=== PATIENT | female | born 1940 | race Hispanic/Latino ===

== ENCOUNTER 2017-05-23 09:20 | Emergency (ER) | payer OTHER ==
--- OUTSIDE RECORDS SUMMARY | 2017-05-23 09:23 | XMS REPORT ---
:1940 Author Organization [facility] Address [address] [place] [address] [address] [place] [address] Care Team Providers Name Role Phone CHEY CHRISTIANSON TRINA Unavailable Unavailable KIKO DONAHUE Unavailable Unavailable Problems This patient has no known problems. Allergies, Adverse Reactions, Alerts This patient has no known allergies or adverse reactions. Medications This patient has no known medications. Results Test Description Test Time Test Comments Text Results Atomic Results Result Comments POCT-GLUCOSE METER 2017-03-18 11:50:00 Test Item Value Reference Range Comments POC-GLUCOSE METER (BEAKER) (test 209 mg/dL 70-110 TESTED AT [address] mfvj=8429) [place] [id number] POCT-GLUCOSE [id number] 07:46:00 Test Item Value Reference Range Comments POC-GLUCOSE METER (BEAKER) 108 mg/dL 70-110 TESTED AT [address] (test nmzi=0062) [place] [id number] POCT-GLUCOSE [id number] 20:55:00 Test Item Value Reference Range Comments POC-GLUCOSE METER (BEAKER) 265 mg/dL 70-110 TESTED AT [address] (test bynm=3325) [place] [id number] POCT-GLUCOSE [id number] 17:40:00 Test Item Value Reference Range Comments POC-GLUCOSE METER (BEAKER) 166 mg/dL 70-110 TESTED AT [address] (test jzvp=4400) [place] [address] B-TYPE NATRIURETIC FACTOR (BNP)2017-03-17 16:20:00 Test Item Value Reference Range Comments B-TYPE NATRIURETIC PEPTIDE (BEAKER) (test 190 pg/mL 0-100 rwjt=958) POCT-GLUCOSE [id number] 11:54:00 Test Item Value Reference Range Comments POC-GLUCOSE METER (BEAKER) 161 mg/dL 70-110 TESTED AT [address] (test sivi=8176) [facility] [address] POCT-GLUCOSE [id number] 07:56:00 Test Item Value Reference Range Comments POC-GLUCOSE METER (BEAKER) 110 mg/dL 70-[address] [facility] [address] [facility] (test piqo=0385) [facility] [address] [id number] 05:36:00 Test Item Value Reference Range Comments MAGNESIUM (BEAKER) (test zuhx=878) 1.7 mg/dL 1.6-2.6 BASIC METABOLIC [id number] 05:36:00 Test Item Value Reference Range Comments SODIUM (BEAKER) (test 138 meq/L 136-145 neqm=530) POTASSIUM (BEAKER) (test 4.1 meq/L 3.5-5.1 mquj=326) CHLORIDE (BEAKER) (test 101 meq/L 98-107 hbgg=514) CO2 (BEAKER) (test 26 meq/L 22-29 pgdv=963) BLOOD UREA NITROGEN 27 mg/dL 7-21 (BEAKER) (test cqrd=200) CREATININE (BEAKER) (test 1.20 mg/dL 0.57-1.25 xgeu=567) GLUCOSE RANDOM (BEAKER) 123 mg/dL 70-105 (test vyrw=311) CALCIUM (BEAKER) (test 8.6 mg/dL 8.4-10.2 urpe=029) EGFR (BEAKER) (test 43 mL/min/1.73 sq m ESTIMATED GFR IS NOT vbbq=6672) ACCURATE CREATININE CLEARANCE IN PREDICTING GLOMERULAR FILTRATION RATE. ESTIMATED GFR IS NOT APPLICABLE FOR DIALYSIS PATIENTS. CBC W/PLT COUNT & AUTO [id number] 04:29:00 Test Item Value Reference Range Comments WHITE BLOOD CELL COUNT (BEAKER) (test ufnk=064) 6.4 K/ L 3.5-10.5 RED BLOOD CELL COUNT (BEAKER) (test emvn=370) 3.54 M/ L 3.93-5.22 HEMOGLOBIN (BEAKER) (test kebf=051) 10.3 GM/DL 11.2-15.7 HEMATOCRIT (BEAKER) (test itwh=127) 32.9 % 34.1-44.9 MEAN CORPUSCULAR VOLUME (BEAKER) (test mzva=420) 92.9 fL 79.4-94.8 MEAN CORPUSCULAR HEMOGLOBIN (BEAKER) (test 29.1 pg 25.6-32.2 mhxg=153) MEAN CORPUSCULAR HEMOGLOBIN CONC (BEAKER) (test 31.3 GM/DL 32.2-35.5 igiy=741) RED CELL DISTRIBUTION WIDTH (BEAKER) (test 17.2 % 11.7-14.4 cmkc=908) PLATELET COUNT (BEAKER) (test ucaw=667) 131 K/CU MM 150-450 MEAN PLATELET VOLUME (BEAKER) (test rtrj=909) 9.8 fL 9.4-12.3 NUCLEATED RED BLOOD CELLS (BEAKER) (test 0 /100 WBC 0-0 wgpe=518) NEUTROPHILS RELATIVE PERCENT (BEAKER) (test 57 % dhug=929) LYMPHOCYTES RELATIVE PERCENT (BEAKER) (test 28 % ftcy=867) MONOCYTES RELATIVE PERCENT (BEAKER) (test 6 % kdqw=403) EOSINOPHILS RELATIVE PERCENT (BEAKER) (test 8 % zssb=042) BASOPHILS RELATIVE PERCENT (BEAKER) (test 1 % kwxm=100) NEUTROPHILS ABSOLUTE COUNT (BEAKER) (test 3.63 K/ L 1.56-6.13 dlyd=004) LYMPHOCYTES ABSOLUTE COUNT (BEAKER) (test 1.77 K/ L 1.18-3.74 vbxm=106) MONOCYTES ABSOLUTE COUNT (BEAKER) (test 0.41 K/ L 0.24-0.36 qhhk=282) EOSINOPHILS ABSOLUTE COUNT (BEAKER) (test 0.48 K/ L 0.04-0.36 uaxe=363) BASOPHILS ABSOLUTE COUNT (BEAKER) (test 0.05 K/ L 0.01-0.08 zjnh=165) IMMATURE GRANULOCYTES-RELATIVE PERCENT (BEAKER) 1 % 0-1 (test qucm=1096) POCT-GLUCOSE [id number] 21:13:00 Test Item Value Reference Range Comments POC-GLUCOSE METER (BEAKER) 254 mg/dL 70-110 TESTED AT [address] (test dccy=1605) [place] [address] POCT-GLUCOSE [id number] 16:43:00 Test Item Value Reference Range Comments POC-GLUCOSE METER (BEAKER) 169 mg/dL 70-110 TESTED AT [address] (test njja=3380) [place] [address] PET, CARDIAC PERFUSION MULTIPLE STUDIES, REST AND [id number] 16:37: 00Reason for exam:->new CHFFINAL REPORT PROCEDURE: Rest/Stress MYOCARDIAL PERFUSION PET with regadenoson\XA9\ CPT CODE: 63037 INDICATION: Coronary evaluation in a patient with newly diagnosed congestive heart failure HISTORY: Cardiac risk factors: Diabetes, hypertension. Other cardiovascular history: Congestive heart failure. Recent cardiac symptoms: Dyspnea. Current cardiovascular-related medications: Aspirin, carvedilol, furosemide, losartan. PROTOCOL: Limited low-dose CT imaging was performed for attenuation correction. 40.2 mCi of Rb-82 chloride was injected iv at rest, and gated PET (positron emission tomography) images were obtained. Subsequently, 40.1 mCi of Rb-82 chloride was injected iv at expected peak pharmacologic effect, and gated PET images were obtained. PRELIMINARY STRESS TEST DATA FROM NONINVASIVE CARDIOLOGY: Pharmacologic stress was by 10- second iv infusionof 0.4 mg of regadenoson. Radiotracer was injected 30 seconds after start of stress. Heart rate was 86 beats/min at rest and 90 beats/min (63 % of MPHR) at tracer injection. BP was 94/60 mmHg at rest and 92/54 mmHg at tracer injection. Stress was stopped for predetermined endpoint. The patient experienced no symptoms; treatment was not required. Preliminary ECG evaluation revealed sinus rhythm at restand no ischemic changes with stress. (Final ECG interpretation and other stress and monitoring data are reported separately by Cardiology.) IMAGING FINDINGS: Study quality is good. Images obtainedafter rest and stress injections show normal LV activity. LV and RV volumes appear normal. Gated images obtained at rest and with stress show normal LV wall motion and thickening. LVEF at rest is 38%. LVEF at stress is 50%. Chest and upper abdomen CT scan showed a dilated and tortuous descending aortawith marked calcification. IMPRESSION: 1. Abnormal study. 2. Appropriate pharmacologic stress.3. Normal myocardial perfusion. 4. Moderately reduced resting LV function. No deterioration of function is noted with pharmacologic stress. 5. Normal extracardiac tracer distribution. [facility]. [facility]. 7. Descending thoracoabdominal aortic aneurysm noted. NONINVASIVE RISK STRATIFICATION: The above findings are considered intermediate risk: 1. Mild/moderate resting LV dysfunction (EF 35-49%) Signed: Jean Paul Sampsonort Verified Date/Time: 03/16/2017 16:37:45 Reading Location: [place] [id number] Reading Room Electronically signed by: JEAN PAUL SAMPSON M.D.on 09/2017 04:37 PMPOCT-GLUCOSE [id number] 11:42:00 Test Item Value Reference Range Comments POC-GLUCOSE METER (BEAKER) 182 mg/dL 70-110 TESTED AT [address] (test djit=5933) [place] [address] SPUTUM CULTURE + GRAM [id number] 11:31:00 Test Item Value Reference Range Comments CULTURE (BEAKER) (test Oropharyngeal contamination, ofov=7992) specimen rejected. Recollect requested. GRAM STAIN RESULT (BEAKER) 1+ WBCs (test aqgu=4358) GRAM STAIN RESULT (BEAKER) >25 epithelial cells (test bxhj=59699) GRAM STAIN RESULT (BEAKER) 1+ gram negative rods (test uvtz=72694) GRAM STAIN RESULT (BEAKER) 1+ gram positive rods (test mqhg=583276) GRAM STAIN RESULT (BEAKER) 4+ gram positive cocci in chains, (test kjkb=371465) pairs and clusters POCT-GLUCOSE [id number] 06:57:00 Test Item Value Reference Range Comments POC-GLUCOSE METER (BEAKER) 138 mg/dL 70-110 TESTED AT [address] (test udrz=5389) [place] [address] [id number] 05:52:00 Test Item Value Reference Range Comments MAGNESIUM (BEAKER) (test xqky=537) 1.7 mg/dL 1.6-2.6 BASIC METABOLIC [id number] 05:52:00 Test Item Value Reference Range Comments SODIUM (BEAKER) (test 140 meq/L 136-145 fgcu=128) POTASSIUM (BEAKER) (test 3.6 meq/L 3.5-5.1 thrn=172) CHLORIDE (BEAKER) (test 103 meq/L 98-107 zdxr=656) CO2 (BEAKER) (test 28 meq/L 22-29 fyif=222) BLOOD UREA NITROGEN 26 mg/dL 7-21 (BEAKER) (test thvd=328) CREATININE (BEAKER) (test 1.04 mg/dL 0.57-1.25 dgcg=610) GLUCOSE RANDOM (BEAKER) 166 mg/dL 70-105 (test qono=326) CALCIUM (BEAKER) (test 8.6 mg/dL 8.4-10.2 puei=056) EGFR (BEAKER) (test 51 mL/min/1.73 sq m ESTIMATED GFR IS NOT twbe=8246) ACCURATE CREATININE CLEARANCE IN PREDICTING GLOMERULAR FILTRATION RATE. ESTIMATED GFR IS NOT APPLICABLE FOR DIALYSIS PATIENTS. B-TYPE NATRIURETIC FACTOR (BNP)2017-03-16 05:34:00 Test Item Value Reference Range Comments B-TYPE NATRIURETIC PEPTIDE (BEAKER) (test 230 pg/mL 0-100 eqib=550) CBC W/PLT COUNT & AUTO [id number] 05:10:00 Test Item Value Reference Range Comments WHITE BLOOD CELL COUNT (BEAKER) (test vpgr=582) 6.7 K/ L 3.5-10.5 RED BLOOD CELL COUNT (BEAKER) (test kxea=907) 3.36 M/ L 3.93-5.22 HEMOGLOBIN (BEAKER) (test jqdx=591) 9.7 GM/DL 11.2-15.7 HEMATOCRIT (BEAKER) (test guhw=748) 30.9 % 34.1-44.9 MEAN CORPUSCULAR VOLUME (BEAKER) (test czcc=321) 92.0 fL 79.4-94.8 MEAN CORPUSCULAR HEMOGLOBIN (BEAKER) (test 28.9 pg 25.6-32.2 wpzc=666) MEAN CORPUSCULAR HEMOGLOBIN CONC (BEAKER) (test 31.4 GM/DL 32.2-35.5 udtc=435) RED CELL DISTRIBUTION WIDTH (BEAKER) (test 17.1 % 11.7-14.4 fkhl=185) PLATELET COUNT (BEAKER) (test mdgn=892) 126 K/CU MM 150-450 MEAN PLATELET VOLUME (BEAKER) (test evvw=473) 10.1 fL 9.4-12.3 NUCLEATED RED BLOOD CELLS (BEAKER) (test 0 /100 WBC 0-0 ctyd=111) NEUTROPHILS RELATIVE PERCENT (BEAKER) (test 60 % rmmm=339) LYMPHOCYTES RELATIVE PERCENT (BEAKER) (test 24 % hhyc=816) MONOCYTES RELATIVE PERCENT (BEAKER) (test 7 % lvbc=740) EOSINOPHILS RELATIVE PERCENT (BEAKER) (test 7 % jpmk=497) BASOPHILS RELATIVE PERCENT (BEAKER) (test 1 % eovq=687) NEUTROPHILS ABSOLUTE COUNT (BEAKER) (test 4.03 K/ L 1.56-6.13 hflf=612) LYMPHOCYTES ABSOLUTE COUNT (BEAKER) (test 1.63 K/ L 1.18-3.74 djoj=030) MONOCYTES ABSOLUTE COUNT (BEAKER) (test 0.49 K/ L 0.24-0.36 vten=354) EOSINOPHILS ABSOLUTE COUNT (BEAKER) (test 0.47 K/ L 0.04-0.36 xvlb=721) BASOPHILS ABSOLUTE COUNT (BEAKER) (test 0.06 K/ L 0.01-0.08 aual=127) IMMATURE GRANULOCYTES-RELATIVE PERCENT (BEAKER) 0 % 0-1 (test gxth=0841) POCT-GLUCOSE [id number] 22:48:00 Test Item Value Reference Range Comments POC-GLUCOSE METER (BEAKER) 311 mg/dL 70-110 Notified ANGELIKA MONTENEGRO/TESTED AT [facility] (test pauz=0164) [address] [place] [address] POCT-GLUCOSE [id number] 21:25:00 Test Item Value Reference Range Comments POC-GLUCOSE METER (BEAKER) 386 mg/dL 70-110 Notified ANGELIKA MONTENEGRO/TESTED AT [facility] (test djxf=0889) [address] [place] [address] VITAMIN B12 AND [id number] 17:27:00 Test Item Value Reference Range Comments VITAMIN B12 (BEAKER) (test wlwo=616) 722 pg/mL 213-816 FOLATE (BEAKER) (test wieb=278) 33.6 ng/mL >=7.0 POCT-GLUCOSE [id number] 16:43:00 Test Item Value Reference Range Comments POC-GLUCOSE METER (BEAKER) 283 mg/dL 70-110 TESTED AT [address] (test nezs=4627) [facility] [address] TROPONIN [id number] 16:26:00 Test Item Value Reference Range Comments TROPONIN I (BEAKER) (test khxi=366) 0.03 ng/mL 0.00-0.03 Troponin I (TnI) levels must be interpreted in the context of the presenting symptoms and the clinical findings. Elevated TnI levels indicate myocardial damage, but are not specific for ischemic heart disease. Elevated TnI levels are seen in patients with other cardiac conditions (including myocarditis and congestive heart failure), and slight TnI elevations occur in patients with other conditions, including sepsis, renal failure, acidosis, acute neurological disease, and persistent tachyarrhythmia.[id number] 14:58:00 Test Item Value Reference Range Comments FERRITIN (BEAKER) (test knpx=496) 103 ng/mL 5-275 IRON, TIBC, % SAT. (WITHOUT FERRITIN)2017-03-15 14:04:00 Test Item Value Reference Range Comments IRON (BEAKER) (test zmco=585) 40 ug/dL 40-160 TOTAL IRON BINDING CAPACITY (BEAKER) (test 265 ug/dL 250-450 cmdr=799) IRON % SATURATION (2) (BEAKER) (test itud=2883) 15 % 20-55 HEMOGLOBIN AND [id number] 13:23:00 Test Item Value Reference Range Comments HEMOGLOBIN (BEAKER) (test iavn=974) 11.0 GM/DL 11.2-15.7 HEMATOCRIT (BEAKER) (test ljpy=047) 34.8 % 34.1-44.9 RESPIRATORY PANEL [id number] 11:18:00 Test Item Value Reference Range Comments HUMAN METAPNEUMOVIRUS (BEAKER) (test Not detected Not detected, Inconclusive abui=1181) RHINOVIRUS (BEAKER) (test mvho=6954) Not detected Not detected, Inconclusive INFLUENZA A (BEAKER) (test Not detected Not detected, Inconclusive gaot=2939) INFLUENZA A SUBTYPE H1 (BEAKER) Not detected Not detected, Inconclusive (test uohp=5403) INFLUENZA A SUBTYPE H3 (BEAKER) Not detected Not detected, Inconclusive (test mshb=0411) INFLUENZA A SUBTYPE H1-2009 (BEAKER) Not detected Not detected, Inconclusive (test rfim=3239) INFLUENZA B (BEAKER) (test Not detected Not detected, Inconclusive mjvy=4278) RESPIRATORY SYNCYTIAL VIRUS (BEAKER) Not detected Not detected, Inconclusive (test nmac=3850) PARAINFLUENZA VIRUS 1 (BEAKER) (test Not detected Not detected, Inconclusive hbpk=5326) PARAINFLUENZA VIRUS 2 (BEAKER) (test Not detected Not detected, Inconclusive qorl=2253) PARAINFLUENZA VIRUS 3 (BEAKER) (test Not detected Not detected, Inconclusive lgts=5709) PARAINFLUENZA VIRUS 4 (BEAKER) (test Not detected Not detected, Inconclusive cbwp=7290) ADENOVIRUS (BEAKER) (test wnwz=9724) Not detected Not detected, Inconclusive CORONAVIRUS 229E (BEAKER) (test Not detected Not detected, Inconclusive atvj=3715) CORONAVIRUS HKU1 (BEAKER) (test Not detected Not detected, Inconclusive ufhb=4752) CORONAVIRUS NL63 (BEAKER) (test Not detected Not detected, Inconclusive qyzm=4093) CORONAVIRUS OC43 (BEAKER) (test Not detected Not detected, Inconclusive ombl=3037) BORDETELLA PERTUSSIS (BEAKER) (test Not detected Not detected, Inconclusive cvsg=3119) CHLAMYDOPHILA PNEUMONIAE (BEAKER) Not detected Not detected, Inconclusive (test mhvi=1339) MYCOPLASMA PNEUMONIAE (BEAKER) (test Not detected Not detected, Inconclusive noba=0317) POCT-GLUCOSE [id number] 11:10:00 Test Item Value Reference Range Comments POC-GLUCOSE METER (BEAKER) 251 mg/dL 70-110 TESTED AT [address] (test wyew=7587) [place] [address] POCT-GLUCOSE [id number] 07:47:00 Test Item Value Reference Range Comments POC-GLUCOSE METER (BEAKER) 92 mg/dL 70-110 TESTED AT [address] (test slsa=4846) [place] [address] [id number] 05:58:00 Test Item Value Reference Range Comments THYROID STIMULATING HORMONE (BEAKER) (test 1.17 uIU/mL 0.35-4.94 isbe=739) [id number] 05:42:00 Test Item Value Reference Range Comments MAGNESIUM (BEAKER) (test kkbu=025) 1.5 mg/dL 1.6-2.6 BASIC METABOLIC [id number] 05:42:00 Test Item Value Reference Range Comments SODIUM (BEAKER) (test 141 meq/L 136-145 nfdj=252) POTASSIUM (BEAKER) (test 3.6 meq/L 3.5-5.1 igsx=002) CHLORIDE (BEAKER) (test 102 meq/L 98-107 tjci=008) CO2 (BEAKER) (test 28 meq/L 22-29 vvos=389) BLOOD UREA NITROGEN 22 mg/dL 7-21 (BEAKER) (test uciy=337) CREATININE (BEAKER) (test 0.92 mg/dL 0.57-1.25 wxwk=943) GLUCOSE RANDOM (BEAKER) 92 mg/dL 70-105 (test sybp=399) CALCIUM (BEAKER) (test 8.7 mg/dL 8.4-10.2 wjoh=228) EGFR (BEAKER) (test 59 mL/min/1.73 sq m ESTIMATED GFR IS NOT pebd=6771) ACCURATE CREATININE CLEARANCE IN PREDICTING GLOMERULAR FILTRATION RATE. ESTIMATED GFR IS NOT APPLICABLE FOR DIALYSIS PATIENTS. B-TYPE NATRIURETIC FACTOR (BNP)2017-03-15 05:38:00 Test Item Value Reference Range Comments B-TYPE NATRIURETIC PEPTIDE (BEAKER) (test 1095 pg/mL 0-100 wjty=832) LACTIC ACID, VENOUS, WHOLE [id number] 05:36:00 Test Item Value Reference Range Comments LACTATE BLOOD VENOUS (2) (BEAKER) (test 0.7 mmol/L 0.5-2.2 vrub=5869) Effective 06/10/2015: Units/Reference Range ChangeNew: 0.5-2.2 mmol/L Previous: 5 -20 mg/dLCBC W/PLT COUNT & AUTO [id number] 05:24:00 Test Item Value Reference Range Comments WHITE BLOOD CELL COUNT (BEAKER) (test lmwa=706) 8.1 K/ L 3.5-10.5 RED BLOOD CELL COUNT (BEAKER) (test orjv=331) 3.47 M/ L 3.93-5.22 HEMOGLOBIN (BEAKER) (test skld=532) 9.9 GM/DL 11.2-15.7 HEMATOCRIT (BEAKER) (test bpny=597) 31.4 % 34.1-44.9 MEAN CORPUSCULAR VOLUME (BEAKER) (test ekoa=710) 90.5 fL 79.4-94.8 MEAN CORPUSCULAR HEMOGLOBIN (BEAKER) (test 28.5 pg 25.6-32.2 lhis=913) MEAN CORPUSCULAR HEMOGLOBIN CONC (BEAKER) (test 31.5 GM/DL 32.2-35.5 nqyu=941) RED CELL DISTRIBUTION WIDTH (BEAKER) (test 17.1 % 11.7-14.4 tdlc=577) PLATELET COUNT (BEAKER) (test lnjr=463) 136 K/CU MM 150-450 MEAN PLATELET VOLUME (BEAKER) (test jmrc=645) 10.3 fL 9.4-12.3 NUCLEATED RED BLOOD CELLS (BEAKER) (test 0 /100 WBC 0-0 tuqb=175) NEUTROPHILS RELATIVE PERCENT (BEAKER) (test 60 % tabi=270) LYMPHOCYTES RELATIVE PERCENT (BEAKER) (test 24 % weag=559) MONOCYTES RELATIVE PERCENT (BEAKER) (test 8 % egny=200) EOSINOPHILS RELATIVE PERCENT (BEAKER) (test 7 % lhvn=086) BASOPHILS RELATIVE PERCENT (BEAKER) (test 1 % mlqh=586) NEUTROPHILS ABSOLUTE COUNT (BEAKER) (test 4.86 K/ L 1.56-6.13 vypv=293) LYMPHOCYTES ABSOLUTE COUNT (BEAKER) (test 1.92 K/ L 1.18-3.74 wtpf=281) MONOCYTES ABSOLUTE COUNT (BEAKER) (test 0.63 K/ L 0.24-0.36 rezv=006) EOSINOPHILS ABSOLUTE COUNT (BEAKER) (test 0.56 K/ L 0.04-0.36 chze=259) BASOPHILS ABSOLUTE COUNT (BEAKER) (test 0.06 K/ L 0.01-0.08 tmsd=136) IMMATURE GRANULOCYTES-RELATIVE PERCENT (BEAKER) 0 % 0-1 (test eexe=3043) POCT-GLUCOSE [id number] 00:10:00 Test Item Value Reference Range Comments POC-GLUCOSE METER (BEAKER) 252 mg/dL 70-110 TESTED AT [address] (test igsa=3178) [place] [address] POCT-GLUCOSE [id number] 21:11:00 Test Item Value Reference Range Comments POC-GLUCOSE METER (BEAKER) 411 mg/dL 70-110 Will Repeat Test/TESTED AT (test diqf=4935) [place] [address] [id number] 19:22:00 Test Item Value Reference Range Comments PARTIAL THROMBOPLASTIN TIME (BEAKER) (test 29.7 seconds 22.5-36.0 wxji=404) Prior to initiating heparinURINALYSIS W/ [id number] 19:16:00 Test Item Value Reference Range Comments COLOR (BEAKER) (test opiu=281) Light Yellow CLARITY (BEAKER) (test mtto=647) Clear SPECIFIC GRAVITY UA (BEAKER) (test knje=113) 1.009 1.001-1.035 PH UA (BEAKER) (test ymge=553) 5.5 5.0-8.0 PROTEIN UA (BEAKER) (test djfl=995) Negative Negative GLUCOSE UA (BEAKER) (test tqvb=188) 100 mg/dL Negative KETONES UA (BEAKER) (test dbrk=713) Negative Negative BILIRUBIN UA (BEAKER) (test hwug=995) Negative Negative BLOOD UA (BEAKER) (test nvxc=998) Negative Negative NITRITE UA (BEAKER) (test qtbo=765) Negative Negative LEUKOCYTE ESTERASE UA (BEAKER) (test bcvy=322) Negative Negative UROBILINOGEN UA (BEAKER) (test hxlb=627) 0.2 mg/dL 0.2-1.0 RBC UA (BEAKER) (test bahc=403) 1 /HPF WBC UA (BEAKER) (test irux=462) 1 /HPF SQUAMOUS EPITHELIAL (BEAKER) (test qzix=730) 2 /HPF SOURCE(BEAKER) (test emtp=7218) Urine, Voided RAPID STREP A [id number] 19:01:00 Test Item Value Reference Range Comments STREP A ANTIGEN (BEAKER) (test rone=381) Negative Negative CT, CHEST WITH IV CONTRAST- PE TEST [id number] 18:46:00Reason for exam:-& gt;SHORTNESS OF BREATHover the last 4 daysFINAL REPORT PE protocol Chest CT Clinical History: Short of breath Comparison: February 2014 Technique:413 images were submitted for interpretation. Precontrast axial images ofthe chest were obtained at the pulmonary artery level for the purpose of monitoring subsequent optimal contrast enhancement of the pulmonary arteries. Post contrast axial images of the chest were obtained from the thoracic inlet to the upper abdomen at 3 mm intervals. 3-D reconstruction and multiplanar reformation of the pulmonary arteries were performed by the dictating radiologist at the [facility] workstation. This exam was performed according to our departmental dose-optimization program which includes automated exposure control, adjustment of the mA and/or kV according to patient size and/or use ofiterative reconstruction technique. Report:Pulmonary circulation: There is no evidence of a filling defect or cut off sign. The distal vasculature is hard to evaluate inferiorly secondary to tortuosityAorta: Atherosclerotic change with dilatation of the descending thoracic aortaLungs: Fibrotic scarring at both lung apices. Emphysematous changes present with multiple peripheral blebs. Honeycomb lung is visualized inferiorly.Airways: There is no evidence of obstructionPleura: There is no evidence of apneumothorax or a pleural effusionMediastinum: The thyroid is not adequately seen. The visualized esophagus is unremarkable.Heart: ProminentPericardium: NegativeNodes: NegativeBones: Degenerative changeSupport lines and tubes: NegativeUpper abdomen : Unremarkable Impression:Specifically there is no evidence of a pulmonary embolus. Compared to the prior study worsening emphysematous changes are noted particularly in both lung bases.Aortic aneurysmal dilatation of the descending thoracic aorta not significantly changed as compared to the prior study Signed : Juany De La Cruz Verified Date/Time: 03/14/2017 18:46:13 Reading Location : [address] Consult Reading Room -[id number] 17:53:00 Test Item Value Reference Range Comments D-DIMER QUANTITATIVE (BEAKER) (test fyfv=493) 13.42 MG/L FEU <0.50 Intended Use: The D-Dimer Assay can be used to aid in the diagnosis of Deep Vein Thrombosis (DVT) and Pulmonary Embolism Disease (PED).In patients with low pre-test probability, various studies concerning STA Liatest D-dimer test have reported that with a cutoff value of 0.50 MG/L FEU, the Negative Predictive Value (NPV) regarding the exclusion of thrombosis is within 95-100% range.RAPID INFLUENZA A&B [id number] 17:01:00 Test Item Value Reference Range Comments RAPID INFLUENZA A AG (BEAKER) (test Negative Negative, Inconclusive orwf=8589) RAPID INFLUENZA B AG (BEAKER) (test Negative Negative, Inconclusive bjar=9837) RAD, CHEST, 1 VIEW, NON [id number] 15:14:00Reason for exam:->SHORTNESS OF BREATHover the last 4 daysFINAL REPORT Chest one view AP 03/14/2017 3:14 PM CLINICAL INDICATION: SHORTNESS OF BREATH COMPARISON: 2014 IMPRESSION: There are chronic appearing fibrotic changes in both lungs. Superimposed acute infectious/inflammatory process should be excluded clinically. The cardiac silhouette is enlarged, but stable. The central pulmonary vasculature is not engorged. Signed: Hai Garcia Verified Date/Time: 03/14/2017 15:14:37 Reading Location: [address] Consult Reading Room CREATINE KINASE (CK), TOTAL AND [id number] 14:52:00 Test Item Value Reference Range Comments CREATINE KINASE TOTAL (BEAKER) (test bale=973) 32 U/L 29-200 CREATINE KINASE-MB (BEAKER) (test wbhc=539) 1.5 ng/mL 0.0-6.6 CREATINE KINASE-MB INDEX (BEAKER) (test wxfu=575) 4.7 % CK-MB Reference Range:<6.7 Normal6.7-10.0 Borderline>10.0 AbnormalTROPONIN [id number] 14:52:00 Test Item Value Reference Range Comments TROPONIN I (BEAKER) (test skts=809) 0.03 ng/mL 0.00-0.03 Troponin I (TnI) levels must be interpreted in the context of the presenting symptoms and the clinical findings. Elevated TnI levels indicate myocardial damage, but are not specific for ischemic heart disease. Elevated TnI levels are seen in patients with other cardiac conditions (including myocarditis and congestive heart failure), and slight TnI elevations occur in patients with other conditions, including sepsis, renal failure, acidosis, acute neurological disease, and persistent tachyarrhythmia.B-TYPE NATRIURETIC FACTOR (BNP) 14:52:00 Test Item Value Reference Range Comments B-TYPE NATRIURETIC PEPTIDE (BEAKER) (test 1761 pg/mL 0-100 reth=983) [id number] 14:45:00 Test Item Value Reference Range Comments MAGNESIUM (BEAKER) (test 2.0 mg/dL 1.6-2.6 Specimen slightly hemolyzed haah=260) BASIC METABOLIC [id number] 14:45:00 Test Item Value Reference Range Comments SODIUM (BEAKER) (test 136 meq/L 136-145 ndcw=704) POTASSIUM (BEAKER) (test 4.2 meq/L 3.5-5.1 Specimen slightly xqfh=635) hemolyzed CHLORIDE (BEAKER) (test 104 meq/L 98-107 kakc=567) CO2 (BEAKER) (test 26 meq/L 22-29 tcga=184) BLOOD UREA NITROGEN 24 mg/dL 7-21 (BEAKER) (test zitj=218) CREATININE (BEAKER) (test 1.06 mg/dL 0.57-1.25 Specimen slightly ppob=552) hemolyzed GLUCOSE RANDOM (BEAKER) 243 mg/dL 70-105 (test voqu=388) CALCIUM (BEAKER) (test 8.5 mg/dL 8.4-10.2 uwed=960) EGFR (BEAKER) (test 50 mL/min/1.73 sq m ESTIMATED GFR IS NOT wlnn=9400) ACCURATE CREATININE CLEARANCE IN PREDICTING GLOMERULAR FILTRATION RATE. ESTIMATED GFR IS NOT APPLICABLE FOR DIALYSIS PATIENTS. CBC W/PLT COUNT & AUTO [id number] 14:29:00 Test Item Value Reference Range Comments WHITE BLOOD CELL COUNT (BEAKER) (test xeqb=468) 9.8 K/ L 3.5-10.5 RED BLOOD CELL COUNT (BEAKER) (test asot=958) 3.75 M/ L 3.93-5.22 HEMOGLOBIN (BEAKER) (test ygot=364) 10.9 GM/DL 11.2-15.7 HEMATOCRIT (BEAKER) (test iilz=201) 35.3 % 34.1-44.9 MEAN CORPUSCULAR VOLUME (BEAKER) (test ndvf=277) 94.1 fL 79.4-94.8 MEAN CORPUSCULAR HEMOGLOBIN (BEAKER) (test 29.1 pg 25.6-32.2 fmuc=608) MEAN CORPUSCULAR HEMOGLOBIN CONC (BEAKER) (test 30.9 GM/DL 32.2-35.5 bvil=788) RED CELL DISTRIBUTION WIDTH (BEAKER) (test 17.4 % 11.7-14.4 jpri=939) PLATELET COUNT (BEAKER) (test carm=293) 131 K/CU MM 150-450 MEAN PLATELET VOLUME (BEAKER) (test eqwv=825) 10.3 fL 9.4-12.3 NUCLEATED RED BLOOD CELLS (BEAKER) (test 0 /100 WBC 0-0 gwej=808) NEUTROPHILS RELATIVE PERCENT (BEAKER) (test 62 % kavd=161) LYMPHOCYTES RELATIVE PERCENT (BEAKER) (test 23 % vafx=572) MONOCYTES RELATIVE PERCENT (BEAKER) (test 7 % xvxd=781) EOSINOPHILS RELATIVE PERCENT (BEAKER) (test 7 % zyiz=091) BASOPHILS RELATIVE PERCENT (BEAKER) (test 1 % njmz=098) NEUTROPHILS ABSOLUTE COUNT (BEAKER) (test 6.08 K/ L 1.56-6.13 zjcy=261) LYMPHOCYTES ABSOLUTE COUNT (BEAKER) (test 2.29 K/ L 1.18-3.74 fmzo=123) MONOCYTES ABSOLUTE COUNT (BEAKER) (test 0.66 K/ L 0.24-0.36 qbgi=594) EOSINOPHILS ABSOLUTE COUNT (BEAKER) (test 0.68 K/ L 0.04-0.36 kypl=503) BASOPHILS ABSOLUTE COUNT (BEAKER) (test 0.06 K/ L 0.01-0.08 pekh=635) IMMATURE GRANULOCYTES-RELATIVE PERCENT (BEAKER) 0 % 0-1 (test ibam=5894) POCT-GLUCOSE [id number] 11:44:00 Test Item Value Reference Range Comments POC-GLUCOSE METER (BEAKER) 220 mg/dL 70-110 TESTED AT [address] (test uceh=7328) [place] [id number] POCT-GLUCOSE [id number] 07:00:00 Test Item Value Reference Range Comments POC-GLUCOSE METER (BEAKER) 173 mg/dL 70-110 TESTED AT [address] (test uybm=1634) [facility] [address] CBC W/PLT COUNT & AUTO [id number] 04:54:00 Test Item Value Reference Range Comments WHITE BLOOD CELL COUNT (BEAKER) (test ejoo=306) 6.8 K/ L 3.5-10.5 RED BLOOD CELL COUNT (BEAKER) (test oxhj=184) 3.49 M/ L 3.93-5.22 HEMOGLOBIN (BEAKER) (test yzgu=153) 10.1 GM/DL 11.2-15.7 HEMATOCRIT (BEAKER) (test hylx=401) 33.5 % 34.1-44.9 MEAN CORPUSCULAR VOLUME (BEAKER) (test ermo=483) 96.0 fL 79.4-94.8 MEAN CORPUSCULAR HEMOGLOBIN (BEAKER) (test 28.9 pg 25.6-32.2 rzdb=506) MEAN CORPUSCULAR HEMOGLOBIN CONC (BEAKER) (test 30.1 GM/DL 32.2-35.5 jftc=011) RED CELL DISTRIBUTION WIDTH (BEAKER) (test 15.5 % 11.7-14.4 xtsi=590) PLATELET COUNT (BEAKER) (test mglf=783) 144 K/CU MM 150-450 MEAN PLATELET VOLUME (BEAKER) (test ijag=414) 9.4 fL 9.4-12.3 NUCLEATED RED BLOOD CELLS (BEAKER) (test 0 /100 WBC 0-0 kaqs=919) NEUTROPHILS RELATIVE PERCENT (BEAKER) (test 54 % qixm=334) LYMPHOCYTES RELATIVE PERCENT (BEAKER) (test 29 % zkeo=859) MONOCYTES RELATIVE PERCENT (BEAKER) (test 8 % mcty=132) EOSINOPHILS RELATIVE PERCENT (BEAKER) (test 7 % nvwo=102) BASOPHILS RELATIVE PERCENT (BEAKER) (test 1 % lkqf=094) NEUTROPHILS ABSOLUTE COUNT (BEAKER) (test 3.65 K/ L 1.56-6.13 gyga=926) LYMPHOCYTES ABSOLUTE COUNT (BEAKER) (test 1.99 K/ L 1.18-3.74 ctfh=719) MONOCYTES ABSOLUTE COUNT (BEAKER) (test 0.54 K/ L 0.24-0.36 yqel=932) EOSINOPHILS ABSOLUTE COUNT (BEAKER) (test 0.49 K/ L 0.04-0.36 xlzk=442) BASOPHILS ABSOLUTE COUNT (BEAKER) (test 0.06 K/ L 0.01-0.08 njdu=124) IMMATURE GRANULOCYTES-RELATIVE PERCENT (BEAKER) 1 % 0-1 (test gytp=5447) BASIC METABOLIC [id number] 04:33:00 Test Item Value Reference Range Comments SODIUM (BEAKER) (test 128 meq/L 136-145 xljk=858) POTASSIUM (BEAKER) (test 4.7 meq/L 3.5-5.1 wgdi=179) CHLORIDE (BEAKER) (test 99 meq/L 98-107 bbos=325) CO2 (BEAKER) (test 23 meq/L 22-29 uzvo=812) BLOOD UREA NITROGEN 18 mg/dL 7-21 (BEAKER) (test pyyg=110) CREATININE (BEAKER) (test 1.18 mg/dL 0.57-1.25 dxhd=769) GLUCOSE RANDOM (BEAKER) 174 mg/dL 70-105 (test uxug=193) CALCIUM (BEAKER) (test 8.1 mg/dL 8.4-10.2 vrvk=287) EGFR (BEAKER) (test 44 mL/min/1.73 sq m ESTIMATED GFR IS NOT ghpu=7555) ACCURATE CREATININE CLEARANCE IN PREDICTING GLOMERULAR FILTRATION RATE. ESTIMATED GFR IS NOT APPLICABLE FOR DIALYSIS PATIENTS. POCT-GLUCOSE [id number] 20:41:00 Test Item Value Reference Range Comments POC-GLUCOSE METER (BEAKER) 164 mg/dL 70-110 TESTED AT [address] (test ennz=9498) [facility] [address] POCT-GLUCOSE [id number] 16:54:00 Test Item Value Reference Range Comments POC-GLUCOSE METER (BEAKER) 332 mg/dL 70-110 Notified ANGELIKA MONTENEGRO/TESTED AT [facility] (test xijn=4784) [address] [place] [id number] URINALYSIS W/ REFLEX URINE [id number] 15:16:00 Test Item Value Reference Range Comments COLOR (BEAKER) (test jvky=391) Yellow CLARITY (BEAKER) (test idcn=247) Hazy SPECIFIC GRAVITY UA (BEAKER) (test tyas=043) 1.016 1.001-1.035 PH UA (BEAKER) (test igkf=254) 6.5 5.0-8.0 PROTEIN UA (BEAKER) (test dxfc=807) 50 mg/dL Negative GLUCOSE UA (BEAKER) (test lmmh=615) 200 mg/dL Negative KETONES UA (BEAKER) (test dcgh=732) Negative Negative BILIRUBIN UA (BEAKER) (test kwzb=560) Negative Negative BLOOD UA (BEAKER) (test zvcs=860) Negative Negative NITRITE UA (BEAKER) (test psir=000) Negative Negative LEUKOCYTE ESTERASE UA (BEAKER) (test jfad=207) Negative Negative UROBILINOGEN UA (BEAKER) (test fklx=160) 0.2 mg/dL 0.2-1.0 RBC UA (BEAKER) (test zhjc=454) 0 /HPF WBC UA (BEAKER) (test igml=351) < /HPF MUCUS (BEAKER) (test dule=3927) Rare SQUAMOUS EPITHELIAL (BEAKER) (test ijvo=322) 6 /HPF HYALINE CASTS (BEAKER) (test mmjz=222) 2 /LPF CASTS (BEAKER) (test mghd=4794) 2 /LPF SOURCE(BEAKER) (test ddzc=5059) POCT-GLUCOSE [id number] 11:22:00 Test Item Value Reference Range Comments POC-GLUCOSE METER (BEAKER) 251 mg/dL 70-[address] [facility] [address] [place] [address] (test nejl=5261) [facility] [address] POCT-GLUCOSE [id number] 06:48:00 Test Item Value Reference Range Comments POC-GLUCOSE METER (BEAKER) 289 mg/dL 70-110 TESTED AT [address] (test ckfc=8517) [facility] [address] HEPATIC FUNCTION [id number] 06:19:00 Test Item Value Reference Range Comments TOTAL PROTEIN (BEAKER) (test bdls=662) 7.4 gm/dL 6.0-8.3 ALBUMIN (BEAKER) (test exzs=8018) 3.5 g/dL 3.5-5.0 BILIRUBIN TOTAL (BEAKER) (test ltzy=498) 0.4 mg/dL 0.2-1.2 BILIRUBIN DIRECT (BEAKER) (test alva=234) 0.2 mg/dL 0.1-0.5 ALKALINE PHOSPHATASE (BEAKER) (test scgb=977) 63 U/L 40-150 AST (SGOT) (BEAKER) (test dpry=788) 12 U/L 5-34 ALT (SGPT) (BEAKER) (test wgky=907) < U/L 6-55 BASIC METABOLIC [id number] 06:14:00 Test Item Value Reference Range Comments SODIUM (BEAKER) (test 133 meq/L 136-145 ssfr=031) POTASSIUM (BEAKER) (test 4.1 meq/L 3.5-5.1 idke=486) CHLORIDE (BEAKER) (test 99 meq/L 98-107 wudz=529) CO2 (BEAKER) (test 25 meq/L 22-29 lupu=655) BLOOD UREA NITROGEN 14 mg/dL 7-21 (BEAKER) (test lepe=682) CREATININE (BEAKER) (test 1.06 mg/dL 0.57-1.25 lirv=888) GLUCOSE RANDOM (BEAKER) 266 mg/dL 70-105 (test usxe=292) CALCIUM (BEAKER) (test 8.8 mg/dL 8.4-10.2 khva=696) EGFR (BEAKER) (test 50 mL/min/1.73 sq m ESTIMATED GFR IS NOT bxte=7653) ACCURATE CREATININE CLEARANCE IN PREDICTING GLOMERULAR FILTRATION RATE. ESTIMATED GFR IS NOT APPLICABLE FOR DIALYSIS PATIENTS. [id number] 05:47:00 Test Item Value Reference Range Comments PROTIME (BEAKER) (test uglw=112) 16.5 seconds 11.7-14.7 INR (BEAKER) (test rxob=848) 1.3 <=5.9 PARTIAL THROMBOPLASTIN TIME (BEAKER) (test 31.0 seconds 22.5-36.0 derp=368) RECOMMENDED COUMADIN/WARFARIN INR THERAPY RANGESSTANDARD DOSE: 2.0 - 3.0 Includes: PROPHYLAXIS forvenous thrombosis, systemic embolization; TREATMENT for venous thrombosis and/or pulmonary embolus.HIGH RISK: Target INR is 2.5-3.5 for patients with mechanical heart valves.CBC W/PLT COUNT & AUTO [id number] 05:39:00 Test Item Value Reference Range Comments WHITE BLOOD CELL COUNT (BEAKER) (test hpec=229) 6.6 K/ L 3.5-10.5 RED BLOOD CELL COUNT (BEAKER) (test hwpb=398) 3.87 M/ L 3.93-5.22 HEMOGLOBIN (BEAKER) (test ontp=760) 11.3 GM/DL 11.2-15.7 HEMATOCRIT (BEAKER) (test rfux=815) 36.6 % 34.1-44.9 MEAN CORPUSCULAR VOLUME (BEAKER) (test oosq=614) 94.6 fL 79.4-94.8 MEAN CORPUSCULAR HEMOGLOBIN (BEAKER) (test 29.2 pg 25.6-32.2 wueo=823) MEAN CORPUSCULAR HEMOGLOBIN CONC (BEAKER) (test 30.9 GM/DL 32.2-35.5 hwkw=068) RED CELL DISTRIBUTION WIDTH (BEAKER) (test 15.9 % 11.7-14.4 wmcv=801) PLATELET COUNT (BEAKER) (test tjqk=400) 213 K/CU MM 150-450 MEAN PLATELET VOLUME (BEAKER) (test wwvz=688) 9.1 fL 9.4-12.3 NUCLEATED RED BLOOD CELLS (BEAKER) (test 0 /100 WBC 0-0 rzmm=497) NEUTROPHILS RELATIVE PERCENT (BEAKER) (test 58 % fhwp=413) LYMPHOCYTES RELATIVE PERCENT (BEAKER) (test 29 % mnmi=167) MONOCYTES RELATIVE PERCENT (BEAKER) (test 8 % qjps=938) EOSINOPHILS RELATIVE PERCENT (BEAKER) (test 4 % kmvp=655) BASOPHILS RELATIVE PERCENT (BEAKER) (test 1 % yeot=860) NEUTROPHILS ABSOLUTE COUNT (BEAKER) (test 3.77 K/ L 1.56-6.13 ezph=859) LYMPHOCYTES ABSOLUTE COUNT (BEAKER) (test 1.88 K/ L 1.18-3.74 bazb=378) MONOCYTES ABSOLUTE COUNT (BEAKER) (test 0.52 K/ L 0.24-0.36 pnbg=809) EOSINOPHILS ABSOLUTE COUNT (BEAKER) (test 0.28 K/ L 0.04-0.36 kfub=439) BASOPHILS ABSOLUTE COUNT (BEAKER) (test 0.07 K/ L 0.01-0.08 fopf=040) IMMATURE GRANULOCYTES-RELATIVE PERCENT (BEAKER) 1 % 0-1 (test uhwf=0688) POCT-GLUCOSE [id number] 05:09:00 Test Item Value Reference Range Comments POC-GLUCOSE METER (BEAKER) 256 mg/dL 70-110 TESTED AT [address] (test gbxy=5763) [place] [address] POCT-GLUCOSE [id number] 21:00:00 Test Item Value Reference Range Comments POC-GLUCOSE METER (BEAKER) 215 mg/dL 70-110 TESTED AT [address] (test sfpq=0982) [place] [address]
--- OUTSIDE RECORDS SUMMARY | 2017-05-23 09:23 | XMS REPORT | Clinical Summary ---
:1940 Author Organization [facility] Address [address] [place] [address] Phone Care Team Providers Name Role Phone Unavailable Primary Care Provider Unavailable Allergies Active Allergy Reactions Severity Noted Date Comments Morphine Nausea And Vomiting 02/27/2014 Penicillins Rash Low 09/10/2012 Current Medications Prescription Sig. Disp. Refills Start End Date Status Date levothyroxine Take 100 mcg by Active (SYNTHROID, mouth daily. LEVOTHROID) 100 MCG tablet pravastatin Take 40 mg by mouth Active (PRAVACHOL) 40 MG daily. tablet alendronate Take 70 mg by mouth Active (FOSAMAX) 70 MG every 7 days. Take tablet Monday in the morning with a full glass of water, on an empty stomach, and do not take anything else by mouth or lie down for the next 30 min. aspirin 81 MG EC Take 81 mg by mouth Active tablet daily. benzonatate Take 100 mg by Active (TESSALON) 100 MG mouth 3 (three) capsule times daily as needed for Cough. insulin glargine Inject 8 Units Active (LANTUS) 100 subcutaneously unit/mL injection nightly Use as directed . albuterol HFA Inhale 2 puffs by Active (VENTOLIN HFA) 90 mouth via inhaler mcg/actuation every 6 (six) hours inhaler as needed for Wheezing or Shortness of Breath. insulin aspart Inject 2 Units Active (NOVOLOG) 100 subcutaneously 3 unit/mL injection (three) times daily before meals. cycloSPORINE Place 1 drop into Active (RESTASIS) 0.05 % both eyes every 12 ophthalmic (twelve) hours. emulsion folic acid Take 1 mg by mouth Active (FOLVITE) 1 MG daily. tablet codeine-guaifenesi Take 5 mLs by mouth Active n (GUAIFENESIN AC) every night as 10-100 mg/5 mL needed for Cough. liquid latanoprost Place 1 drop into Active (XALATAN) 0.005 % both eyes nightly. ophthalmic solution leflunomide Take 20 mg by mouth Active (ARAVA) 20 MG nightly. tablet levalbuterol Take 1 ampule by Active (XOPENEX) 0.63 nebulization every mg/3 mL nebulizer 6 (six) hours as solution needed for Wheezing or Shortness of Breath. pregabalin Take 100 mg by Active (LYRICA) 100 MG mouth 2 (two) times capsule daily. carvedilol (COREG) Take 1 tablet 60 tablet 0 03/18/19 Active 3.125 MG tablet (3.125 mg total) by 8 19 mouth 2 (two) times daily. furosemide (LASIX) Take 1 tablet (20 20 tablet 0 03/20/19 Active 20 MG tablet mg total) by mouth 8 19 every other day. losartan (COZAAR) Take 1 tablet (25 30 tablet 0 03/19/19 Active 25 MG tablet mg total) by mouth 8 19 daily. magnesium oxide Take 1 tablet (400 30 tablet 0 03/18/19 Active (MAG-OX) 400 mg mg total) by mouth 8 19 tablet daily. senna-docusate Take 1 tablet by 20 tablet 0 03/18/19 Active (SENOKOT S) 8.6-50 mouth 2 (two) times 8 19 mg per tablet daily as needed for Constipation. cholecalciferol, Take 50,000 Units 03/14/19 Discontinued vitamin D3, 50,000 by mouth daily. 18 unit capsule glimepiride Take 2 mg by mouth 03/18/19 Discontinued (AMARYL) 2 MG every morning 18 tablet before breakfast. insulin aspart Inject 03/14/19 Discontinued (NOVOLOG) 100 subcutaneously 2 18 unit/mL injection (two) times daily with breakfast and lunch. lisinopril Take 5 mg by mouth 03/18/19 Discontinued (PRINIVIL,ZESTRIL) daily. 18 5 MG tablet gabapentin Take 300 mg by 10/14/19 Discontinued (NEURONTIN) 300 MG mouth 3 (three) 17 capsule times daily. atenolol Take 25 mg by mouth 03/18/19 Discontinued (TENORMIN) 25 MG daily. 18 tablet baclofen Take 10 mg by mouth 03/18/19 Discontinued (LIORESAL) 10 MG 3 (three) times 18 tablet daily. pregabalin Take 100 mg by 03/14/19 Discontinued (LYRICA) 75 MG mouth 2 (two) times 18 capsule daily . leflunomide Take 10 mg by mouth 03/14/19 Discontinued (ARAVA) 10 MG daily. 18 tablet cilostazol Take 50 mg by mouth 03/18/19 Discontinued (PLETAL) 50 MG 2 (two) times 18 tablet daily. ibuprofen Take 800 mg by 03/18/19 Discontinued (ADVIL,MOTRIN) 800 mouth every 8 18 MG tablet (eight) hours as needed for Pain. amitriptyline Take 10 mg by mouth 03/18/19 Discontinued (ELAVIL) 10 MG nightly. 18 tablet Active Problems Problem Noted Date CKD (chronic kidney disease) stage 3, GFR 30-59 ml/min 03/18/2017 Anemia 03/15/2017 Moderate malnutrition ([facility]) 03/15/2017 Acute combined systolic and diastolic heart failure ([facility]) 03/15/2017 Moderate aortic regurgitation 03/15/2017 Pulmonary fibrosis ([facility]) 03/15/2017 Acute on chronic respiratory failure with hypoxia ([facility]) 03/14/2017 Hypothyroidism 03/14/2017 Rheumatoid arthritis involving multiple sites ([facility]) 03/14/2017 History of Thoracic aortic aneurysm without rupture ([facility]) 03/14/2017 Diabetes mellitus type 2, insulin dependent ([facility]) 09/26/2012 Essential hypertension 09/26/2012 Resolved Problems Problem Noted Date Resolved Date Hypotension 03/15/2017 03/15/2017 Shortness of breath 03/14/2017 03/14/2017 Acute CHF (congestive heart failure) ([facility]) 03/14/2017 03/15/2017 ILD (interstitial lung disease) ([facility]) 03/14/2017 03/15/2017 Intractable back pain 10/11/2016 03/14/2017 Fever postop 09/27/2012 03/14/2017 Hyperkalemia 09/26/2012 03/14/2017 Dyslipidemia 09/26/2012 03/14/2017 OA (osteoarthritis) 09/25/2012 03/14/2017 Encounters Date Type Specialty Care Team Description 03/14/2017 - Hospital Encounter Cardiology Richard Kelly Shortness of breath 03/18/2017 MD Ubaldo (Primary Maris, Fernando M., Dx);Pulmonary MD fibrosis ([facility]) 03/14/2017 Orders Only General Internal Medicine 10/11/2016 - Hospital Encounter Cardiology Elicia, 10/13/2016 MD Tucker Mojicaull, Karla Hensley MD after 05/22/2016 Family History Medical History Relation Name Comments Diabetes Brother Arthritis Daughter Cancer Mother Arthritis Sister Diabetes Sister Heart disease Sister Hypertension Sister Heart disease Son Relation Name Status Comments Brother Daughter Mother Sister Son Social History Tobacco Use Types Packs/Day Years Used Date Former Smoker Quit: 02/06/2010 Smokeless Tobacco: Never Used Alcohol Use Drinks/Week oz/Week Comments No Sex Assigned at Date Recorded Not on file Last Filed Vital Signs Vital Sign Reading Time Taken Blood Pressure 95/58 03/18/2017 12:28 PM [employer] Pulse 85 03/18/2017 12:28 PM [employer] Temperature 35.6 C (96 F) 03/18/2017 12:28 PM [employer] Respiratory Rate 18 03/18/2017 12:28 PM [employer] Oxygen Saturation 97% 03/18/2017 12:28 PM [employer] Inhaled Oxygen Concentration - - Weight 59 kg (130 lb 1.1 oz) 03/18/2017 7:48 AM [employer] Height 167.6 cm (5' 6") 03/14/2017 1:42 PM [employer] Body Mass Index 20.99 03/18/2017 7:48 AM [employer] Plan of Treatment Health Maintenance Due Date Last Done Comments INFLUENZA VACCINE 11/06/2017 Implants Implanted Type Area Acoustic Warfare Analyst Device Expiration Model / Identifier Date Serial / Lot Cement,Bone [place] Hv 40gm - [id number] Cement/Fill Right: 03/08/2014 [id number] / Implanted: Qty: 1 on 09/25/2012 by Esequiel Ruiz MD er/Adhesive Knee / [id number] Cement,[place] G Hv 40/20gm - [id number] Cement/Fill Right: 11/05/2012 [id number] / Implanted: Qty: 1 on 09/25/2012 by Esequiel Ruiz MD er/Adhesive Knee / [id number] Patella,3-Peg Arcom Thin Series A 34x7.8mm - [id number] Joints Right: 08/05 [id number] / Implanted: Qty: 1 on 09/25/2012 by Esequiel Ruiz MD Knee / [id number] Fem Comp,Vanguard Cr Interlok Right 65mm - [id number] Joints Right: 2022 [id number] / Implanted: Qty: 1 on 09/25/2012 by Esequiel Ruiz MD Knee / [id number] Vanguard (Tm) Cr [place]-Lock (Tm) Tibial Bearing 10mm*71mm Joints Right: 02/05/2017 [id number] / Implanted: Qty: 1 on 09/25/2012 by Esequiel Ruiz MD Knee / [id number] Results RHYTHM STRIP - SCAN (03/21/2017 8:00 AM)Only the most recent of3 resultswithin the time period is included.POC-Glucose meter (03/18/2017 11:30 AM)Only the most recent of25 resultswithin the time period is included. Component Value Ref Range POC-Glucose Meter 209 (H)Comment: TESTED AT [address] 70 - 110 mg/[place] [address] Specimen Performing Laboratory Blood [facility] [address] [address] CBC with platelet count + automated diff (03/17/2017 4:00 AM)Only the most recent of6 resultswithin the time period is included. Component Value Ref Range WBC 6.4 3.5 - 10.5 K/L RBC 3.54 (L) 3.93 - 5.22 M/L Hemoglobin 10.3 (L) 11.2 - 15.7 GM/DL Hematocrit 32.9 (L) 34.1 - 44.9 % MCV 92.9 79.4 - 94.8 fL MCH 29.1 25.6 - 32.2 pg MCHC 31.3 (L) 32.2 - 35.5 GM/DL RDW 17.2 (H) 11.7 - 14.4 % Platelets 131 (L) 150 - 450 K/CU MM MPV 9.8 9.4 - 12.3 fL nRBC 0 0 - 0 /100 WBC % Neutros 57 % % Lymphs 28 % % Monos 6 % % Eos 8 % % Baso 1 % # Neutros 3.63 1.56 - 6.13 K/L # Lymphs 1.77 1.18 - 3.74 K/L # Monos 0.41 (H) 0.24 - 0.36 K/L # Eos 0.48 (H) 0.04 - 0.36 K/L # Baso 0.05 0.01 - 0.08 K/L Immature Granulocytes-Relative 1 0 - 1 % Specimen Performing Laboratory Blood [address] [address] CBC with platelet count + automated diff (03/17/2017 4:00 AM)Only the most recent of6 resultswithin the time period is included. Specimen Performing Laboratory Blood Narrative The following orders were created for panel order CBC with platelet count + automated diff. Procedure Abnormality Status --------- ------ CBC with platelet count ...[[id number]]AbnormalFinal result Please view results for these tests on the individual orders. B-type Natriuretic Factor (BNP) (03/17/2017 4:00 AM)Only the most recent of4 resultswithin the time period is included. Component Value Ref Range BNP 190 (H) 0 - 100 pg/mL Specimen Performing Laboratory Blood [address] [address] Magnesium (03/17/2017 4:00 AM)Only the most recent of4 resultswithin the time period is included. Component Value Ref Range Magnesium 1.7 1.6 - 2.6 mg/dL Specimen Performing Laboratory Blood [address] [address] Basic Metabolic Panel (03/17/2017 4:00 AM)Only the most recent of6 resultswithin the time period is included. Component Value Ref Range Sodium 138 136 - 145 meq/L Potassium 4.1 3.5 - 5.1 meq/L Chloride 101 98 - 107 meq/L CO2 26 22 - 29 meq/L BUN 27 (H) 7 - 21 mg/dL Creatinine 1.20 0.57 - 1.25 mg/dL Glucose 123 (H) 70 - 105 mg/dL Calcium 8.6 8.4 - 10.2 mg/dL EGFR 43Comment: ESTIMATED GFR IS NOT ACCURATE mL/min/1.73 sq m CREATININE CLEARANCE IN PREDICTING GLOMERULAR FILTRATION RATE. ESTIMATED GFR IS NOT APPLICABLE FOR DIALYSIS PATIENTS. Specimen Performing Laboratory Blood [facility] [address] [address] NM myocardial perfusion PET (rest and stress) (03/16/2017 3:53 PM) Specimen Performing Laboratory TATI Schilling FINAL REPORT PROCEDURE: Rest/Stress MYOCARDIAL PERFUSION PET with regadenoson\\XA9\\ CPT CODE: 43396 INDICATION: Coronary evaluation in a patient with [...] FROM NONINVASIVE CARDIOLOGY: Pharmacologic stress was by 10-second iv infusion of 0.4 mg of regadenoson. Radiotracer was injected 30 seconds after start of stress. Heart rate was 86 beats/min at rest and 90 beats/min (63% of MPHR) at tracer injection. BP was 94/60 mmHg at rest and 92/54 mmHg at tracer injection. Stress was stopped for predetermined endpoint. The patient experienced no symptoms; treatment was not required. Preliminary ECG evaluation revealed sinus rhythm at rest and no ischemic changes with stress. (Final ECG interpretation and other stress and monitoring data are reported separately by Cardiology.) IMAGING FINDINGS: Study quality is good. Images obtained after rest and stress injections show normal LV activity. LV and RV volumes appear normal. Gated images obtained at rest and with stress show normal LV wall motion and thickening. LVEF at rest is 38%. LVEF at stress is 50%. Chest and upper abdomen CT scan showed a dilated and tortuous descending aorta with marked calcification. IMPRESSION: 1. Abnormal study.2. Appropriate pharmacologic stress.3. Normal myocardial perfusion.4. Moderately reduced resting LV function. No deterioration of function is noted with pharmacologic stress.5. Normal extracardiac tracer distribution. 6. No previous [facility] study for comparison.7. Descending thoracoabdominal aortic aneurysm noted. NONINVASIVE RISK STRATIFICATION: The above findings are considered intermediate risk: 1. Mild/moderate resting LV dysfunction (EF 35-49%) Signed: Jonathan Sampson MD Report Verified Date/Time:03/16/2017 16:37:45 Reading Location: [address] [address] Reading Room Procedure Note Interface, External Ris In - 03/17/2017 2:35 PM [employer] FINAL REPORT PROCEDURE: Rest/Stress MYOCARDIAL PERFUSION PET with regadenoson\\XA9\\ CPT CODE: 34531 INDICATION: Coronary evaluation in a patient with [...] FROM NONINVASIVE CARDIOLOGY: Pharmacologic stress was by 10-second iv infusion of 0.4 mg of regadenoson. Radiotracer was injected 30 seconds after start of stress. Heart rate was 86 beats/min at rest and 90 beats/min (63% of MPHR) at tracer injection. BP was 94/60 mmHg at rest and 92/54 mmHg at tracer injection. Stress was stopped for predetermined endpoint. The patient experienced no symptoms; treatment was not required. Preliminary ECG evaluation revealed sinus rhythm at rest and no ischemic changes with stress. (Final ECG interpretation and other stress and monitoring data are reported separately by Cardiology.) IMAGING FINDINGS: Study quality is good. Images obtained after rest and stress injections show normal LV activity. LV and RV volumes appear normal. Gated images obtained at rest and with stress show normal LV wall motion and thickening. LVEF at rest is 38%. LVEF at stress is 50%. Chest and upper abdomen CT scan showed a dilated and tortuous descending aorta with marked calcification. IMPRESSION: 1. Abnormal study. 2. Appropriate pharmacologic stress. 3. Normal myocardial perfusion. 4. Moderately reduced resting LV function. No deterioration of function is noted with pharmacologic stress. 5. Normal extracardiac tracer distribution. 6. No previous [facility] study for comparison. 7. Descending thoracoabdominal aortic aneurysm noted. NONINVASIVE RISK STRATIFICATION: The above findings are considered intermediate risk: 1. Mild/moderate resting LV dysfunction (EF 35-49%) Signed: Jonathan Sampson MD Report Verified Date/Time: 03/16/2017 16:37:45 Reading Location: [address] Reading Room Treadmill tolerance(Non-Nuclear Treadmill) (03/16/2017 3:49 PM) Specimen Performing Laboratory [employer] Narrative Protocol Name Regadenoson Time In Exercise Phase 00:01:00 Max. Systolic BP 92 mmHg Max Diastolic BP 54 mmHg Max Heart Rate 90 BPM Max Predicted Heart Rate 142 BPM Reason For Termination Predetermined end point Reason for Test Dyspnea Target HR Formula (220 - Age)*100% Arrhythmias ventricular premature beats Resting ECG Normal sinus rhythm ST Changes No Significant Changes Overall Impression Indeterminate due to pharmacological stress Chest Pain none HR Response To Exercise BP Response To Exercise ASA COREG LASIX LOSARTAN levothyroxine K-DUR PREVACHOL Confirmed by fellow Postalian Neil Ortega ([id number]) on 03/16/2017 4:19:12 PM Confirmed by MD MARCELO JORGE [id number]) on 03/22/2017 5:04:19 PM Procedure Note Interface, External Ris In - 03/22/2017 5:04 PM [employer] Protocol Name Regadenoson Time In Exercise Phase 00:01:00 Max. Systolic BP 92 mmHg Max Diastolic BP 54 mmHg Max Heart Rate 90 BPM Max Predicted Heart Rate 142 BPM Reason For Termination Predetermined end point Reason for Test Dyspnea Target HR Formula (220 - Age)*100% Arrhythmias ventricular premature beats Resting ECG Normal sinus rhythm ST Changes No Significant Changes Overall Impression Indeterminate due to pharmacological stress Chest Pain none HR Response To Exercise BP Response To Exercise ASA COREG LASIX LOSARTAN levothyroxine K-DUR PREVACHOL Confirmed by fellow Postalian Neil Ortega ([id number]) on 03/16/2017 4:19:12 PM Confirmed by MD MARCELO JORGE ([id number]) on 03/22/2017 5:04:19 PM Troponin I (03/15/2017 3:48 PM)Only the most recent of2 resultswithin the time period is included. Component Value Ref Range Troponin I 0.03 0.00 - 0.03 ng/mL Specimen Performing Laboratory Blood - Arm, [address] [address] Narrative Troponin I (TnI) levels must be interpreted [...] failure, acidosis, acute neurological disease, and persistent tachyarrhythmia. ECHOCARDIOGRAM REPORT - SCAN (03/15/2017 2:21 PM)Vitamin B12 and Folate (2017 1:03 PM) Component Value Ref Range Vitamin B12 722 213 - 816 pg/mL Folate 33.6 >=7.0 ng/mL Specimen Performing Laboratory [address] [address] Iron, TIBC, % sat. (without ferritin) (03/15/2017 1:03 PM) Component Value Ref Range Iron 40 40 - 160 ug/dL TIBC 265 250 - 450 ug/dL Iron % Saturation 15 (L) 20 - 55 % Specimen Performing Laboratory [address] [address] Hemoglobin and hematocrit (03/15/2017 1:03 PM) Component Value Ref Range Hemoglobin 11.0 (L) 11.2 - 15.7 GM/DL Hematocrit 34.8 34.1 - 44.9 % Specimen Performing Laboratory [address] [address] Ferritin (03/15/2017 1:03 PM) Component Value Ref Range Ferritin 103 5 - 275 ng/mL Specimen Performing Laboratory [address] [address] Transthoracic 2D echo w/ doppler (cw/pw/color) (03/15/2017 7:40 AM) Component Value Ref Range Ejection Fraction Specimen Performing Laboratory [facility]CHO [facility]ART[facility] MKCKESSON CPACS Narrative Transthoracic Echocardiography Report (TTE) Demographics Patient NameGONZALES, ISAK Date of Study03/15/2017 SHAWN Female Visit [id number] Other Room Number 1055 Number Date of 1940Referring Physician Age 76 year(s)SonographerJakob Rodriguez Interpreting [facility] Needs to be Pre PhysicianRead Ab Hall MD Procedure Type of Study TTE procedure:2DECHO W DOPPLER(CW/PW/COLOR) (NOELLE) Indications:Shortness of breath. Clinical History HGB 9.9 HCT 31.4 % CHF DM HTN PULMONARY FIBROSIS THORTACIC AORTIC ANEURYSM THYROID DISEASE Height: 66 inches Weight: 63.96 kg (141 lbs) BSA: 1.72 m^2 BMI: 22.76 kg/m^2 HR: 85 bpm BP: 106/62 mmHg Summary The left ventricle is chamber size (by PSLAX dimension) is normal (female - LVIDd 3.8-5.2cm) . Mild concentric LV hypertrophy. All of the LV segments are uarxgpna-tn-yjabuk hypokinetic . Estimated LVEF by qualitative assessment is moderately reduced (30-34%) . Signature Findings Technical Quality: Technically adequate exam. Left Ventricle The left ventricle is chamber size (by PSLAX dimension) is normal (female - LVIDd 3.8-5.2cm) . Mild concentric LV hypertrophy. Global hypokinesis of Left ventricle. All of the LV segments are lfqrjikq-ve-uirfyb hypokinetic . Estimated LVEF by qualitative assessment is moderately reduced (30-34%) . Left AtriumLA size is moderately enlarged . Right VentricleRV chamber size is moderately enlarged . Global RV systolic function is depressed . Right Atrium RA size is dilated. Aortic Valve Mild AoV cusp thickening. Mild AoV cusp calcification. Llcx-bj-hsvnhczl aortic regurgitation. Mitral Valve Mild MV leaflet thickening. Tricuspid ValveA trace of tricuspid regurgitation. Estimated peak systolic PA pressure is 25-30 mmHg . Pulmonic Valve Normal PV structure and function by limited views and Doppler. AortaAortic root size (SInus of Valsalva diameter) is normal. Dilated abdominal aorta. PericardiumNo evidence of pericardial effusion. IVC/SVC/PA/PV/PleuralThe estimated RA pressure by IVC dynamics 0-5mmHg . Chambers/Structures Left Atrium LA Dimension: 3.59 cmLA Area: 21.58 cm^2 LA Volume: 70.01 ml LA Vol. Index: 41 ml/m^2 Left Ventricle LVIDd: 4.96 cm LV Septum Diastolic: 1.15 cm LV PW Diastolic: 1.01 cm Aorta Ao Root S of Meseret.: 3.15 cm Doppler/Quantitative Measurements LVOT Peak Velocity: 0.81 m/s Peak Gradient: 2.61 mmHg Mean Velocity: 0.48 m/s Mean Gradient: 1.14 mmHg LVOT VTI: 12.28 cm Procedure Note Interface, External Ris In - 03/15/2017 1:40 PM [employer] Transthoracic Echocardiography Report (TTE) Demographics Patient Name ISAK MAR Date of Study 03/15/2017 SHAWN Gender Female Visit Number [id number] Race Other Room Number 1055 Number Date of 1940 Referring Physician Age 76 year(s) Bank Officer Jakob Rodriguez Interpreting [facility] Needs to be Pre Physician Read Ab Hall MD Procedure Type of Study TTE procedure:2DECHO W DOPPLER(CW/PW/COLOR) (NOELLE) Indications:Shortness of breath. Clinical History HGB 9.9 HCT 31.4 % CHF DM HTN PULMONARY FIBROSIS THORTACIC AORTIC ANEURYSM THYROID DISEASE Height: 66 inches Weight: 63.96 kg (141 lbs) BSA: 1.72 m^2 BMI: 22.76 kg/m^2 HR: 85 bpm BP: 106/62 mmHg Summary The left ventricle is chamber size (by PSLAX dimension) is normal (female - LVIDd 3.8-5.2cm) . Mild concentric LV hypertrophy. All of the LV segments are ghpwrifv-ty-ebadah hypokinetic . Estimated LVEF by qualitative assessment is moderately reduced (30-34%) . Signature Findings Technical Quality: Technically adequate exam. Left Ventricle The left ventricle is chamber size (by PSLAX dimension) is normal (female - LVIDd 3.8-5.2cm) . Mild concentric LV hypertrophy. Global hypokinesis of Left ventricle. All of the LV segments are xxrnxamc-bv-ikzvgp hypokinetic . Estimated LVEF by qualitative assessment is moderately reduced (30-34%) . Left Atrium LA size is moderately enlarged . Right Ventricle RV chamber size is moderately enlarged . Global RV systolic function is depressed . Right Atrium RA size is dilated. Aortic Valve Mild AoV cusp thickening. Mild AoV cusp calcification. Fsmm-dr-rkzyutmt aortic regurgitation. Mitral Valve Mild MV leaflet thickening. Tricuspid Valve A trace of tricuspid regurgitation. Estimated peak systolic PA pressure is 25-30 mmHg . Pulmonic Valve Normal PV structure and function by limited views and Doppler. Aorta Aortic root size (SInus of Valsalva diameter) is normal. Dilated abdominal aorta. Pericardium No evidence of pericardial effusion. IVC/SVC/PA/PV/Pleural The estimated RA pressure by IVC dynamics 0-5mmHg . Chambers/Structures Left Atrium LA Dimension: 3.59 cm LA Area: 21.58 cm^2 LA Volume: 70.01 ml LA Vol. Index: 41 ml/m^2 Left Ventricle LVIDd: 4.96 cm LV Septum Diastolic: 1.15 cm LV PW Diastolic: 1.01 cm Aorta Ao Root S of Meseret.: 3.15 cm Doppler/Quantitative Measurements LVOT Peak Velocity: 0.81 m/s Peak Gradient: 2.61 mmHg Mean Velocity: 0.48 m/s Mean Gradient: 1.14 mmHg LVOT VTI: 12.28 cm PERIPHERAL VASCULAR REPORT - SCAN (03/15/2017 7:20 AM)Lactic acid, venous, whole blood (03/15/2017 4:59 AM) Component Value Ref Range Lactate, Venous 0.7 0.5 - 2.2 mmol/L Specimen Performing Laboratory Blood [address] [address] Narrative Effective 06/10/2015: Units/Reference Range Change New: 0.5-2.2 mmol/LPrevious: 5-20 mg/dL TSH (03/15/2017 4:59 AM) Component Value Ref Range TSH 1.17 0.35 - 4.94 uIU/mL Specimen Performing Laboratory Blood [address] [address] Sputum Culture + Gram Stain (03/14/2017 10:13 PM) Component Value Ref Range Result Oropharyngeal contamination, specimen rejected. Recollect requested. Gram Stain Result 1+ WBCs Gram Stain Result >25 epithelial cells Gram Stain Result 1+ gram negative rods Gram Stain Result 1+ gram positive rods Gram Stain Result 4+ gram positive cocci in chains, pairs and clusters Specimen Performing Laboratory Sputum - Expectorated [address] [address] Venous doppler legs bilateral (03/14/2017 9:46 PM) Component Value Ref Range Ejection Fraction Specimen Performing Laboratory [facility]ART[facility] MKCKESSON [facility] Impressions Right Impression 1. There is no deep venous obstruction in the common femoral, profunda femoral, femoral, popliteal, posterior tibial or peroneal veins. 2. There is no superficial venous obstruction in the great saphenous vein. Left Impression 1. There is no deep venous obstruction in the common femoral, profunda femoral, femoral, popliteal, posterior tibial or peroneal veins. 2. There is no superficial venous obstruction in the great saphenous vein. Conclusions Summary Venous duplex imaging and compression of the bilateral lower extremities were performed. The veins were adequately visualized. The bilateral venous systems were patent and compressible with no evidence of thrombus. Signature Velocities are measured in cm/s ; Diameters are measured in cm Narrative [facility] - Lower Extremities DVT Study Demographics Patient NameGONZALES, BEATRIZDate of Study 03/14/2017 SHAWN Age 76 Visit [id number] Gender Female Date of 11/14 Number Referring Maris Phillips Room Number [id number] Physician Bank Officer Ru Holm InterpretingConnie Bañuelos Physician , CLAIRE Procedure Type of Study: Veins: Lower Extremities DVT Study, VENOUS DOPPLER LEG, BILATERAL. Indications for Study:Leg swelling. Patient Status:STAT. Study Location:Portable. Technical Quality:Adequate visualization. Risk Factors History of Disease + +----+ + !Diagnosis !Date!Comments ! + +----+ + !History/Risk!!DM, HTN, CHF, H/o Thoracic Aortic Aneurysm, ! !Factors:!!Pulmonary Fibrosis! + +----+ + Procedure Note Interface, External Ris In - 03/15/2017 4:45 AM [employer]CR[employer]E [employer] OPERATOR [facility] - Lower Extremities DVT Study Demographics Patient Name ISAK MAR Date of Study 03/14/2017 SHAWN Age 76 Visit Number [id number] Gender Female Date of 1940 Number Referring Maris Phillips Room Number [id number] Physician Bank Officer Ru Holm Interpreting Connie Bañuelos, Physician , [facility] Procedure Type of Study: Veins: Lower Extremities DVT Study, VENOUS DOPPLER LEG, BILATERAL. Indications for Study:Leg swelling. Patient Status:STAT. Study Location:Portable. Technical Quality:Adequate visualization. Risk Factors History of Disease + +----+ + !Diagnosis !Date!Comments ! + +----+ + !History/Risk ! !DM, HTN, CHF, H/o Thoracic Aortic Aneurysm, ! !Factors: ! !Pulmonary Fibrosis ! + +----+ + Impressions Right Impression 1. There is no deep venous obstruction in the common femoral, profunda femoral, femoral, popliteal, posterior tibial or peroneal veins. 2. There is no superficial venous obstruction in the great saphenous vein. Left Impression 1. There is no deep venous obstruction in the common femoral, profunda femoral, femoral, popliteal, posterior tibial or peroneal veins. 2. There is no superficial venous obstruction in the great saphenous vein. Conclusions Summary Venous duplex imaging and compression of the bilateral lower extremities were performed. The veins were adequately visualized. The bilateral venous systems were patent and compressible with no evidence of thrombus. Signature Velocities are measured in cm/s ; Diameters are measured in cm aPTT (03/14/2017 6:40 PM) Component Value Ref Range PTT 29.7 22.5 - 36.0 seconds Specimen Performing Laboratory Blood - Arm, [place] [address] Narrative Prior to initiating heparin CT chest for pulmonary embolus (03/14/2017 6:35 PM) Specimen Performing Laboratory [employer] Narrative FINAL REPORT PE protocol Chest CT Clinical History: Short of breath Comparison: February 2014 Technique: 413 images were submitted for interpretation.Precontrastaxial images of the chest were obtained at the pulmonary artery level for the purpose of monitoring subsequent optimal contrast enhancement of the pulmonary arteries. Post contrast axial images of the chest were obtained from the thoracic inlet to the upper abdomen at 3 mm intervals. 3-D reconstruction and multiplanar reformation of the pulmonary arteries were performed by the dictating radiologist at the [facility] workstation. This exam was performed according to our departmental dose-optimization program which includes automated exposure control, adjustment of the mA and/or kV according to patient size and/or use of iterative reconstruction technique. Report: Pulmonary circulation: There is no evidence of a filling defect or cut off sign. The distal vasculature is hard to evaluate inferiorly secondary to tortuosity Aorta: Atherosclerotic change with dilatation of the descending thoracic aorta Lungs: Fibrotic scarring at both lung apices. Emphysematous changes present with multiple peripheral blebs. Honeycomb lung is visualized inferiorly. Airways: There is no evidence of obstruction Pleura: There is no evidence of a pneumothorax or a pleural effusion Mediastinum: The thyroid is not adequately seen. The visualized esophagus is unremarkable. Heart: Prominent Pericardium: Negative Nodes: Negative Bones: Degenerative change Support lines and tubes: Negative Upper abdomen: Unremarkable Impression: Specifically there is no evidence of a pulmonary embolus. Compared to the prior study worsening emphysematous changes are noted particularly in both lung bases. Aortic aneurysmal dilatation of the descending thoracic aorta not significantly changed as compared to the prior study Signed: Julia De La Cruz MD Report Verified Date/Time:03/14/2017 18:46:13 Reading Location: [address] Consult Reading Room Procedure Note Interface, External Ris In - 03/14/2017 6:48 PM [employer]CR[employer] OPERATOR FINAL REPORT PE protocol Chest CT Clinical History: Short of breath Comparison: February 2014 Technique: 413 images were submitted for interpretation. Precontrast axial images of the chest were obtained at the pulmonary artery [...] kV according to patient size and/or use of iterative reconstruction technique. Report: Pulmonary circulation: There is no evidence of a filling defect or cut off sign. The distal vasculature is hard to evaluate inferiorly secondary to tortuosity Aorta: Atherosclerotic change with dilatation of the descending thoracic aorta Lungs: Fibrotic scarring at both lung apices. Emphysematous changes present with multiple peripheral blebs. Honeycomb lung is visualized inferiorly. Airways: There is no evidence of obstruction Pleura: There is no evidence of a pneumothorax or a pleural effusion Mediastinum: The thyroid is not adequately seen. The visualized esophagus is unremarkable. Heart: Prominent Pericardium: Negative Nodes: Negative Bones: Degenerative change Support lines and tubes: Negative Upper abdomen: Unremarkable Impression: Specifically there is no evidence of a pulmonary embolus. Compared to the prior study worsening emphysematous changes are noted particularly in both lung bases. Aortic aneurysmal dilatation of the descending thoracic aorta not significantly changed as compared to the prior study Signed: Julia De La Cruz MD Report Verified Date/Time: 03/14/2017 18:46:13 Reading Location: [facility] C013W Consult Reading Room Rapid Strep A screen (03/14/2017 5:10 PM) Component Value Ref Range Strep A Ag Negative Negative Specimen Performing Laboratory Throat [address] [address] D-dimer (03/14/2017 5:10 PM) Component Value Ref Range D-Dimer, Quant 13.42 (H) <0.50 MG/L FEU Specimen Performing Laboratory Blood - Arm, Left [address] [address] Narrative Intended Use: The D-Dimer Assay can be used to aid in the diagnosis of Deep Vein Thrombosis (DVT) and Pulmonary Embolism Disease (PED). In patients with low pre-test probability, various studies concerning STA Liatest D-dimer test have reported that with a cutoff value of 0.50 MG/L FEU, the Negative Predictive Value (NPV) regarding the exclusion of thrombosis is within 95-100% range. Urinalysis w/ Microscopic (03/14/2017 5:08 PM) Component Value Ref Range Color, UA Light Yellow Clarity, UA Clear Specific [place], UA 1.009 1.001 - 1.035 pH, UA 5.5 5.0 - 8.0 Protein, UA Negative Negative Glucose, UA 100 mg/dL (A) Negative Ketones, UA Negative Negative Bilirubin, UA Negative Negative Blood, UA Negative Negative Nitrite, UA Negative Negative Leukocytes, UA Negative Negative Urobilinogen, UA 0.2 0.2 - 1.0 mg/dL RBC, UA 1 /HPF WBC, UA 1 /HPF Squam Epithel, UA 2 /HPF Specimen Source Urine, Voided Specimen Performing Laboratory Urine - Urine, Voided [address] [address] Respiratory Panel [facility] (03/14/2017 4:12 PM) Component Value Ref Range Human Metapneumovirus Not detected Not detected, Inconclusive Rhinovirus Not detected Not detected, Inconclusive Influenza A Not detected Not detected, Inconclusive Influenza A subtype H1 Not detected Not detected, Inconclusive Influenza A Subtype H3 Not detected Not detected, Inconclusive Influenza A Subtype H1-2009 Not detected Not detected, Inconclusive Influenza B Not detected Not detected, Inconclusive Respiratory Syncytial Virus Not detected Not detected, Inconclusive Parainfluenza Virus 1 Not detected Not detected, Inconclusive Parainfluenza Virus 2 Not detected Not detected, Inconclusive Parainfluenza virus 3 Not detected Not detected, Inconclusive Parainfluenza Virus 4 Not detected Not detected, Inconclusive Adenovirus Not detected Not detected, Inconclusive Coronavirus 229E Not detected Not detected, Inconclusive Coronavirus HKU1 Not detected Not detected, Inconclusive Coronavirus NL63 Not detected Not detected, Inconclusive Coronavirus OC43 Not detected Not detected, Inconclusive Bordetella Pertussis Not detected Not detected, Inconclusive Chlamydophila Pneumoniae Not detected Not detected, Inconclusive Mycoplasma Pneumoniae Not detected Not detected, Inconclusive Specimen Performing Laboratory Nasopharyngeal - Nasal Mucosa [address] [address] Influenza antigen A & B (Rapid) (03/14/2017 4:12 PM) Component Value Ref Range Rapid Influenza A Antigen Negative Negative, Inconclusive Rapid influenza B Antigen Negative Negative, Inconclusive Specimen Performing Laboratory Nasopharyngeal - Nasal Mucosa [address] [address] XR chest 1 view portable / bedside (03/14/2017 3:10 PM) Specimen Performing Laboratory GE RIS Narrative FINAL REPORT Chest one view AP 03/14/2017 3:14 PM CLINICAL INDICATION: SHORTNESS OF BREATH COMPARISON: 02/28/2014 IMPRESSION: There are chronic appearing fibrotic changes in both lungs. Superimposed acute infectious/inflammatory process should be excluded clinically. The cardiac silhouette is enlarged, but stable. The central pulmonary vasculature is not engorged. Signed: Hai Perdomo MD Report Verified Date/Time:03/14/2017 15:14:37 Reading Location: [facility] C013W Consult Reading Room Procedure Note Interface, External Ris In - 03/14/2017 3:16 PM [employer]CR[employer] OPERATOR FINAL REPORT Chest one view AP 03/14/2017 3:14 PM CLINICAL INDICATION: SHORTNESS OF BREATH COMPARISON: 02/28/2014 IMPRESSION: There are chronic appearing fibrotic changes in both lungs. Superimposed acute infectious/inflammatory process should be excluded clinically. The cardiac silhouette is enlarged, but stable. The central pulmonary vasculature is not engorged. Signed: Hai Perdomo MD Report Verified Date/Time: 03/14/2017 15:14:37 Reading Location: [facility] B1 C013W Consult Reading Room Creatine Kinase (CK), Total and MB (03/14/2017 2:17 PM) Component Value Ref Range Total CK 32 29 - 200 U/L CK-MB 1.5 0.0 - 6.6 ng/mL MB Relative Index 4.7 % Specimen Performing Laboratory Blood - Arm, [place] [address] Narrative CK-MB Reference Range: <6.7Normal 6.7-10.0Borderline >10.0 Abnormal ECG 12 lead (03/14/2017 2:15 PM) Specimen Performing Laboratory [employer] Narrative Ventricular Rate 83 BPM Atrial Rate 83 BPM P-R Interval 174 ms QRS Duration 92 ms Q-T Interval 374 ms QTC Calculation(Bazett) 439 ms P [place] 32 degrees R [place] -36 degrees T [place] -2 degrees Normal sinus rhythm Left axis deviation Nonspecific T wave abnormality Abnormal ECG When compared with ECG of 28-FEB-2014 01:06, QRS axis has shifted leftward Nonspecific ST abnormality no longer seen Confirmed by MD HARIKA, EDITH ([id number]) on 03/15/2017 6:34:45 AM Procedure Note Interface, External Ris In - 03/15/2017 6:34 AM CONCRETE [employer] OPERATOR Ventricular Rate 83 BPM Atrial Rate 83 BPM P-R Interval 174 ms QRS Duration 92 ms Q-T Interval 374 ms QTC Calculation(Bazett) 439 ms P [place] 32 degrees R [place] -36 degrees T [place] -2 degrees Normal sinus rhythm Left axis deviation Nonspecific T wave abnormality Abnormal ECG When compared with ECG of 28-FEB-2014 01:06, QRS axis has shifted leftward Nonspecific ST abnormality no longer seen Confirmed by MD HARIKA, [email or web address] ([id number]) on 03/15/2017 6:34:45 AM Urinalysis w/Microscopic + Reflex to Culture (10/12/2016 1:58 PM) Component Value Ref Range Color, UA Yellow Clarity, UA Hazy Specific [place], UA 1.016 1.001 - 1.035 pH, UA 6.5 5.0 - 8.0 Protein, UA 50 mg/dL (A) Negative Glucose, UA 200 mg/dL (A) Negative Ketones, UA Negative Negative Bilirubin, UA Negative Negative Blood, UA Negative Negative Nitrite, UA Negative Negative Leukocytes, UA Negative Negative Urobilinogen, UA 0.2 0.2 - 1.0 mg/dL RBC, UA 0 /HPF WBC, UA <1 /HPF Mucus Rare Squam Epithel, UA 6 /HPF Hyaline Casts, UA 2 /LPF Casts 2 /LPF Specimen Source Specimen Performing Laboratory Urine - Urine, Sterile Collection [address] [address] PT/aPTT (10/12/2016 4:49 AM) Component Value Ref Range Protime 16.5 (H) 11.7 - 14.7 seconds INR 1.3 <=5.9 PTT 31.0 22.5 - 36.0 seconds Specimen Performing Laboratory Blood - Arm, Right [address] [address] Narrative RECOMMENDED COUMADIN/WARFARIN INR THERAPY RANGES STANDARD DOSE: 2.0 - 3.0 Includes: PROPHYLAXIS for venous thrombosis, systemic embolization; TREATMENT for venous thrombosis and/or pulmonary embolus. HIGH RISK: Target INR is 2.5-3.5 for patients with mechanical heart valves. Hepatic function panel (10/12/2016 4:49 AM) Component Value Ref Range Protein, Total 7.4 6.0 - 8.3 gm/dL Albumin 3.5 3.5 - 5.0 g/dL Total Bilirubin 0.4 0.2 - 1.2 mg/dL Bilirubin, Direct 0.2 0.1 - 0.5 mg/dL Alkaline Phosphatase 63 40 - 150 U/L AST 12 5 - 34 U/L ALT <6 (L) 6 - 55 U/L Specimen Performing Laboratory Blood - Arm, Right [facility] [address] [address] after 05/22/2016
--- NOTE | 2017-05-23 10:36 | RAD REPORT ---
EXAM DESCRIPTION: RAD - Chest Single View - 05/23/2017 10:24 am CLINICAL HISTORY: Cough, shortness of breath. COMPARISON: 02/13/2017, 10/11/2016 FINDINGS: Portable technique limits examination quality. Extensive pulmonary fibrosis is identified with reduced lung volumes and fibrotic interstitial patter n. Given this baseline underlying disease, excluding a subtle infiltrate in the lung bases is difficu lt, particularly the right lower lobe which is somewhat hazy. The heart is moderately enlarged with a tortuous thoracic aorta.
[2017-05-23 10:39] LABS: Absolute Lymphocytes (CBC) 0.9 K/uL (0.7-4.9); Absolute Monocytes 0.6 K/uL (0.1-1.3); Absolute Neutrophil 6.9 K/uL (1.8-8.0); Basophils % 0.8 % (0-1.3); Eosinophils % 1.8 % (0-4.4); Hematocrit 37.8 % (36.0-45.0); MCH 28.1 pg (27.0-35.0); MCV 88.1 fL (80-100); MPV 8.7 fL (7.6-11.3); Monocytes % 6.5 % (3.3-12.3); RBC Red Blood Cell Count 4.29 M/uL (3.86-4.86)
[2017-05-23 10:46] LABS: Albumin 3.2 g/dL (3.2-5.5); Bilirubin Direct 0.5 mg/dL (0-0.2); Bilirubin Total 1.4 mg/dL (0.3-1.2); CKMB Creatine Kinase MB 3.6 ng/ml (0.3-4.0); Magnesium 1.7 mg/dL (1.8-2.5); Potassium 4.4 mEq/L (3.6-5.0); Protein, Total 7.8 g/dL (6.0-8.3)
[2017-05-23 10:48] LABS: Urine Blood TRACE (NEG); Urine Glucose NEGATIVE (NEG); Urine Protein 1+ (NEG); Urine pH 5.5 (5.0-7.0)
[2017-05-23 10:53] LABS: Protime INR 1.85
[2017-05-23] MEDS ORDERED: LORazepam 2 MG/ML VIAL ONE (10:53)
[2017-05-23] MEDS ORDERED: NA CHLORIDE 0.9% 1,000 ML ONE (11:01)
[2017-05-23] MEDS ORDERED: CLINDAMYCIN 600MG/D5W 600 MG/50 ML BAG IV ONE (11:01)
[2017-05-23 11:04] LABS: Urine Bacteria <20 /HPF (<20); Urine RBC <5 /HPF (NONE SEEN)
[2017-05-23 11:05] LABS: Urine Amorphous Sediment 1+ /HPF (NONE SEEN); Urine Culture Reflex Order NOT NEEDED
--- NOTE | 2017-05-23 12:50 | EDPHYS ---
Physician Documentation [facility] Name: Olga Turner Age: 76 yrs Sex: Female : 1940 Arrival Date: 05/23/2017 Time: 09:21 Bed 8 Private MD: ED Physician Marc Mace HPI: 05/23 10:28 This 76 yrs old Female presents to ER via Wheelchair with complaints of snw Abdominal Pain, Weakness, Fever. 10:28 The patient presents with abdominal pain in the left upper quadrant, abdominal snw distention. Onset: The symptoms/episode began/occurred suddenly, 4 day(s) ago, and became worse last night, and became persistent. The symptoms do not radiate. Associated signs and symptoms: Pertinent positives: nausea, vomiting, abdominal pain. The symptoms are described as constant. Severity of pain: At its worst the pain was moderate severe. The patient has experienced similar episodes in the past, chronically. pt withdrew hospice today for admission to hospital for probable pneumonia. hx of pulmonary fibrosis. Historical: - Allergies: 09:56 PENICILLINS; iw - Home Meds: 10:01 levofloxacin 500 mg Oral tab 1 tab once daily [Active]; levothyroxine oral 20 mcg once iw daily [Active]; benzonatate 200 mg oral cap [Active]; folic acid 1 mg Oral tab 1 tab once daily [Active]; leflunomide 20 mg oral tab 1 tab once daily [Active]; Lyrica 100 mg Oral 2 times per day [Active]; hydromorphone 2 mg Oral tab 1 tab every 4-6 hours [Active]; aspirin 81 mg Oral TbEC 1 tab once daily [Active]; potassium chloride 20 mEq Oral TbER 1 tab once daily [Active]; alprazolam 0.25 mg Oral tab every 6 hours [Active]; - PMHx: 09:56 AAA; Arthritis; CHF; Diabetes - NIDDM; Hypertension; Hypothyroidism; pulmonary fibrosis;iw - Immunization history:: Adult Immunizations up to date. - Social history:: Smoking status: Patient/guardian denies using tobacco. ROS: 10:25 Eyes: Negative for injury, pain, redness, and discharge, ENT: Negative for injury, snw pain, and discharge, Neck: Negative for injury, pain, and swelling, Cardiovascular: Negative for chest pain, palpitations, and edema. 10:25 Back: Negative for injury and pain, : Negative for injury, bleeding, discharge, and swelling, MS/Extremity: Negative for injury and deformity, Skin: Negative for injury, rash, and discoloration, Neuro: Negative for headache, weakness, numbness, tingling, and seizure. 10:25 Constitutional: Positive for fatigue, malaise, poor PO intake. 10:25 Respiratory: Positive for cough, orthopnea, wheezing. 10:25 Abdomen/GI: Positive for abdominal pain, vomiting. Exam: 10:20 Head/Face: Normocephalic, atraumatic. Eyes: Pupils equal round and reactive to light, snw extra-ocular motions intact. Lids and lashes normal. Conjunctiva and sclera are non-icteric and not injected. Cornea within normal limits. Periorbital areas with no swelling, redness, or edema. 10:20 ENT: Nares patent. No nasal discharge, no septal abnormalities noted. Tympanic membranes are normal and external auditory canals are clear. Oropharynx with no redness, swelling, or masses, exudates, or evidence of obstruction, uvula midline. Mucous membranes moist. Neck: Trachea midline, no thyromegaly or masses palpated, and no cervical lymphadenopathy. Supple, full range of motion without nuchal rigidity, or vertebral point tenderness. No Meningismus. Chest/axilla: Normal chest wall appearance and motion. Nontender with no deformity. No lesions are appreciated. Cardiovascular: Regular rate and rhythm with a normal S1 and S2. No gallops, murmurs, or rubs. Normal PMI, no JVD. No pulse deficits. 10:20 Back: No spinal tenderness. No costovertebral tenderness. Full range of motion. 10:20 Neuro: Awake and alert, GCS 15, oriented to person, place, time, and situation. Cranial nerves II-XII grossly intact. Motor strength 5/5 in all extremities. Sensory grossly intact. Cerebellar exam normal. Normal gait. 10:20 Cardiovascular: Regular rate and rhythm with a normal S1 and S2. No gallops, murmurs, or rubs. Normal PMI, no JVD. No pulse deficits. anasarca 10:20 Constitutional: The patient appears awake, frail. 10:20 Respiratory: mild respiratory distress is noted, Respirations: shallow respirations, Breath sounds: decreased breath sounds, are located in both bases. 10:20 Abdomen/GI: Inspection: distension, that is mild, Bowel sounds: hyperactive, in all quadrants, Palpation: moderate abdominal tenderness, severe abdominal tenderness, in the left upper quadrant. 10:20 Skin: Appearance: Color: jaundiced, pale. Vital Signs: 09:57 BP 121 / 82; Pulse 89; Resp 20 S; Temp 97.2(TE); Pulse Ox 98% on 3 lpm NC; Weight 64.86 iw kg; Height 5 ft. 6 in. (167.64 cm); Pain 8/10; 11:00 BP 111 / 085; Pulse 86; Resp 19; Pulse Ox 99% on 2 lpm NC; sv 11:45 BP 95 / 65; Pulse 80; Resp 13; Pulse Ox 98% on 2 lpm NC; sv 13:17 BP 106 / 79; Pulse 85; Resp 18; Pulse Ox 99% ; sv 09:57 Body Mass Index 23.08 (64.86 kg, 167.64 cm) iw MDM: 09:58 Patient medically screened. snw 11:20 Data reviewed: vital signs, nurses notes. Data interpreted: Pulse oximetry: on room air snw is 98 %. Interpretation: normal. Counseling: I had a detailed discussion with the patient and/or guardian regarding: the historical points, exam findings, and any diagnostic results supporting the discharge/admit diagnosis, lab results, radiology results, the need for outpatient follow up. Physician consultation: Kimmy Barton MD. 05/23 09:50 Order name: Basic Metabolic Panel; Complete Time: 10:50 snw 05/23 09:50 Order name: BNP snw 05/23 09:50 Order name: CBC with Diff; Complete Time: 10:50 snw 05/23 09:50 Order name: Ckmb; Complete Time: 10:50 snw 05/23 09:50 Order name: CPK; Complete Time: 10:50 snw 05/23 09:50 Order name: LFT's; Complete Time: 10:50 snw 05/23 09:50 Order name: Magnesium; Complete Time: 10:50 snw 05/23 09:50 Order name: PT-INR; Complete Time: 11:00 snw 05/23 09:50 Order name: Ptt, Activated; Complete Time: 11:00 snw 05/23 09:50 Order name: Troponin (emerg Dept Use Only); Complete Time: 10:45 w 05/23 09:50 Order name: Blood Culture Adult (2) 05/23 09:50 Order name: Urine Culture w 05/23 09:50 Order name: Urine Microscopic Only; Complete Time: 11:05 w 05/23 10:38 Order name: Urine Dipstick--Ancillary (enter results); Complete Time: 10:50 5 05/23 09:50 Order name: XRAY Chest (1 view); Complete Time: 10:37 w 05/23 09:50 Order name: EKG; Complete Time: 09:51 snw 05/23 09:50 Order name: Cardiac monitoring; Complete Time: 10:47 05/23 09:50 Order name: EKG - Nurse/Tech; Complete Time: 10:14 05/23 09:50 Order name: IV Saline Lock; Complete Time: 10:14 w 05/23 09:50 Order name: Labs collected and sent; Complete Time: 10:14 05/23 09:50 Order name: O2 Per Protocol; Complete Time: 10:14 05/23 09:50 Order name: O2 Sat Monitoring; Complete Time: 10:14 w 05/23 09:50 Order name: Cath; Complete Time: 10:46 snw Administered Medications: 10:56 Drug: Ativan 1 mg Route: IVP; Site: right antecubital; ph 11:12 Follow up: Response: No adverse reaction; Marked relief of symptoms sv 11:06 CANCELLED (other intervention used): Clindamycin 600 mg IVPB once over 30 mins; (mix in snw 50 mL) 11:06 CANCELLED (other intervention used): LevaQUIN 500 mg PO once snw 11:08 CANCELLED (Duplicate Order): LevaQUIN 500 mg 100 ml IVPB once over 60 mins snw 11:12 Drug: NS 0.9% 1000 ml Route: IV; Rate: 75 ml/hr; Site: right antecubital; sv 13:19 Follow up: Response: No adverse reaction; IV Status: Order to discontinue infusion sv 11:12 Drug: Clindamycin 600 mg Route: IVPB; Infused Over: 30 mins; Site: right antecubital; sv 11:45 Follow up: Response: No adverse reaction; IV Status: Completed infusion; IV Intake: sv 100ml 11:12 CANCELLED (Duplicate Order): Clindamycin 600 mg IVPB once over 30 mins; (mix in 50 mL) sv Disposition: 18:08 Co-signature as Attending Physician, Marc Mace MD Available for consultation at ps1 all times. . Disposition: 05/23/17 12:49 Discharged to Home. Impression: Pulmonary fibrosis, unspecified, Unspecified combined systolic (congestive) and diastolic (congestive) heart failure. - Condition is Stable. - Discharge Instructions: Heart Failure, Hospice. - Medication Reconciliation Form, Thank You Letter, Antibiotic Education, Prescription Opioid Use form. - Follow up: Private Physician; When: Today; Reason: Recheck today's complaints, Continuance of care. Signatures: Dispatcher [employer] Brooklynn William RN RN Kelly William, REFUSE DRIVER-C REFUSE DRIVER-Csnw Mona Beavers RN RN Dorinda Tyler RN RN Marc Mace MD MD ps1 Corrections: (The following items were deleted from the chart) 11:06 10:39 Clindamycin 600 mg IVPB once over 30 mins; (mix in 50 mL) ordered. snw snw 11:06 11:06 LevaQUIN 500 mg PO once ordered. snw snw 11:08 11:07 LevaQUIN 500 mg 100 ml IVPB once over 60 mins ordered. snw snw 11:12 11:11 Clindamycin 600 mg IVPB once over 30 mins; (mix in 50 mL) ordered. sv sv
--- NOTE | 2017-05-23 12:50 | ER ---
Nurse's Notes [facility] Name: Olga Turner Age: 76 yrs Sex: Female : 1940 Arrival Date: 05/23/2017 Time: 09:21 Bed 8 Private MD: Diagnosis: Pulmonary fibrosis, unspecified;Unspecified combined systolic (congestive) and diastolic (congestive) heart failure Presentation: 05/23 09:54 Presenting complaint: Child states: pt has had bad cough since Monday, has been SOB, iw weak, fever yesterday, left sided abd pain, pt was on hospice for pulmonary fibrosis but was taken off so she could bring her to ER. Pt was put on Levofloxacin yesterday for URI. Transition of care: patient was not received from another setting of care. Onset of symptoms was May 20, 2017. Care prior to arrival: None. 09:54 Method Of Arrival: Wheelchair iw 09:54 Acuity: EMEKA 3 iw Historical: - Allergies: 09:56 PENICILLINS; iw - Home Meds: 10:01 levofloxacin 500 mg Oral tab 1 tab once daily [Active]; levothyroxine oral 20 mcg once iw daily [Active]; benzonatate 200 mg oral cap [Active]; folic acid 1 mg Oral tab 1 tab once daily [Active]; leflunomide 20 mg oral tab 1 tab once daily [Active]; Lyrica 100 mg Oral 2 times per day [Active]; hydromorphone 2 mg Oral tab 1 tab every 4-6 hours [Active]; aspirin 81 mg Oral TbEC 1 tab once daily [Active]; potassium chloride 20 mEq Oral TbER 1 tab once daily [Active]; alprazolam 0.25 mg Oral tab every 6 hours [Active]; - PMHx: 09:56 AAA; Arthritis; CHF; Diabetes - NIDDM; Hypertension; Hypothyroidism; pulmonary fibrosis;iw - Immunization history:: Adult Immunizations up to date. - Social history:: Smoking status: Patient/guardian denies using tobacco. Screenin:11 Abuse screen: Denies threats or abuse. Denies injuries from another. Nutritional sv screening: No deficits noted. Tuberculosis screening: No symptoms or risk factors identified. Fall Risk None identified. Assessment: 09:50 General: Appears in no apparent distress. uncomfortable, slender, Behavior is calm, sv cooperative, appropriate for age. General: Reports fever, fatigue. Pain: Complains of pain in left upper quadrant Pain currently is 3 out of 10 on a pain scale. Neuro: Level of Consciousness is awake, alert, obeys commands, Oriented to person, place, time, situation, Moves all extremities. Reports weakness. Cardiovascular: Patient's skin is warm and dry. Pulses are 2+ in right radial artery and left radial artery. Respiratory: Respiratory effort is even, unlabored, Respiratory pattern is regular, symmetrical. GI: Abdomen is flat, Abd is soft X 4 quads Abdomen is tender to palpation in left upper quadrant. Derm: Skin is pale. 10:50 Reassessment: Patient appears in no apparent distress at this time. No changes from previously documented assessment. Patient and/or family updated on plan of care and expected duration. Pain level reassessed. Patient is alert, oriented x 3, equal unlabored respirations, skin warm/dry/pink. 11:12 Reassessment: Patient appears in no apparent distress at this time. Patient and/or sv family updated on plan of care and expected duration. Pain level reassessed. Patient is alert, oriented x 3, equal unlabored respirations, skin warm/dry/pink. Patient states symptoms have improved. 13:00 Reassessment: Daughter not at the bedside to be able to discharge pt. sv 13:17 Reassessment: Patient appears in no apparent distress at this time. Patient and/or sv family updated on plan of care and expected duration. Pain level reassessed. Patient is alert, oriented x 3, equal unlabored respirations, skin warm/dry/pink. Vital Signs: 09:57 BP 121 / 82; Pulse 89; Resp 20 S; Temp 97.2(TE); Pulse Ox 98% on 3 lpm NC; Weight 64.86 iw kg; Height 5 ft. 6 in. (167.64 cm); Pain 8/10; 11:00 BP 111 / 085; Pulse 86; Resp 19; Pulse Ox 99% on 2 lpm NC; sv 11:45 BP 95 / 65; Pulse 80; Resp 13; Pulse Ox 98% on 2 lpm NC; sv 13:17 BP 106 / 79; Pulse 85; Resp 18; Pulse Ox 99% ; sv 09:57 Body Mass Index 23.08 (64.86 kg, 167.64 cm) ED Course: 09:21 Patient arrived in ED. as 09:45 Kelly William FNP-C is [facility]. snw 09:45 Marc Mace MD is Attending Physician. snw 09:50 Brooklynn Wilkinson, RN is Primary Nurse. sv 09:50 Patient has correct armband on for positive identification. Placed in gown. Bed in low sv position. Call light in reach. Side rails up X2. Adult w/ patient. Pulse ox on. NIBP on. Door closed. Head of bed elevated. 09:50 Initial lab(s) drawn, by me, sent to lab. First set of blood cultures drawn by me. sv Inserted saline lock: 20 gauge in right antecubital area, using aseptic technique. Blood collected. Flushed right antecubital with 5 ml normal saline. 09:55 Triage completed. iw 09:57 Arm band placed on. iw 10:05 Second set of blood cultures drawn by me. sv 10:14 X-ray(s) taken. sv 10:16 X-ray completed. Portable x-ray completed in exam room. jr1 10:18 XRAY Chest (1 view) In Process Unspecified. EDMS 10:18 EKG done, by rad tech. reviewed by Kelly RUSSELL. at1 10:46 Urine Microscopic Only Sent. ag 10:46 Urine Culture Sent. ag 10:46 Straight cath inserted, using sterile technique, 16 Fr. Specimen obtained. ag 13:17 No provider procedures requiring assistance completed. IV discontinued, intact, sv bleeding controlled, No redness/swelling at site. Pressure dressing applied. Administered Medications: 10:56 Drug: Ativan 1 mg Route: IVP; Site: right antecubital; ph 11:12 Follow up: Response: No adverse reaction; Marked relief of symptoms sv 11:06 CANCELLED (other intervention used): Clindamycin 600 mg IVPB once over 30 mins; (mix in snw 50 mL) 11:06 CANCELLED (other intervention used): LevaQUIN 500 mg PO once snw 11:08 CANCELLED (Duplicate Order): LevaQUIN 500 mg 100 ml IVPB once over 60 mins snw 11:12 Drug: NS 0.9% 1000 ml Route: IV; Rate: 75 ml/hr; Site: right antecubital; sv 13:19 Follow up: Response: No adverse reaction; IV Status: Order to discontinue infusion sv 11:12 Drug: Clindamycin 600 mg Route: IVPB; Infused Over: 30 mins; Site: right antecubital; sv 11:45 Follow up: Response: No adverse reaction; IV Status: Completed infusion; IV Intake: sv 100ml 11:12 CANCELLED (Duplicate Order): Clindamycin 600 mg IVPB once over 30 mins; (mix in 50 mL) sv Intake: 11:45 IV: 100ml; Total: 100ml. sv Outcome: 12:49 Discharge ordered by . snw 13:18 Discharged to home via wheelchair, with family. sv 13:18 Condition: stable 13:18 Discharge instructions given to family, Instructed on discharge instructions, follow up and referral plans. Demonstrated understanding of instructions, follow-up care. 13:20 Patient left the ED. sv Signatures: Dispatcher [employer] Brooklynn William RN RN sv Kelly William, PERSONAL LINES SALES EXECUTIVE-C PERSONAL LINES SALES EXECUTIVE-Csnw Nellie Lazo jr1 Charlotte Quiroga Irene, RN RN iw Mickie nova, blending line attendant EKG Tat1 Nicole Collins Patricia, RN RN ph Corrections: (The following items were deleted from the chart) 09:57 09:54 Presenting complaint: Child states: pt has had bad cough since Monday, has been iw SOB, weak, fever yesterday, left sided abd pain, pt was on hospice for pulmonary fibrosis but was taken off so she could bring her to ER iw 09:58 09:57 BP 121 / 82; Pulse 89bpm; Resp 20bpm; Spontaneous; Pulse Ox 97% RA; Temp 97.2F iw Temporal; 64.86 kg; Height 5 ft. 6 in.; BMI: 23.0; Pain 8/10; iw
[2017-05-23 13:25] VITALS: TEMP 97.2
[2017-05-23 13:29] VITALS: BP 106/79; O2SAT 99
--- NOTE | 2017-05-23 16:30 | EKG ---
Test Date: 2017-05-23 Test Time: 10:07:52 Speech Language Pathologist: BUDDY MEASUREMENT RESULTS: Intervals: Rate: 88 LA: 156 QRSD: 96 QT: 394 QTc: 476 [place]: P: 52 LA: 156 QRS: -26 T: 30 INTERPRETIVE STATEMENTS: Sinus rhythm with premature supraventricular complexes Otherwise normal ECG Compared to ECG 02/12/2017 14:52:41 Atrial premature complex(es) now present Ventricular premature complex(es) no longer present T-wave abnormality no longer present Prolonged QT interval no longer present Electronically Signed On 05-23-17 16:29:35 CDT by Diaz Hernandez
== END 2017-05-23 13:20 | disposition home or self-care (01) ==
LOC: ER 09:20
DX: J84.10 Pulmonary fibrosis, unspecified (principal); I50.40 Unspecified combined systolic (congestive) and diastolic (congestive) heart failure; I10 Essential (primary) hypertension; E03.9 Hypothyroidism, unspecified; E11.9 Type 2 diabetes mellitus without complications; Z79.82 Long term (current) use of aspirin; Z88.0 Allergy status to penicillin
CPT/HCPCS: 36415; 51702; 71045; 80048; 80076; 82550; 82553; 83735; 83880; 84484; 85025; 85610; 85730; 87040 ×2; 87086; 87088; 93005; 96361; 96365; 96375; 99284; J7030; 81003; 81015

== ENCOUNTER 2017-07-04 13:37 | Inpatient (IN) | payer OTHER ==
--- OUTSIDE RECORDS SUMMARY | 2017-07-04 13:39 | XMS REPORT | Clinical Summary ---
:1940 Author Organization [facility] Address [address] [place] [address] Phone Care Team Providers Name Role Phone [...] 30-59 ml/min 03/18/2017 Anemia 03/15/2017 Moderate malnutrition ([facility]) 03/15/2017 Acute combined systolic and diastolic heart failure ([facility]) 03/15/2017 Moderate aortic regurgitation 03/15/2017 Pulmonary fibrosis ([facility]) 03/15/2017 Acute on chronic respiratory failure with hypoxia ([facility]) 03/14/2017 Hypothyroidism 03/14/2017 Rheumatoid arthritis involving multiple sites ([facility]) 03/14/2017 History of Thoracic aortic aneurysm without rupture ([facility]) 03/14/2017 Diabetes mellitus type 2, insulin dependent ([facility]) 09/26/2012 Essential hypertension 09/26/2012 Resolved Problems Problem Noted Date Resolved Date Hypotension 03/15/2017 03/15/2017 Shortness of breath 03/14/2017 03/14/2017 Acute CHF (congestive heart failure) ([facility]) 03/14/2017 03/15/2017 ILD (interstitial lung disease) ([facility]) 03/14/2017 03/15/2017 Intractable back pain 10/11/2016 03/14/2017 Fever postop 09/27/2012 03/14/2017 Hyperkalemia 09/26/2012 03/14/2017 Dyslipidemia 09/26/2012 03/14/2017 OA (osteoarthritis) 09/25/2012 03/14/2017 Encounters Date Type Specialty Care Team Description 03/14/2017 - Hospital Encounter Cardiology Richard Kelly Shortness of breath 03/18/2017 MD Ubaldo (Primary Maris, Fernando M., Dx);Pulmonary MD fibrosis ([facility]) 03/14/2017 Orders Only General Internal Medicine 10/11/2016 - Hospital Encounter Cardiology Elicia, 10/13/2016 Iman Laboy MD [facility], Karla Hensley MD after 07/03/2016 Family History Medical History Relation Name Comments [...] Taken Blood Pressure 95/58 03/18/2017 12:28 PM VARITYPE OPERATOR Pulse 85 03/18/2017 12:28 PM VARITYPE OPERATOR Temperature 35.6 C (96 F) 03/18/2017 12:28 PM VARITYPE OPERATOR Respiratory Rate 18 03/18/2017 12:28 PM VARITYPE OPERATOR Oxygen Saturation 97% 03/18/2017 12:28 PM VARITYPE OPERATOR Inhaled Oxygen Concentration - - Weight 59 kg (130 lb 1.1 oz) 03/18/2017 7:48 AM VARITYPE OPERATOR Height 167.6 cm (5' 6") 03/14/2017 1:42 PM VARITYPE OPERATOR Body Mass Index 20.99 03/18/2017 7:48 AM VARITYPE OPERATOR Plan of Treatment Health Maintenance Due Date Last Done Comments INFLUENZA VACCINE 11/06/2017 Implants Implanted Type Area Model And Mold Maker Device Expiration Model / Identifier Date Serial / Lot Cement,Bone [place] Hv 40gm - [id number] Cement/Fill Right: 03/08/2014 [id number] / Implanted: Qty: 1 on 09/25/2012 by Esequiel Ruiz MD er/Adhesive Knee / [id number] Cement,[place] G Hv 40/20gm - [id number] Cement/Fill Right: 11/05/2012 [id number] / Implanted: Qty: 1 on 09/25/2012 by Esequiel Ruiz MD er/Adhesive Knee / [id number] Patella,3-Peg Arcom Thin Series A 34x7.8mm - [id number] Joints Right: 08/05 [id number] / Implanted: Qty: 1 on 09/25/2012 by Esequiel Ruiz MD Knee / [id number] Fem Comp,Vanguard Cr Interlok Right 65mm - [id number] Joints Right: 2022 [id number] / Implanted: Qty: 1 on 09/25/2012 by Esequiel Ruiz MD Knee / [id number] Vanguard (Tm) Cr Traverse-Lock (Tm) Tibial Bearing 10mm*71mm Joints Right: 02/05/2017 [id number] / Implanted: Qty: 1 on 09/25/2012 by Esequiel Ruiz MD Knee / [id number] Results RHYTHM STRIP - SCAN (03/21/2017 8:00 AM)Only the most recent of3 resultswithin the time period is included.POC-Glucose meter (03/18/2017 11:30 AM)Only the most recent of25 resultswithin the time period is included. Component Value Ref Range POC-Glucose Meter 209 (H)Comment: TESTED AT [address] 70 - 110 mg/[place] [address] Specimen Performing Laboratory Blood [facility] [address] [address] CBC with platelet count + automated diff [...] - 1 % Specimen Performing Laboratory Blood [address] [address] CBC with platelet count + automated diff (03/17/2017 4:00 AM)Only the most recent of6 resultswithin the time period is included. Specimen Performing Laboratory Blood Narrative The following orders were created for panel order CBC with platelet count + automated diff. Procedure Abnormality Status --------- ------ CBC with platelet count ...[[id number]]AbnormalFinal result Please view results for these tests on the individual orders. B-type Natriuretic Factor (BNP) (03/17/2017 4:00 AM)Only the most recent of4 resultswithin the time period is included. Component Value Ref Range BNP 190 (H) 0 - 100 pg/mL Specimen Performing Laboratory Blood [address] [address] Magnesium (03/17/2017 4:00 AM)Only the most recent of4 resultswithin the time period is included. Component Value Ref Range Magnesium 1.7 1.6 - 2.6 mg/dL Specimen Performing Laboratory Blood [address] [address] Basic Metabolic Panel (03/17/2017 4:00 AM)Only the [...] DIALYSIS PATIENTS. Specimen Performing Laboratory Blood [facility] [address] [address] NM myocardial perfusion PET (rest and stress) (03/16/2017 3:53 PM) Specimen Performing Laboratory TATI Schilling FINAL REPORT PROCEDURE: Rest/Stress MYOCARDIAL PERFUSION PET with regadenoson\\XA9\\ CPT CODE: 63216 INDICATION: Coronary evaluation in a patient with [...] Normal extracardiac tracer distribution. 6. No previous [facility] study for comparison.7. Descending thoracoabdominal aortic aneurysm noted. NONINVASIVE RISK STRATIFICATION: The above findings are considered intermediate risk: 1. Mild/moderate resting LV dysfunction (EF 35-49%) Signed: Jonathan Sampson MD Report Verified Date/Time:03/16/2017 16:37:45 Reading Location: [address] Reading Room Procedure Note Interface, External Ris In - 03/17/2017 2:35 PM VARITYPE OPERATOR FINAL REPORT PROCEDURE: Rest/Stress MYOCARDIAL PERFUSION PET with regadenoson\\XA9\\ CPT CODE: [id number] INDICATION: Coronary evaluation in a patient with [...] Normal extracardiac tracer distribution. 6. No previous [facility] study for comparison. 7. Descending thoracoabdominal aortic aneurysm noted. NONINVASIVE RISK STRATIFICATION: The above findings are considered intermediate risk: 1. Mild/moderate resting LV dysfunction (EF 35-49%) Signed: Jonathan Sampson MD Report Verified Date/Time: 03/16/2017 16:37:45 Reading Location: [address] Reading Room Treadmill tolerance(Non-Nuclear Treadmill) (03/16/2017 3:49 PM) Specimen Performing Laboratory [employer] Narrative Protocol Name Regadenoson Time In Exercise [...] PREVACHOL Confirmed by fellow Postalian Neil Ortega ([id number]) on 03/16/2017 4:19:12 PM Confirmed by MD MARCELO JORGE ([id number]) on 03/22/2017 5:04:19 PM Procedure Note Interface, External Ris In - 03/22/2017 5:04 PM VARITYPE OPERATOR Protocol Name Regadenoson Time In Exercise [...] PREVACHOL Confirmed by fellow Postalian Neil Ortega ([id number]) on 03/16/2017 4:19:12 PM Confirmed by MD MARCELO JORGE ([id number]) on 03/22/2017 5:04:19 PM Troponin I (03/15/2017 3:48 PM)Only the most recent of2 resultswithin the time period is included. Component Value Ref Range Troponin I 0.03 0.00 - 0.03 ng/mL Specimen Performing Laboratory Blood - Arm, [address] [address] Narrative Troponin I (TnI) levels must be [...] Folate 33.6 >=7.0 ng/mL Specimen Performing Laboratory [address] [address] Iron, TIBC, % sat. (without ferritin) (03/15/2017 1:03 PM) Component Value Ref Range Iron 40 40 - 160 ug/dL TIBC 265 250 - 450 ug/dL Iron % Saturation 15 (L) 20 - 55 % Specimen Performing Laboratory [address] [address] Hemoglobin and hematocrit (03/15/2017 1:03 PM) Component Value Ref Range Hemoglobin 11.0 (L) 11.2 - 15.7 GM/DL Hematocrit 34.8 34.1 - 44.9 % Specimen Performing Laboratory [address] [address] Ferritin (03/15/2017 1:03 PM) Component Value Ref Range Ferritin 103 5 - 275 ng/mL Specimen Performing Laboratory [address] [address] Transthoracic 2D echo w/ doppler (cw/pw/color) (03/15/2017 7:40 AM) Component Value Ref Range Ejection Fraction Specimen Performing Laboratory [facility] MKCKESSON CPACS Narrative Transthoracic Echocardiography Report (TTE) Demographics Patient NameGONISAK REYNOLDS Date of Study03/15/2017 SHAWN Female Visit [id number] Other Room Number 1055 Number Date of 1940Referring Physician Age 76 year(s)SonographerJakob Rodriguez Interpreting [facility] Needs to be Pre PhysicianRead [...] hypertrophy. All of the LV segments are avatbpkr-ai-fvawve hypokinetic . Estimated LVEF by qualitative assessment is moderately reduced (30-34%) . Signature Findings Technical Quality: Technically adequate exam. Left Ventricle The left ventricle is chamber size (by PSLAX dimension) is normal (female - LVIDd 3.8-5.2cm) . Mild concentric LV hypertrophy. Global hypokinesis of Left ventricle. All of the LV segments are qwvflkpn-li-beodie hypokinetic . Estimated LVEF by qualitative assessment is moderately reduced (30-34%) . Left AtriumLA size is moderately enlarged . Right VentricleRV chamber size is moderately enlarged . Global RV systolic function is depressed . Right Atrium RA size is dilated. Aortic Valve Mild AoV cusp thickening. Mild AoV cusp calcification. Odpn-xv-kdaxzzmz aortic regurgitation. Mitral Valve Mild MV leaflet [...] External Ris In - 03/15/2017 1:40 PM VARITYPE OPERATOR Transthoracic Echocardiography Report (TTE) Demographics Patient Name ISAK MAR Date of Study 03/15/2017 SHAWN Gender Female Visit Number [id number] Race Other Room Number 1055 Number Date of 1940 Referring Physician Age 76 year(s) Fire Management Technician Jakob Rodriguez Interpreting [facility] Needs to be Pre Physician [...] hypertrophy. All of the LV segments are odtcdxlp-gq-hnriso hypokinetic . Estimated LVEF by qualitative assessment is moderately reduced (30-34%) . Signature Findings Technical Quality: Technically adequate exam. Left Ventricle The left ventricle is chamber size (by PSLAX dimension) is normal (female - LVIDd 3.8-5.2cm) . Mild concentric LV hypertrophy. Global hypokinesis of Left ventricle. All of the LV segments are hhybukhg-wf-vwhxvd hypokinetic . Estimated LVEF by qualitative assessment is moderately reduced (30-34%) . Left Atrium LA size is moderately enlarged . Right Ventricle RV chamber size is moderately enlarged . Global RV systolic function is depressed . Right Atrium RA size is dilated. Aortic Valve Mild AoV cusp thickening. Mild AoV cusp calcification. Dolk-vk-ojvoiltt aortic regurgitation. Mitral Valve Mild MV leaflet [...] - 2.2 mmol/L Specimen Performing Laboratory Blood [address] [address] Narrative Effective 06/10/2015: Units/Reference Range Change New: 0.5-2.2 mmol/LPrevious: 5-20 mg/dL TSH (03/15/2017 4:59 AM) Component Value Ref Range TSH 1.17 0.35 - 4.94 uIU/mL Specimen Performing Laboratory Blood [address] [address] Sputum Culture + Gram Stain (03/14/2017 10:13 PM) Component Value Ref Range Result Oropharyngeal contamination, specimen rejected. Recollect requested. Gram Stain Result 1+ WBCs Gram Stain Result >25 epithelial cells Gram Stain Result 1+ gram negative rods Gram Stain Result 1+ gram positive rods Gram Stain Result 4+ gram positive cocci in chains, pairs and clusters Specimen Performing Laboratory Sputum - Expectorated [address] [address] Venous doppler legs bilateral (03/14/2017 9:46 PM) Component Value Ref Range Ejection Fraction Specimen Performing Laboratory [facility] MKCKESSON CPACS Impressions Right Impression 1. There is no [...] - Lower Extremities DVT Study Demographics Patient NameGONISAK REYNOLDSDate of Study 03/14/2017 SHAWN Age 76 Visit [id number] Gender Female Date of 11/14 Number Referring Maris Phillips Room Number 1055 Physician Fire Management Technician Ru Holm InterpretingConnie Bañuelos, Physician , CLAIRE Procedure Type of Study: [...] External Ris In - 03/15/2017 4:45 AM VARITYPE OPERATOR PV LAB - Lower Extremities DVT Study Demographics Patient Name ISAK MAR Date of Study 03/14/2017 SHAWN Age 76 Visit Number [id number] Gender Female Date of 1940 Number Referring Maris Phillips Room Number 1055 Physician Fire Management Technician Ru Holm Interpreting Connie Bañuelos, Physician , RPVI Procedure Type of Study: Veins: Lower Extremities [...] seconds Specimen Performing Laboratory Blood - Arm, [place] [address] Narrative Prior to initiating heparin CT chest for pulmonary embolus (03/14/2017 6:35 PM) Specimen Performing Laboratory [employer] Narrative FINAL REPORT PE protocol Chest CT [...] MD Report Verified Date/Time:03/14/2017 18:46:13 Reading Location: [address] Consult Reading Room Procedure Note Interface, External Ris In - 03/14/2017 6:48 PM VARITYPE OPERATOR FINAL REPORT PE protocol Chest CT [...] Report Verified Date/Time: 03/14/2017 18:46:13 Reading Location: [facility] B1 C013W Consult Reading Room Rapid Strep A screen (03/14/2017 5:10 PM) Component Value Ref Range Strep A Ag Negative Negative Specimen Performing Laboratory Throat [address] [address] D-dimer (03/14/2017 5:10 PM) Component Value Ref Range D-Dimer, Quant 13.42 (H) <0.50 MG/L FEU Specimen Performing Laboratory Blood - Arm, Left [address] [address] Narrative Intended Use: The D-Dimer Assay can [...] UA Light Yellow Clarity, UA Clear Specific [place], UA 1.009 1.001 - 1.035 pH, UA [...] Specimen Performing Laboratory Urine - Urine, Voided [address] [address] Respiratory Panel [facility] (03/14/2017 4:12 PM) Component Value [...] Specimen Performing Laboratory Nasopharyngeal - Nasal Mucosa [address] [address] Influenza antigen A & B (Rapid) (03/14/2017 4:12 PM) Component Value Ref Range Rapid Influenza A Antigen Negative Negative, Inconclusive Rapid influenza B Antigen Negative Negative, Inconclusive Specimen Performing Laboratory Nasopharyngeal - Nasal Mucosa [address] [address] XR chest 1 view portable / bedside [...] MD Report Verified Date/Time:03/14/2017 15:14:37 Reading Location: [facility] B1 C013W Consult Reading Room Procedure Note Interface, External Ris In - 03/14/2017 3:16 PM VARITYPE OPERATOR FINAL REPORT Chest one view AP 03/14/2017 3:14 PM CLINICAL INDICATION: SHORTNESS OF BREATH COMPARISON: 02/28/2014 IMPRESSION: There are chronic appearing fibrotic changes in both lungs. Superimposed acute infectious/inflammatory process should be excluded clinically. The cardiac silhouette is enlarged, but stable. The central pulmonary vasculature is not engorged. Signed: Hai Perdomo MD Report Verified Date/Time: 03/14/2017 15:14:37 Reading Location: [facility] B1 C013W Consult Reading Room Creatine Kinase (CK), Total and MB (03/14/2017 2:17 PM) Component Value Ref Range Total CK 32 29 - 200 U/L CK-MB 1.5 0.0 - 6.6 ng/mL MB Relative Index 4.7 % Specimen Performing Laboratory Blood - Arm, [place] [address] Narrative CK-MB Reference Range: <6.7Normal 6.7-10.0Borderline >10.0 Abnormal ECG 12 lead (03/14/2017 2:15 PM) Specimen Performing Laboratory [facility] Narrative Ventricular Rate 83 BPM Atrial Rate 83 BPM P-R Interval 174 ms QRS Duration 92 ms Q-T Interval 374 ms QTC Calculation(Bazett) 439 ms P [place] 32 degrees R [place] -36 degrees T [place] -2 degrees Normal sinus rhythm Left axis deviation Nonspecific T wave abnormality Abnormal ECG When compared with ECG of 28-FEB-2014 01:06, QRS axis has shifted leftward Nonspecific ST abnormality no longer seen Confirmed by MD HARIKA, EDITH ([id number]) on 03/15/2017 6:34:45 AM Procedure Note Interface, External Ris In - 03/15/2017 6:34 AM VARITYPE OPERATOR Ventricular Rate 83 BPM Atrial Rate 83 BPM P-R Interval 174 ms QRS Duration 92 ms Q-T Interval 374 ms QTC Calculation(Bazett) 439 ms P [place] 32 degrees R [place] -36 degrees T [place] -2 degrees Normal sinus rhythm Left axis deviation Nonspecific T wave abnormality Abnormal ECG When compared with ECG of 28-FEB-2014 01:06, QRS axis has shifted leftward Nonspecific ST abnormality no longer seen Confirmed by MD HARIKA, EDITH ([id number]) on 03/15/2017 6:34:45 AM Urinalysis w/Microscopic + Reflex to Culture (10/12/2016 1:58 PM) Component Value Ref Range Color, UA Yellow Clarity, UA Hazy Specific [place], UA 1.016 1.001 - 1.035 pH, UA [...] Performing Laboratory Urine - Urine, Sterile Collection [address] [address] PT/aPTT (10/12/2016 4:49 AM) Component Value Ref Range Protime 16.5 (H) 11.7 - 14.7 seconds INR 1.3 <=5.9 PTT 31.0 22.5 - 36.0 seconds Specimen Performing Laboratory Blood - Arm, Right [address] [address] Narrative RECOMMENDED COUMADIN/WARFARIN INR THERAPY RANGES STANDARD [...] Specimen Performing Laboratory Blood - Arm, Right [address] [address] after 07/03/2016
--- OUTSIDE RECORDS SUMMARY | 2017-07-04 13:40 | XMS REPORT ---
:1940 Author Organization [facility] Address [address] [place] [address] [address] [place] [address] Care Team Providers Name Role Phone TRINA CHRISTIANSON Unavailable Unavailable MARY DONAHUE Unavailable Unavailable Problems This patient has no known problems. Allergies, Adverse Reactions, Alerts This patient has no known allergies or adverse reactions. Medications This patient has no known medications. Results Test Description Test Time Test Comments Text Results Atomic Results Result Comments POCT-GLUCOSE METER 2017-03-18 11:50:00 Test Item Value Reference Range Comments POC-GLUCOSE METER (BEAKER) (test 209 mg/dL 70-110 TESTED AT [address] rjsa=1115) [place] [id number] POCT-GLUCOSE [id number] 07:46:00 Test Item Value Reference Range Comments POC-GLUCOSE METER (BEAKER) 108 mg/dL 70-110 TESTED AT [address] (test fkxf=4559) [place] [id number] POCT-GLUCOSE [id number] 20:55:00 Test Item Value Reference Range Comments POC-GLUCOSE METER (BEAKER) 265 mg/dL 70-110 TESTED AT [address] (test odov=9459) [place] [address] POCT-GLUCOSE [id number] 17:40:00 Test Item Value Reference Range Comments POC-GLUCOSE METER (BEAKER) 166 mg/dL 70-110 TESTED AT [address] (test wstp=5460) [place] [address] B-TYPE NATRIURETIC FACTOR (BNP)2017-03-17 16:20:00 Test Item Value Reference Range Comments B-TYPE NATRIURETIC PEPTIDE (BEAKER) (test 190 pg/mL 0-100 wcdm=376) POCT-GLUCOSE [id number] 11:54:00 Test Item Value Reference Range Comments POC-GLUCOSE METER (BEAKER) 161 mg/dL 70-110 TESTED AT [address] (test xpzs=4011) [facility] [address] POCT-GLUCOSE [id number] 07:56:00 Test Item Value Reference Range Comments POC-GLUCOSE METER (BEAKER) 110 mg/dL 70-110 TESTED AT [facility] [address] (test fqrl=1661) [facility] [address] [id number] 05:36:00 Test Item Value Reference Range Comments MAGNESIUM (BEAKER) (test hnpb=718) 1.7 mg/dL 1.6-2.6 BASIC METABOLIC [id number] 05:36:00 Test Item Value Reference Range Comments SODIUM (BEAKER) (test 138 meq/L 136-145 xohs=333) POTASSIUM (BEAKER) (test 4.1 meq/L 3.5-5.1 rexp=788) CHLORIDE (BEAKER) (test 101 meq/L 98-107 aslw=726) CO2 (BEAKER) (test 26 meq/L 22-29 anmp=528) BLOOD UREA NITROGEN 27 mg/dL 7-21 (BEAKER) (test rjmk=242) CREATININE (BEAKER) (test 1.20 mg/dL 0.57-1.25 omcd=815) GLUCOSE RANDOM (BEAKER) 123 mg/dL 70-105 (test bbxl=036) CALCIUM (BEAKER) (test 8.6 mg/dL 8.4-10.2 wavl=176) EGFR (BEAKER) (test 43 mL/min/1.73 sq m ESTIMATED GFR IS NOT uuxm=7275) ACCURATE CREATININE CLEARANCE IN PREDICTING GLOMERULAR FILTRATION RATE. ESTIMATED GFR IS NOT APPLICABLE FOR DIALYSIS PATIENTS. CBC W/PLT COUNT & AUTO [id number] 04:29:00 Test Item Value Reference Range Comments WHITE BLOOD CELL COUNT (BEAKER) (test nmbk=806) 6.4 K/ L 3.5-10.5 RED BLOOD CELL COUNT (BEAKER) (test axed=608) 3.54 M/ L 3.93-5.22 HEMOGLOBIN (BEAKER) (test knxw=931) 10.3 GM/DL 11.2-15.7 HEMATOCRIT (BEAKER) (test niyc=914) 32.9 % 34.1-44.9 MEAN CORPUSCULAR VOLUME (BEAKER) (test xcju=671) 92.9 fL 79.4-94.8 MEAN CORPUSCULAR HEMOGLOBIN (BEAKER) (test 29.1 pg 25.6-32.2 vvxr=354) MEAN CORPUSCULAR HEMOGLOBIN CONC (BEAKER) (test 31.3 GM/DL 32.2-35.5 yuue=488) RED CELL DISTRIBUTION WIDTH (BEAKER) (test 17.2 % 11.7-14.4 sggn=619) PLATELET COUNT (BEAKER) (test dgwx=338) 131 K/CU MM 150-450 MEAN PLATELET VOLUME (BEAKER) (test wkni=124) 9.8 fL 9.4-12.3 NUCLEATED RED BLOOD CELLS (BEAKER) (test 0 /100 WBC 0-0 shdb=823) NEUTROPHILS RELATIVE PERCENT (BEAKER) (test 57 % itok=726) LYMPHOCYTES RELATIVE PERCENT (BEAKER) (test 28 % slmp=502) MONOCYTES RELATIVE PERCENT (BEAKER) (test 6 % kfbd=968) EOSINOPHILS RELATIVE PERCENT (BEAKER) (test 8 % pfuz=984) BASOPHILS RELATIVE PERCENT (BEAKER) (test 1 % gpzt=830) NEUTROPHILS ABSOLUTE COUNT (BEAKER) (test 3.63 K/ L 1.56-6.13 kzyr=834) LYMPHOCYTES ABSOLUTE COUNT (BEAKER) (test 1.77 K/ L 1.18-3.74 vnho=678) MONOCYTES ABSOLUTE COUNT (BEAKER) (test 0.41 K/ L 0.24-0.36 rdun=698) EOSINOPHILS ABSOLUTE COUNT (BEAKER) (test 0.48 K/ L 0.04-0.36 qsrs=922) BASOPHILS ABSOLUTE COUNT (BEAKER) (test 0.05 K/ L 0.01-0.08 ldcz=982) IMMATURE GRANULOCYTES-RELATIVE PERCENT (BEAKER) 1 % 0-1 (test rlan=6328) POCT-GLUCOSE [id number] 21:13:00 Test Item Value Reference Range Comments POC-GLUCOSE METER (BEAKER) 254 mg/dL 70-110 TESTED AT [address] (test rdpo=1728) [place] [address] POCT-GLUCOSE [id number] 16:43:00 Test Item Value Reference Range Comments POC-GLUCOSE METER (BEAKER) 169 mg/dL 70-110 TESTED AT [address] (test tgku=5936) [place] [address] PET, CARDIAC PERFUSION MULTIPLE STUDIES, REST AND [id number] 16:37: 00Reason for exam:->new CHFFINAL REPORT PROCEDURE: Rest/Stress MYOCARDIAL PERFUSION PET with regadenoson\XA9\ CPT CODE: 25123 INDICATION: Coronary evaluation in a patient with [...] 5. Normal extracardiac tracer distribution. [facility]. [facility]. 7. Descending thoracoabdominal aortic aneurysm noted. NONINVASIVE RISK STRATIFICATION: The above findings are considered intermediate risk: 1. Mild/moderate resting LV dysfunction (EF 35-49%) Signed: Jean Paul Sampsonort Verified Date/Time: 03/16/2017 16:37:45 Reading Location: [place] [id number] Reading Room Electronically signed by: JEAN PAUL SAMPSON M.D.on 09/2017 04:37 PMPOCT-GLUCOSE [id number] 11:42:00 Test Item Value Reference Range Comments POC-GLUCOSE METER (BEAKER) 182 mg/dL 70-110 TESTED AT [address] (test mggv=0566) [place] [address] SPUTUM CULTURE + GRAM [id number] 11:31:00 Test Item Value Reference Range Comments CULTURE (BEAKER) (test Oropharyngeal contamination, qaqa=9509) specimen rejected. Recollect requested. GRAM STAIN RESULT (BEAKER) 1+ WBCs (test zlqs=7234) GRAM STAIN RESULT (BEAKER) >25 epithelial cells (test vclj=63222) GRAM STAIN RESULT (BEAKER) 1+ gram negative rods (test yuva=95520) GRAM STAIN RESULT (BEAKER) 1+ gram positive rods (test flot=242981) GRAM STAIN RESULT (BEAKER) 4+ gram positive cocci in chains, (test fxsh=623233) pairs and clusters POCT-GLUCOSE [id number] 06:57:00 Test Item Value Reference Range Comments POC-GLUCOSE METER (BEAKER) 138 mg/dL 70-110 TESTED AT [address] (test dwxv=9085) [place] [address] [id number] 05:52:00 Test Item Value Reference Range Comments MAGNESIUM (BEAKER) (test zqxp=627) 1.7 mg/dL 1.6-2.6 BASIC METABOLIC [id number] 05:52:00 Test Item Value Reference Range Comments SODIUM (BEAKER) (test 140 meq/L 136-145 bgws=237) POTASSIUM (BEAKER) (test 3.6 meq/L 3.5-5.1 yebn=413) CHLORIDE (BEAKER) (test 103 meq/L 98-107 nlaq=206) CO2 (BEAKER) (test 28 meq/L 22-29 khzi=069) BLOOD UREA NITROGEN 26 mg/dL 7-21 (BEAKER) (test enrp=406) CREATININE (BEAKER) (test 1.04 mg/dL 0.57-1.25 pqbs=981) GLUCOSE RANDOM (BEAKER) 166 mg/dL 70-105 (test rjaa=620) CALCIUM (BEAKER) (test 8.6 mg/dL 8.4-10.2 hwog=554) EGFR (BEAKER) (test 51 mL/min/1.73 sq m ESTIMATED GFR IS NOT kypt=1674) ACCURATE CREATININE CLEARANCE IN PREDICTING GLOMERULAR FILTRATION RATE. ESTIMATED GFR IS NOT APPLICABLE FOR DIALYSIS PATIENTS. B-TYPE NATRIURETIC FACTOR (BNP)2017-03-16 05:34:00 Test Item Value Reference Range Comments B-TYPE NATRIURETIC PEPTIDE (BEAKER) (test 230 pg/mL 0-100 walk=854) CBC W/PLT COUNT & AUTO [id number] 05:10:00 Test Item Value Reference Range Comments WHITE BLOOD CELL COUNT (BEAKER) (test lvuz=846) 6.7 K/ L 3.5-10.5 RED BLOOD CELL COUNT (BEAKER) (test ommi=772) 3.36 M/ L 3.93-5.22 HEMOGLOBIN (BEAKER) (test mnwp=161) 9.7 GM/DL 11.2-15.7 HEMATOCRIT (BEAKER) (test hqnf=101) 30.9 % 34.1-44.9 MEAN CORPUSCULAR VOLUME (BEAKER) (test qrnn=466) 92.0 fL 79.4-94.8 MEAN CORPUSCULAR HEMOGLOBIN (BEAKER) (test 28.9 pg 25.6-32.2 mpzc=999) MEAN CORPUSCULAR HEMOGLOBIN CONC (BEAKER) (test 31.4 GM/DL 32.2-35.5 jzne=441) RED CELL DISTRIBUTION WIDTH (BEAKER) (test 17.1 % 11.7-14.4 ftzu=354) PLATELET COUNT (BEAKER) (test uzey=452) 126 K/CU MM 150-450 MEAN PLATELET VOLUME (BEAKER) (test ppxd=331) 10.1 fL 9.4-12.3 NUCLEATED RED BLOOD CELLS (BEAKER) (test 0 /100 WBC 0-0 gnmn=701) NEUTROPHILS RELATIVE PERCENT (BEAKER) (test 60 % tial=948) LYMPHOCYTES RELATIVE PERCENT (BEAKER) (test 24 % pfdf=708) MONOCYTES RELATIVE PERCENT (BEAKER) (test 7 % mede=976) EOSINOPHILS RELATIVE PERCENT (BEAKER) (test 7 % enej=458) BASOPHILS RELATIVE PERCENT (BEAKER) (test 1 % cczm=279) NEUTROPHILS ABSOLUTE COUNT (BEAKER) (test 4.03 K/ L 1.56-6.13 zivx=572) LYMPHOCYTES ABSOLUTE COUNT (BEAKER) (test 1.63 K/ L 1.18-3.74 xhjy=678) MONOCYTES ABSOLUTE COUNT (BEAKER) (test 0.49 K/ L 0.24-0.36 wduq=156) EOSINOPHILS ABSOLUTE COUNT (BEAKER) (test 0.47 K/ L 0.04-0.36 xabo=056) BASOPHILS ABSOLUTE COUNT (BEAKER) (test 0.06 K/ L 0.01-0.08 ppka=094) IMMATURE GRANULOCYTES-RELATIVE PERCENT (BEAKER) 0 % 0-1 (test xvfv=2462) POCT-GLUCOSE [id number] 22:48:00 Test Item Value Reference Range Comments POC-GLUCOSE METER (BEAKER) 311 mg/dL 70-110 Notified ANGELIKA MONTENEGRO/TESTED AT [facility] (test gsor=2151) [address] [place] [address] POCT-GLUCOSE [id number] 21:25:00 Test Item Value Reference Range Comments POC-GLUCOSE METER (BEAKER) 386 mg/dL 70-110 Notified ANGELIKA MONTENEGRO/TESTED AT [facility] (test fncb=6243) [address] [place] [address] VITAMIN B12 AND [id number] 17:27:00 Test Item Value Reference Range Comments VITAMIN B12 (BEAKER) (test nquq=993) 722 pg/mL 213-816 FOLATE (BEAKER) (test dsjy=049) 33.6 ng/mL >=7.0 POCT-GLUCOSE [id number] 16:43:00 Test Item Value Reference Range Comments POC-GLUCOSE METER (BEAKER) 283 mg/dL 70-110 TESTED AT [address] (test nrux=5439) [facility] [address] TROPONIN [id number] 16:26:00 Test Item Value Reference Range Comments TROPONIN I (BEAKER) (test mcrs=997) 0.03 ng/mL 0.00-0.03 Troponin I (TnI) levels [...] failure, acidosis, acute neurological disease, and persistent tachyarrhythmia.[id number] 14:58:00 Test Item Value Reference Range Comments FERRITIN (BEAKER) (test slxy=208) 103 ng/mL 5-275 IRON, TIBC, % SAT. (WITHOUT FERRITIN)2017-03-15 14:04:00 Test Item Value Reference Range Comments IRON (BEAKER) (test agvv=471) 40 ug/dL 40-160 TOTAL IRON BINDING CAPACITY (BEAKER) (test 265 ug/dL 250-450 dyqt=339) IRON % SATURATION (2) (BEAKER) (test tvzk=0035) 15 % 20-55 HEMOGLOBIN AND [id number] 13:23:00 Test Item Value Reference Range Comments HEMOGLOBIN (BEAKER) (test comg=154) 11.0 GM/DL 11.2-15.7 HEMATOCRIT (BEAKER) (test gsii=976) 34.8 % 34.1-44.9 RESPIRATORY PANEL [id number] 11:18:00 Test Item Value Reference Range Comments HUMAN METAPNEUMOVIRUS (BEAKER) (test Not detected Not detected, Inconclusive soxc=5775) RHINOVIRUS (BEAKER) (test fdql=0251) Not detected Not detected, Inconclusive INFLUENZA A (BEAKER) (test Not detected Not detected, Inconclusive ncqz=2737) INFLUENZA A SUBTYPE H1 (BEAKER) Not detected Not detected, Inconclusive (test eioi=4874) INFLUENZA A SUBTYPE H3 (BEAKER) Not detected Not detected, Inconclusive (test gucc=9621) INFLUENZA A SUBTYPE H1-2009 (BEAKER) Not detected Not detected, Inconclusive (test ohsy=8473) INFLUENZA B (BEAKER) (test Not detected Not detected, Inconclusive mlcp=5692) RESPIRATORY SYNCYTIAL VIRUS (BEAKER) Not detected Not detected, Inconclusive (test yeoc=2243) PARAINFLUENZA VIRUS 1 (BEAKER) (test Not detected Not detected, Inconclusive cktj=2833) PARAINFLUENZA VIRUS 2 (BEAKER) (test Not detected Not detected, Inconclusive pzsw=5923) PARAINFLUENZA VIRUS 3 (BEAKER) (test Not detected Not detected, Inconclusive kfsn=7905) PARAINFLUENZA VIRUS 4 (BEAKER) (test Not detected Not detected, Inconclusive gktl=6304) ADENOVIRUS (BEAKER) (test cjfm=4789) Not detected Not detected, Inconclusive CORONAVIRUS 229E (BEAKER) (test Not detected Not detected, Inconclusive ibzp=5619) CORONAVIRUS HKU1 (BEAKER) (test Not detected Not detected, Inconclusive lhrq=1672) CORONAVIRUS NL63 (BEAKER) (test Not detected Not detected, Inconclusive clit=0440) CORONAVIRUS OC43 (BEAKER) (test Not detected Not detected, Inconclusive plel=3230) BORDETELLA PERTUSSIS (BEAKER) (test Not detected Not detected, Inconclusive qydu=6675) CHLAMYDOPHILA PNEUMONIAE (BEAKER) Not detected Not detected, Inconclusive (test haxh=9651) MYCOPLASMA PNEUMONIAE (BEAKER) (test Not detected Not detected, Inconclusive gzyu=5345) POCT-GLUCOSE [id number] 11:10:00 Test Item Value Reference Range Comments POC-GLUCOSE METER (BEAKER) 251 mg/dL 70-110 TESTED AT [address] (test icvo=7050) [place] [address] POCT-GLUCOSE [id number] 07:47:00 Test Item Value Reference Range Comments POC-GLUCOSE METER (BEAKER) 92 mg/dL 70-110 TESTED AT [address] (test myoq=0378) [place] [address] [id number] 05:58:00 Test Item Value Reference Range Comments THYROID STIMULATING HORMONE (BEAKER) (test 1.17 uIU/mL 0.35-4.94 rfhe=396) [id number] 05:42:00 Test Item Value Reference Range Comments MAGNESIUM (BEAKER) (test cbaw=307) 1.5 mg/dL 1.6-2.6 BASIC METABOLIC [id number] 05:42:00 Test Item Value Reference Range Comments SODIUM (BEAKER) (test 141 meq/L 136-145 kxmh=526) POTASSIUM (BEAKER) (test 3.6 meq/L 3.5-5.1 lary=144) CHLORIDE (BEAKER) (test 102 meq/L 98-107 ebpq=460) CO2 (BEAKER) (test 28 meq/L 22-29 dutb=304) BLOOD UREA NITROGEN 22 mg/dL 7-21 (BEAKER) (test pnvu=789) CREATININE (BEAKER) (test 0.92 mg/dL 0.57-1.25 qxia=683) GLUCOSE RANDOM (BEAKER) 92 mg/dL 70-105 (test gdrm=479) CALCIUM (BEAKER) (test 8.7 mg/dL 8.4-10.2 zads=217) EGFR (BEAKER) (test 59 mL/min/1.73 sq m ESTIMATED GFR IS NOT rviq=1657) ACCURATE CREATININE CLEARANCE IN PREDICTING GLOMERULAR FILTRATION RATE. ESTIMATED GFR IS NOT APPLICABLE FOR DIALYSIS PATIENTS. B-TYPE NATRIURETIC FACTOR (BNP)2017-03-15 05:38:00 Test Item Value Reference Range Comments B-TYPE NATRIURETIC PEPTIDE (BEAKER) (test 1095 pg/mL 0-100 sxlb=899) LACTIC ACID, VENOUS, WHOLE [id number] 05:36:00 Test Item Value Reference Range Comments LACTATE BLOOD VENOUS (2) (BEAKER) (test 0.7 mmol/L 0.5-2.2 zadn=5065) Effective 06/10/2015: Units/Reference Range ChangeNew: 0.5-2.2 mmol/L Previous: 5 -20 mg/dLCBC W/PLT COUNT & AUTO [id number] 05:24:00 Test Item Value Reference Range Comments WHITE BLOOD CELL COUNT (BEAKER) (test vyex=626) 8.1 K/ L 3.5-10.5 RED BLOOD CELL COUNT (BEAKER) (test qolj=809) 3.47 M/ L 3.93-5.22 HEMOGLOBIN (BEAKER) (test kdph=533) 9.9 GM/DL 11.2-15.7 HEMATOCRIT (BEAKER) (test zbod=710) 31.4 % 34.1-44.9 MEAN CORPUSCULAR VOLUME (BEAKER) (test vmdx=579) 90.5 fL 79.4-94.8 MEAN CORPUSCULAR HEMOGLOBIN (BEAKER) (test 28.5 pg 25.6-32.2 msoe=564) MEAN CORPUSCULAR HEMOGLOBIN CONC (BEAKER) (test 31.5 GM/DL 32.2-35.5 vgzo=951) RED CELL DISTRIBUTION WIDTH (BEAKER) (test 17.1 % 11.7-14.4 uizf=713) PLATELET COUNT (BEAKER) (test wicf=978) 136 K/CU MM 150-450 MEAN PLATELET VOLUME (BEAKER) (test exvl=396) 10.3 fL 9.4-12.3 NUCLEATED RED BLOOD CELLS (BEAKER) (test 0 /100 WBC 0-0 fexw=001) NEUTROPHILS RELATIVE PERCENT (BEAKER) (test 60 % evwg=023) LYMPHOCYTES RELATIVE PERCENT (BEAKER) (test 24 % fedp=715) MONOCYTES RELATIVE PERCENT (BEAKER) (test 8 % johd=599) EOSINOPHILS RELATIVE PERCENT (BEAKER) (test 7 % ozdy=423) BASOPHILS RELATIVE PERCENT (BEAKER) (test 1 % cugb=346) NEUTROPHILS ABSOLUTE COUNT (BEAKER) (test 4.86 K/ L 1.56-6.13 fwqs=677) LYMPHOCYTES ABSOLUTE COUNT (BEAKER) (test 1.92 K/ L 1.18-3.74 xidd=475) MONOCYTES ABSOLUTE COUNT (BEAKER) (test 0.63 K/ L 0.24-0.36 zeye=423) EOSINOPHILS ABSOLUTE COUNT (BEAKER) (test 0.56 K/ L 0.04-0.36 yfhi=952) BASOPHILS ABSOLUTE COUNT (BEAKER) (test 0.06 K/ L 0.01-0.08 xseo=905) IMMATURE GRANULOCYTES-RELATIVE PERCENT (BEAKER) 0 % 0-1 (test eopr=4495) POCT-GLUCOSE [id number] 00:10:00 Test Item Value Reference Range Comments POC-GLUCOSE METER (BEAKER) 252 mg/dL 70-110 TESTED AT [address] (test lbvx=8578) [facility] [address] POCT-GLUCOSE [id number] 21:11:00 Test Item Value Reference Range Comments POC-GLUCOSE METER (BEAKER) 411 mg/dL 70-110 Will Repeat Test/TESTED AT (test rcvj=8687) [address] [address] [id number] 19:22:00 Test Item Value Reference Range Comments PARTIAL THROMBOPLASTIN TIME (BEAKER) (test 29.7 seconds 22.5-36.0 xmrq=704) Prior to initiating heparinURINALYSIS W/ [id number] 19:16:00 Test Item Value Reference Range Comments COLOR (BEAKER) (test mceb=621) Light Yellow CLARITY (BEAKER) (test uvah=802) Clear SPECIFIC GRAVITY UA (BEAKER) (test qbot=513) 1.009 1.001-1.035 PH UA (BEAKER) (test fcin=192) 5.5 5.0-8.0 PROTEIN UA (BEAKER) (test zsdp=356) Negative Negative GLUCOSE UA (BEAKER) (test fgoh=529) 100 mg/dL Negative KETONES UA (BEAKER) (test koys=586) Negative Negative BILIRUBIN UA (BEAKER) (test japn=272) Negative Negative BLOOD UA (BEAKER) (test tivq=665) Negative Negative NITRITE UA (BEAKER) (test ecrm=077) Negative Negative LEUKOCYTE ESTERASE UA (BEAKER) (test upvg=735) Negative Negative UROBILINOGEN UA (BEAKER) (test vbbr=929) 0.2 mg/dL 0.2-1.0 RBC UA (BEAKER) (test bazm=916) 1 /HPF WBC UA (BEAKER) (test ljvc=115) 1 /HPF SQUAMOUS EPITHELIAL (BEAKER) (test sfuv=683) 2 /HPF SOURCE(BEAKER) (test cvzh=0495) Urine, Voided RAPID STREP A [id number] 19:01:00 Test Item Value Reference Range Comments STREP A ANTIGEN (BEAKER) (test frru=741) Negative Negative CT, CHEST WITH IV CONTRAST- PE TEST [id number] 18:46:00Reason for exam:-& gt;SHORTNESS OF BREATHover the [...] prior study Signed : Juany De La Cruzeport Verified Date/Time: 03/14/2017 18:46:13 Reading Location : [address] Consult Reading Room -[id number] 17:53:00 Test Item Value Reference Range Comments D-DIMER QUANTITATIVE (BEAKER) (test jwxd=080) 13.42 MG/L FEU <0.50 Intended Use: The [...] thrombosis is within 95-100% range.RAPID INFLUENZA A&B [id number] 17:01:00 Test Item Value Reference Range Comments RAPID INFLUENZA A AG (BEAKER) (test Negative Negative, Inconclusive kqsw=3823) RAPID INFLUENZA B AG (BEAKER) (test Negative Negative, Inconclusive dhst=4745) RAD, CHEST, 1 VIEW, NON [id number] 15:14:00Reason for exam:->SHORTNESS OF BREATHover the last [...] Garcia Verified Date/Time: 03/14/2017 15:14:37 Reading Location: [address] Consult Reading Room CREATINE KINASE (CK), TOTAL AND [id number] 14:52:00 Test Item Value Reference Range Comments CREATINE KINASE TOTAL (BEAKER) (test yxnl=964) 32 U/L 29-200 CREATINE KINASE-MB (BEAKER) (test kdsx=424) 1.5 ng/mL 0.0-6.6 CREATINE KINASE-MB INDEX (BEAKER) (test jmib=032) 4.7 % CK-MB Reference Range:<6.7 Normal6.7-10.0 Borderline>10.0 AbnormalTROPONIN [id number] 14:52:00 Test Item Value Reference Range Comments TROPONIN I (BEAKER) (test ttvq=666) 0.03 ng/mL 0.00-0.03 Troponin I (TnI) levels [...] NATRIURETIC PEPTIDE (BEAKER) (test 1761 pg/mL 0-100 zmrv=657) [id number] 14:45:00 Test Item Value Reference Range Comments MAGNESIUM (BEAKER) (test 2.0 mg/dL 1.6-2.6 Specimen slightly hemolyzed ihtd=803) BASIC METABOLIC [id number] 14:45:00 Test Item Value Reference Range Comments SODIUM (BEAKER) (test 136 meq/L 136-145 ogtz=620) POTASSIUM (BEAKER) (test 4.2 meq/L 3.5-5.1 Specimen slightly tuub=581) hemolyzed CHLORIDE (BEAKER) (test 104 meq/L 98-107 pgcm=521) CO2 (BEAKER) (test 26 meq/L 22-29 xwow=919) BLOOD UREA NITROGEN 24 mg/dL 7-21 (BEAKER) (test rkdi=157) CREATININE (BEAKER) (test 1.06 mg/dL 0.57-1.25 Specimen slightly alkq=403) hemolyzed GLUCOSE RANDOM (BEAKER) 243 mg/dL 70-105 (test nokt=245) CALCIUM (BEAKER) (test 8.5 mg/dL 8.4-10.2 zpka=734) EGFR (BEAKER) (test 50 mL/min/1.73 sq m ESTIMATED GFR IS NOT sscm=5188) ACCURATE CREATININE CLEARANCE IN PREDICTING GLOMERULAR FILTRATION RATE. ESTIMATED GFR IS NOT APPLICABLE FOR DIALYSIS PATIENTS. CBC W/PLT COUNT & AUTO [id number] 14:29:00 Test Item Value Reference Range Comments WHITE BLOOD CELL COUNT (BEAKER) (test mbyn=150) 9.8 K/ L 3.5-10.5 RED BLOOD CELL COUNT (BEAKER) (test eorl=980) 3.75 M/ L 3.93-5.22 HEMOGLOBIN (BEAKER) (test reap=754) 10.9 GM/DL 11.2-15.7 HEMATOCRIT (BEAKER) (test gtco=394) 35.3 % 34.1-44.9 MEAN CORPUSCULAR VOLUME (BEAKER) (test uncx=298) 94.1 fL 79.4-94.8 MEAN CORPUSCULAR HEMOGLOBIN (BEAKER) (test 29.1 pg 25.6-32.2 khrk=066) MEAN CORPUSCULAR HEMOGLOBIN CONC (BEAKER) (test 30.9 GM/DL 32.2-35.5 kzfk=151) RED CELL DISTRIBUTION WIDTH (BEAKER) (test 17.4 % 11.7-14.4 lfzm=710) PLATELET COUNT (BEAKER) (test ymgy=505) 131 K/CU MM 150-450 MEAN PLATELET VOLUME (BEAKER) (test euhc=410) 10.3 fL 9.4-12.3 NUCLEATED RED BLOOD CELLS (BEAKER) (test 0 /100 WBC 0-0 uzdr=729) NEUTROPHILS RELATIVE PERCENT (BEAKER) (test 62 % twbg=678) LYMPHOCYTES RELATIVE PERCENT (BEAKER) (test 23 % doex=961) MONOCYTES RELATIVE PERCENT (BEAKER) (test 7 % wxzr=417) EOSINOPHILS RELATIVE PERCENT (BEAKER) (test 7 % myxh=172) BASOPHILS RELATIVE PERCENT (BEAKER) (test 1 % dthw=119) NEUTROPHILS ABSOLUTE COUNT (BEAKER) (test 6.08 K/ L 1.56-6.13 wcps=319) LYMPHOCYTES ABSOLUTE COUNT (BEAKER) (test 2.29 K/ L 1.18-3.74 yvij=749) MONOCYTES ABSOLUTE COUNT (BEAKER) (test 0.66 K/ L 0.24-0.36 futu=819) EOSINOPHILS ABSOLUTE COUNT (BEAKER) (test 0.68 K/ L 0.04-0.36 bvyl=121) BASOPHILS ABSOLUTE COUNT (BEAKER) (test 0.06 K/ L 0.01-0.08 cidy=131) IMMATURE GRANULOCYTES-RELATIVE PERCENT (BEAKER) 0 % 0-1 (test wkjq=5213) POCT-GLUCOSE [id number] 11:44:00 Test Item Value Reference Range Comments POC-GLUCOSE METER (BEAKER) 220 mg/dL 70-110 TESTED AT [address] (test dioq=5959) [place] [id number] POCT-GLUCOSE [id number] 07:00:00 Test Item Value Reference Range Comments POC-GLUCOSE METER (BEAKER) 173 mg/dL 70-110 TESTED AT [address] (test cfxa=3088) [facility] [id number] CBC W/PLT COUNT & AUTO [id number] 04:54:00 Test Item Value Reference Range Comments WHITE BLOOD CELL COUNT (BEAKER) (test nqzv=387) 6.8 K/ L 3.5-10.5 RED BLOOD CELL COUNT (BEAKER) (test ydbi=082) 3.49 M/ L 3.93-5.22 HEMOGLOBIN (BEAKER) (test uldk=181) 10.1 GM/DL 11.2-15.7 HEMATOCRIT (BEAKER) (test nukz=525) 33.5 % 34.1-44.9 MEAN CORPUSCULAR VOLUME (BEAKER) (test eris=265) 96.0 fL 79.4-94.8 MEAN CORPUSCULAR HEMOGLOBIN (BEAKER) (test 28.9 pg 25.6-32.2 dtgz=148) MEAN CORPUSCULAR HEMOGLOBIN CONC (BEAKER) (test 30.1 GM/DL 32.2-35.5 mzkx=608) RED CELL DISTRIBUTION WIDTH (BEAKER) (test 15.5 % 11.7-14.4 udgg=054) PLATELET COUNT (BEAKER) (test xlnv=173) 144 K/CU MM 150-450 MEAN PLATELET VOLUME (BEAKER) (test tadx=434) 9.4 fL 9.4-12.3 NUCLEATED RED BLOOD CELLS (BEAKER) (test 0 /100 WBC 0-0 zazf=262) NEUTROPHILS RELATIVE PERCENT (BEAKER) (test 54 % qlok=192) LYMPHOCYTES RELATIVE PERCENT (BEAKER) (test 29 % okvg=127) MONOCYTES RELATIVE PERCENT (BEAKER) (test 8 % ttde=755) EOSINOPHILS RELATIVE PERCENT (BEAKER) (test 7 % oflv=966) BASOPHILS RELATIVE PERCENT (BEAKER) (test 1 % yppu=345) NEUTROPHILS ABSOLUTE COUNT (BEAKER) (test 3.65 K/ L 1.56-6.13 vjrp=815) LYMPHOCYTES ABSOLUTE COUNT (BEAKER) (test 1.99 K/ L 1.18-3.74 ycym=670) MONOCYTES ABSOLUTE COUNT (BEAKER) (test 0.54 K/ L 0.24-0.36 zorv=401) EOSINOPHILS ABSOLUTE COUNT (BEAKER) (test 0.49 K/ L 0.04-0.36 cqxi=358) BASOPHILS ABSOLUTE COUNT (BEAKER) (test 0.06 K/ L 0.01-0.08 fwxz=269) IMMATURE GRANULOCYTES-RELATIVE PERCENT (BEAKER) 1 % 0-1 (test rjrc=1229) BASIC METABOLIC [id number] 04:33:00 Test Item Value Reference Range Comments SODIUM (BEAKER) (test 128 meq/L 136-145 emuw=713) POTASSIUM (BEAKER) (test 4.7 meq/L 3.5-5.1 govr=811) CHLORIDE (BEAKER) (test 99 meq/L 98-107 ofwn=735) CO2 (BEAKER) (test 23 meq/L 22-29 hqgd=488) BLOOD UREA NITROGEN 18 mg/dL 7-21 (BEAKER) (test qyyl=183) CREATININE (BEAKER) (test 1.18 mg/dL 0.57-1.25 unqs=489) GLUCOSE RANDOM (BEAKER) 174 mg/dL 70-105 (test unsf=389) CALCIUM (BEAKER) (test 8.1 mg/dL 8.4-10.2 rwfl=451) EGFR (BEAKER) (test 44 mL/min/1.73 sq m ESTIMATED GFR IS NOT huct=5283) ACCURATE CREATININE CLEARANCE IN PREDICTING GLOMERULAR FILTRATION RATE. ESTIMATED GFR IS NOT APPLICABLE FOR DIALYSIS PATIENTS. POCT-GLUCOSE [id number] 20:41:00 Test Item Value Reference Range Comments POC-GLUCOSE METER (BEAKER) 164 mg/dL 70-110 TESTED AT [place] [address] [facility] (test uiju=0504) [place] [facility] [id number] POCT-GLUCOSE [id number] 16:54:00 Test Item Value Reference Range Comments POC-GLUCOSE METER (BEAKER) 332 mg/dL 70-110 Notified ANGELIKA MONTENEGRO/TESTED AT [facility] (test oshe=6572) [facility] [address] URINALYSIS W/ REFLEX URINE [id number] 15:16:00 Test Item Value Reference Range Comments COLOR (BEAKER) (test eurh=699) Yellow CLARITY (BEAKER) (test todb=728) Hazy SPECIFIC GRAVITY UA (BEAKER) (test cekp=594) 1.016 1.001-1.035 PH UA (BEAKER) (test otqz=407) 6.5 5.0-8.0 PROTEIN UA (BEAKER) (test chqf=188) 50 mg/dL Negative GLUCOSE UA (BEAKER) (test kvmh=326) 200 mg/dL Negative KETONES UA (BEAKER) (test takv=066) Negative Negative BILIRUBIN UA (BEAKER) (test lise=872) Negative Negative BLOOD UA (BEAKER) (test ofvp=817) Negative Negative NITRITE UA (BEAKER) (test gmlx=478) Negative Negative LEUKOCYTE ESTERASE UA (BEAKER) (test zimg=174) Negative Negative UROBILINOGEN UA (BEAKER) (test yqab=522) 0.2 mg/dL 0.2-1.0 RBC UA (BEAKER) (test eqnw=767) 0 /HPF WBC UA (BEAKER) (test nvwf=732) < /HPF MUCUS (BEAKER) (test pljd=4379) Rare SQUAMOUS EPITHELIAL (BEAKER) (test oopx=068) 6 /HPF HYALINE CASTS (BEAKER) (test sfnt=075) 2 /LPF CASTS (BEAKER) (test zwxx=9989) 2 /LPF SOURCE(BEAKER) (test telo=5376) POCT-GLUCOSE [id number] 11:22:00 Test Item Value Reference Range Comments POC-GLUCOSE METER (BEAKER) 251 mg/dL 70-110 TESTED AT [facility] [address] [place] [address] (test rixj=3361) [facility] [address] POCT-GLUCOSE [id number] 06:48:00 Test Item Value Reference Range Comments POC-GLUCOSE METER (BEAKER) 289 mg/dL 70-110 TESTED AT [address] (test yofh=1821) [facility] [address] HEPATIC FUNCTION [id number] 06:19:00 Test Item Value Reference Range Comments TOTAL PROTEIN (BEAKER) (test ojvr=816) 7.4 gm/dL 6.0-8.3 ALBUMIN (BEAKER) (test fijr=0862) 3.5 g/dL 3.5-5.0 BILIRUBIN TOTAL (BEAKER) (test laxp=982) 0.4 mg/dL 0.2-1.2 BILIRUBIN DIRECT (BEAKER) (test vums=234) 0.2 mg/dL 0.1-0.5 ALKALINE PHOSPHATASE (BEAKER) (test tnnn=685) 63 U/L 40-150 AST (SGOT) (BEAKER) (test qntw=196) 12 U/L 5-34 ALT (SGPT) (BEAKER) (test xrhf=222) < U/L 6-55 BASIC METABOLIC [id number] 06:14:00 Test Item Value Reference Range Comments SODIUM (BEAKER) (test 133 meq/L 136-145 wczu=178) POTASSIUM (BEAKER) (test 4.1 meq/L 3.5-5.1 rlnz=287) CHLORIDE (BEAKER) (test 99 meq/L 98-107 bosv=875) CO2 (BEAKER) (test 25 meq/L 22-29 ypaf=490) BLOOD UREA NITROGEN 14 mg/dL 7-21 (BEAKER) (test onip=532) CREATININE (BEAKER) (test 1.06 mg/dL 0.57-1.25 itjy=048) GLUCOSE RANDOM (BEAKER) 266 mg/dL 70-105 (test gtwe=739) CALCIUM (BEAKER) (test 8.8 mg/dL 8.4-10.2 cjtg=138) EGFR (BEAKER) (test 50 mL/min/1.73 sq m ESTIMATED GFR IS NOT vnqa=9377) ACCURATE CREATININE CLEARANCE IN PREDICTING GLOMERULAR FILTRATION RATE. ESTIMATED GFR IS NOT APPLICABLE FOR DIALYSIS PATIENTS. [id number] 05:47:00 Test Item Value Reference Range Comments PROTIME (BEAKER) (test qdhz=353) 16.5 seconds 11.7-14.7 INR (BEAKER) (test cdie=512) 1.3 <=5.9 PARTIAL THROMBOPLASTIN TIME (BEAKER) (test 31.0 seconds 22.5-36.0 osfk=288) RECOMMENDED COUMADIN/WARFARIN INR THERAPY RANGESSTANDARD DOSE: 2.0 - 3.0 Includes: PROPHYLAXIS forvenous thrombosis, systemic embolization; TREATMENT for venous thrombosis and/or pulmonary embolus.HIGH RISK: Target INR is 2.5-3.5 for patients with mechanical heart valves.CBC W/PLT COUNT & AUTO [id number] 05:39:00 Test Item Value Reference Range Comments WHITE BLOOD CELL COUNT (BEAKER) (test onfn=932) 6.6 K/ L 3.5-10.5 RED BLOOD CELL COUNT (BEAKER) (test bpyp=628) 3.87 M/ L 3.93-5.22 HEMOGLOBIN (BEAKER) (test mrki=028) 11.3 GM/DL 11.2-15.7 HEMATOCRIT (BEAKER) (test gyhu=464) 36.6 % 34.1-44.9 MEAN CORPUSCULAR VOLUME (BEAKER) (test qnwr=389) 94.6 fL 79.4-94.8 MEAN CORPUSCULAR HEMOGLOBIN (BEAKER) (test 29.2 pg 25.6-32.2 xqze=377) MEAN CORPUSCULAR HEMOGLOBIN CONC (BEAKER) (test 30.9 GM/DL 32.2-35.5 dwol=652) RED CELL DISTRIBUTION WIDTH (BEAKER) (test 15.9 % 11.7-14.4 wgyu=874) PLATELET COUNT (BEAKER) (test veeg=414) 213 K/CU MM 150-450 MEAN PLATELET VOLUME (BEAKER) (test etii=025) 9.1 fL 9.4-12.3 NUCLEATED RED BLOOD CELLS (BEAKER) (test 0 /100 WBC 0-0 kasl=124) NEUTROPHILS RELATIVE PERCENT (BEAKER) (test 58 % tzvt=808) LYMPHOCYTES RELATIVE PERCENT (BEAKER) (test 29 % auto=524) MONOCYTES RELATIVE PERCENT (BEAKER) (test 8 % pdng=386) EOSINOPHILS RELATIVE PERCENT (BEAKER) (test 4 % dutv=504) BASOPHILS RELATIVE PERCENT (BEAKER) (test 1 % dxlg=871) NEUTROPHILS ABSOLUTE COUNT (BEAKER) (test 3.77 K/ L 1.56-6.13 sxes=857) LYMPHOCYTES ABSOLUTE COUNT (BEAKER) (test 1.88 K/ L 1.18-3.74 tpga=667) MONOCYTES ABSOLUTE COUNT (BEAKER) (test 0.52 K/ L 0.24-0.36 cymo=042) EOSINOPHILS ABSOLUTE COUNT (BEAKER) (test 0.28 K/ L 0.04-0.36 rdah=300) BASOPHILS ABSOLUTE COUNT (BEAKER) (test 0.07 K/ L 0.01-0.08 yyxr=904) IMMATURE GRANULOCYTES-RELATIVE PERCENT (BEAKER) 1 % 0-1 (test hdkk=8124) POCT-GLUCOSE [id number] 05:09:00 Test Item Value Reference Range Comments POC-GLUCOSE METER (BEAKER) 256 mg/dL 70-110 TESTED AT [address] (test ewck=6242) [place] [address] POCT-GLUCOSE [id number] 21:00:00 Test Item Value Reference Range Comments POC-GLUCOSE METER (BEAKER) 215 mg/dL 70-110 TESTED AT [address] (test nxua=5219) [place] [address]
[2017-07-04 14:57] LABS: Absolute Lymphocytes (CBC) 0.4 K/uL (0.7-4.9); Absolute Monocytes 0.3 K/uL (0.1-1.3); Absolute Neutrophil 10.8 K/uL (1.8-8.0); Basophils % 0.2 % (0-1.3); Eosinophils % 0.1 % (0-4.4); Lymphocytes % 3.1 % (15.3-44.8); MCH 26.5 pg (27.0-35.0); MCV 84.7 fL (80-100); MPV 8.7 fL (7.6-11.3); Monocytes % 2.3 % (3.3-12.3); RBC Red Blood Cell Count 4.25 M/uL (3.86-4.86)
--- NOTE | 2017-07-04 14:59 | EKG ---
Test Date: 2017-07-04 Test Time: 14:24:40 Insurance Appraiser: BUDDY MEASUREMENT RESULTS: Intervals: Rate: 93 IN: 162 QRSD: 98 QT: 390 QTc: 484 [place]: P: 37 IN: 162 QRS: -41 T: 33 INTERPRETIVE STATEMENTS: Normal sinus rhythm Left axis deviation Nonspecific T wave abnormality Prolonged QT Abnormal ECG Compared to ECG 05/23/2017 10:07:52 Left-axis deviation now present T-wave abnormality now present Prolonged QT interval now present Atrial premature complex(es) no longer present Electronically Signed On 07-04-17 14:58:51 CDT by Dada Hernandez
--- NOTE | 2017-07-04 15:11 | RAD REPORT ---
EXAM DESCRIPTION: RAD - Chest Single View - 07/04/2017 2:42 pm CLINICAL HISTORY: Two week history of shortness of breath, prior history of CHF COMPARISON: May 2017, February 2017 TECHNIQUE: AP portable chest image was obtained 1440 hours . FINDINGS: The patient has a baseline of very extensive interstitial pulmonary fibrosis. Pattern is n ot substantially different from the comparison studies. Severity of chronic disease can easily mask a n acute interstitial edema or infiltrative process. No large mass or consolidation. Significant failu re component is doubtful. Heart and vasculature are normal. No measurable pleural effusion and no pne umothorax. No gross bony abnormality seen. No acute aortic findings suspected. IMPRESSION: Extensive interstitial pulmonary fibrosis pattern not substantially different from [facility].
[2017-07-04 15:19] LABS: Albumin 2.6 g/dL (3.2-5.5); Bilirubin Direct 0.4 mg/dL (0-0.2); Bilirubin Total 1.2 mg/dL (0.3-1.2); Protein, Total 6.3 g/dL (6.0-8.3)
[2017-07-04 15:20] LABS: Magnesium 1.4 mg/dL (1.8-2.5); Potassium 4.8 mEq/L (3.6-5.0)
[2017-07-04 15:23] LABS: CKMB Creatine Kinase MB 3.1 ng/ml (0.3-4.0)
[2017-07-04 15:26] LABS: Protime INR 1.54
--- NOTE | 2017-07-04 15:38 | EDPHYS ---
Physician Documentation [facility] Name: Olga Turner Age: 76 yrs Sex: Female : 1940 Arrival Date: 07/04/2017 Time: 13:40 Bed 8 Private MD: out of town, doctor ED Physician Feliz Aguirre HPI: 07/04 14:53 This 76 yrs old Female presents to ER via Wheelchair with complaints of snw Shortness Of Breath, Headache, Vomiting. 14:53 The patient has shortness of breath at rest. Onset: The symptoms/episode began/occurred snw gradually, and became worse 3 day(s) ago, and became persistent. Duration: The symptoms are continuous. Associated signs and symptoms: Pertinent positives: productive cough, vomiting. Severity of symptoms: At their worst the symptoms were moderate severe. The patient has experienced similar episodes in the past. sees Theresa Rodriguez MD. Historical: - Allergies: 13:43 PENICILLINS; sv - PMHx: 13:43 AAA; Arthritis; Diabetes - NIDDM; CHF; Hypertension; Hypothyroidism; pulmonary fibrosis;sv - Immunization history:: Adult Immunizations up to date. - Social history:: Smoking status: Patient/guardian denies using tobacco. - Ebola Screening: : No symptoms or risks identified at this time. ROS: 14:38 Eyes: Negative for injury, pain, redness, and discharge, ENT: Negative for injury, snw pain, and discharge, Neck: Negative for injury, pain, and swelling, Cardiovascular: Negative for chest pain, palpitations, and edema. 14:38 Back: Negative for injury and pain, : Negative for injury, bleeding, discharge, and swelling, MS/Extremity: Negative for injury and deformity, Neuro: Negative for headache, weakness, numbness, tingling, and seizure. 14:38 Constitutional: Positive for body aches, fatigue, malaise, poor PO intake. 14:38 Respiratory: Positive for cough, with white sputum. 14:38 Abdomen/GI: Positive for nausea and vomiting. 14:38 Skin: Positive for jaundice. Exam: 14:38 Head/Face: Normocephalic, atraumatic. Eyes: Pupils equal round and reactive to light, snw extra-ocular motions intact. Lids and lashes normal. Conjunctiva and sclera are non-icteric and not injected. Cornea within normal limits. Periorbital areas with no swelling, redness, or edema. ENT: Nares patent. No nasal discharge, no septal abnormalities noted. Tympanic membranes are normal and external auditory canals are clear. Oropharynx with no redness, swelling, or masses, exudates, or evidence of obstruction, uvula midline. Mucous membranes moist. Neck: Trachea midline, no thyromegaly or masses palpated, and no cervical lymphadenopathy. Supple, full range of motion without nuchal rigidity, or vertebral point tenderness. No Meningismus. Chest/axilla: Normal chest wall appearance and motion. Nontender with no deformity. No lesions are appreciated. 14:38 Abdomen/GI: Soft, non-tender, with normal bowel sounds. No distension or tympany. No guarding or rebound. No evidence of tenderness throughout. Back: No spinal tenderness. No costovertebral tenderness. Full range of motion. Skin: Warm, dry with normal turgor. Jaundiced color with areas of petechiae (face and extremities), no rashes, no lesions, and no evidence of cellulitis. MS/ Extremity: Pulses equal, no cyanosis. Neurovascular intact. Full, normal range of motion. Neuro: Awake and alert, GCS 15, oriented to person, place, time, and situation. Cranial nerves II-XII grossly intact. Motor strength 5/5 in all extremities. Sensory grossly intact. Cerebellar exam normal. Normal gait. 14:38 Constitutional: The patient appears awake, uncomfortable. 14:38 Cardiovascular: Rate: tachycardic, Heart sounds: Edema: 1+ edema to level of , JVD: is not appreciated. 14:38 Respiratory: the patient does not display signs of respiratory distress, Respirations: prolonged exhalation, shallow respirations. Vital Signs: 13:43 BP 78 / 59; Pulse 98; Resp 20; Pulse Ox 68% on R/A; Weight 58.97 kg; Height 5 ft. 6 in. sv (167.64 cm); 13:48 BP 101 / 70; Pulse 98; Pulse Ox 98% on 3 lpm NC; sg 14:15 BP 120 / 70; Pulse 95; Resp 18 S; Pulse Ox 98% on 3 lpm NC; sg 15:11 BP 92 / 60; Pulse 88; Resp 20; Pulse Ox 99% on 4 lpm NC; ph 16:35 BP 105 / 70; Pulse 86; Resp 16 S; Temp 99.0; Pulse Ox 99% on 3 lpm NC; Pain 0/10; sg 18:00 BP 94 / 70; Pulse 80 MON; Resp 18; Temp 99.0; Pulse Ox 98% on 3 lpm NC; sg 13:43 Body Mass Index 20.98 (58.97 kg, 167.64 cm) sv 13:43 Pt placed on O2 \T\ 4L per NC. O2 sat up to 98%. sv Lucero Coma Score: 14:15 Eye Response: spontaneous(4). Verbal Response: oriented(5). Motor Response: obeys sg commands(6). Total: 15. 18:00 Eye Response: spontaneous(4). Verbal Response: oriented(5). Motor Response: obeys sg commands(6). Total: 15. MDM: 14:17 Patient medically screened. dale 15:07 Data reviewed: vital signs, nurses notes. Data interpreted: Pulse oximetry: on 3L(s) snw per nasal canula, is 98 %. Interpretation: acceptable. Counseling: I had a detailed discussion with the patient and/or guardian regarding: the historical points, exam findings, and any diagnostic results supporting the discharge/admit diagnosis, lab results, radiology results, the need for outpatient follow up, to return to the emergency department if symptoms worsen or persist or if there are any questions or concerns that arise at home. Physician consultation: Peter Pérez MD was called at 15:08, was contacted at 15:08, regarding admission, to the telemetry unit. 07/04 14:17 Order name: Basic Metabolic Panel; Complete Time: 15:28 snw 07/04 14:17 Order name: BNP; Complete Time: 15:22 snw 07/04 14:17 Order name: CBC with Diff snw 07/04 14:17 Order name: Ckmb; Complete Time: 15:28 snw 07/04 14:17 Order name: CPK; Complete Time: 15:28 snw 07/04 14:17 Order name: LFT's; Complete Time: 15:28 snw 07/04 14:17 Order name: Magnesium; Complete Time: 15:28 snw 07/04 14:17 Order name: PT-INR; Complete Time: 15:54 snw 07/04 14:17 Order name: Ptt, Activated; Complete Time: 15:54 w 07/04 14:17 Order name: Troponin (emerg Dept Use Only); Complete Time: 15:22 07/04 14:17 Order name: Blood Culture Adult (2) 07/04 14:17 Order name: Procalcitonin; Complete Time: 15:37 w 07/04 14:17 Order name: Lactate; Complete Time: 15:13 w 07/04 14:17 Order name: TS; Complete Time: 15:51 w 07/04 14:17 Order name: XRAY Chest (1 view); Complete Time: 15:13 07/04 16:06 Order name: Urinalysis W/Microscopic EDMS 07/04 16:51 Order name: Echo with Doppler EDMS 07/04 16:51 Order name: CBC with Automated Diff EDMS 07/04 16:51 Order name: CBC with Automated Diff EDMS 07/04 16:51 Order name: CBC with Automated Diff EDMS 07/04 16:51 Order name: CBC with Automated Diff EDMS 07/04 16:51 Order name: Comprehensive Metabolic Panel EDMS 07/04 16:51 Order name: Comprehensive Metabolic Panel EDMS 07/04 16:51 Order name: Comprehensive Metabolic Panel EDMS 07/04 16:51 Order name: Comprehensive Metabolic Panel EDMS 07/04 19:48 Order name: CBC Smear Scan MS 07/04 14:17 Order name: EKG; Complete Time: 14:18 07/04 14:17 Order name: Cardiac monitoring; Complete Time: 14:54 07/04 14:17 Order name: EKG - Nurse/Tech; Complete Time: 14:54 07/04 14:17 Order name: IV Saline Lock; Complete Time: 14:54 07/04 14:17 Order name: Labs collected and sent; Complete Time: 14:54 07/04 14:17 Order name: O2 Per Protocol; Complete Time: 14:54 07/04 14:17 Order name: O2 Sat Monitoring; Complete Time: 14:54 07/04 16:51 Order name: CONS Physician Consult EDMS 07/04 16:51 Order name: Physical Therapy Consult EDMS 07/04 16:51 Order name: Consistent Carb (ADA) 1800 Jj EDMS 07/04 16:54 Order name: CONS Pharmacy Consult EDMS Administered Medications: 16:00 Drug: Insulin Regular Human 10 units {Co-Signature: ph (Dorinda Tyler RN).} Route: IVP; sg Site: left forearm; 16:20 Drug: Clindamycin 900 mg Route: IVPB; Infused Over: 30 mins; Site: left forearm; sg 16:20 Drug: Rocephin 1 grams Route: IV; Rate: calculated rate; Site: left forearm; sg 17:00 Drug: Magnesium Sulfate 2 grams Route: IVPB; Infused Over: 2 hrs; Site: left forearm; sg Point of Care Testing: Blood Glucose: 15:13 Blood Glucose: 395 mg/dL; ph 18:00 Blood Glucose: 239 mg/dL; sg Ranges: Critical Glucose Levels:Adult <50 mg/dl or >400 mg/dl <40 mg/dl or >180 mg/dl Disposition: 07/05 07:27 Co-signature as Attending Physician, Feliz Aguirre MD I agree with the assessment and dale plan of care. Disposition: 07/04/17 15:37 Hospitalization ordered by Peter Pérez for Inpatient Admission. Preliminary diagnosis are Unspecified combined systolic (congestive) and diastolic (congestive) heart failure, Pulmonary fibrosis, unspecified, Hypomagnesemia, Type 2 diabetes mellitus with hyperglycemia. - Bed requested for Telemetry/MedSurg (Inpatient). - Status is Inpatient Admission. ak1 - Condition is Fair. - Problem is an acute exacerbation. - Symptoms are unchanged. UTI on Admission? No Signatures: Dispatcher [employer] [facility] Brooklynn Wilkinson RN RN sv Woody, Diana, RN RN dw Gay, Steven, RN RN sg Anderson, Corey, MD MD cha Therrien, Shelly, HANDLE FINISHER-C HANDLE FINISHER-Csnw Lulu Javier RN RN ak1 Dorinda Tyler RN ph Corrections: (The following items were deleted from the chart) 07/04 14:42 14:38 Abdomen/GI: Soft, non-tender, with normal bowel sounds. No distension or tympany. snw No guarding or rebound. No evidence of tenderness throughout. Back: No spinal tenderness. No costovertebral tenderness. Full range of motion. Skin: Warm, dry with normal turgor. Normal color with no rashes, no lesions, and no evidence of cellulitis. MS/ Extremity: Pulses equal, no cyanosis. Neurovascular intact. Full, normal range of motion. Neuro: Awake and alert, GCS 15, oriented to person, place, time, and situation. Cranial nerves II-XII grossly intact. Motor strength 5/5 in all extremities. Sensory grossly intact. Cerebellar exam normal. Normal gait. [facility] 15:37 15:37 Hospitalization Ordered by Peter Pérez MD for Inpatient Admission. Preliminary snw diagnosis is Unspecified combined systolic (congestive) and diastolic (congestive) heart failure; Pulmonary fibrosis, unspecified. Bed requested for Telemetry/MedSurg (Inpatient). Status is Inpatient Admission. Condition is Fair. Problem is an acute exacerbation. Symptoms are unchanged. UTI on Admission? Yes. sn 15:39 15:37 07/04/2017 15:37 Hospitalization Ordered by Peter Pérez MD for Inpatient snw Admission. Preliminary diagnosis is Unspecified combined systolic (congestive) and diastolic (congestive) heart failure; Pulmonary fibrosis, unspecified. Bed requested for Telemetry/MedSurg (Inpatient). Status is Inpatient Admission. Condition is Fair. Problem is an acute exacerbation. Symptoms are unchanged. UTI on Admission? No. snw 17:34 15:39 07/04/2017 15:37 Hospitalization Ordered by Peter Pérez MD for Inpatient dw Admission. Preliminary diagnosis is Unspecified combined systolic (congestive) and diastolic (congestive) heart failure; Pulmonary fibrosis, unspecified; Hypomagnesemia; Type 2 diabetes mellitus with hyperglycemia. Bed requested for Telemetry/MedSurg (Inpatient). Status is Inpatient Admission. Condition is Fair. Problem is an acute exacerbation. Symptoms are unchanged. UTI on Admission? No. snw 20:07 17:34 07/04/2017 15:37 Hospitalization Ordered by Peter Pérez MD for Inpatient ak1 Admission. Preliminary diagnosis is Unspecified combined systolic (congestive) and diastolic (congestive) heart failure; Pulmonary fibrosis, unspecified; Hypomagnesemia; Type 2 diabetes mellitus with hyperglycemia. Bed requested for Telemetry/MedSurg (Inpatient). Status is Inpatient Admission. Condition is Fair. Problem is an acute exacerbation. Symptoms are unchanged. UTI on Admission? No. dw
--- NOTE | 2017-07-04 15:38 | ER ---
Nurse's Notes [facility] Name: Olga Turner Age: 76 yrs Sex: Female : 1940 Arrival Date: 07/04/2017 Time: 13:40 Bed 8 Private MD: out of town, doctor Diagnosis: Unspecified combined systolic (congestive) and diastolic (congestive) heart failure;Pulmonary fibrosis, unspecified;Hypomagnesemia;Type 2 diabetes mellitus with hyperglycemia Presentation: 07/04 13:40 Presenting complaint: Child states: SOB x 2 weeks, vomiting, dizziness. Pt uses O2 \T\ 3L sv per NC at home. Pt came in with no O2. O2 sat 68%. Pt placed on O2 \T\ 4L per NC. Daughter states that her skin color has become more jaundice. Transition of care: patient was not received from another setting of care. Onset of symptoms was June 2017. 13:40 Method Of Arrival: Wheelchair sv 13:40 Acuity: EMEKA 2 sv 13:41 Initial Sepsis Screen: Does the patient meet any 2 criteria? RR > 20 per min. Systolic sv BP < 90 mmHg. Yes Does the patient have a suspected source of infection? Yes: Productive cough/pneumonia No. Patient's initial sepsis screen is negative. Care prior to arrival: None. 14:54 Risk Assessment: Do you want to hurt yourself or someone else? Patient reports no ph desire to harm self or others. Historical: - Allergies: 13:43 PENICILLINS; sv - PMHx: 13:43 AAA; Arthritis; Diabetes - NIDDM; CHF; Hypertension; Hypothyroidism; pulmonary fibrosis;sv - Immunization history:: Adult Immunizations up to date. - Social history:: Smoking status: Patient/guardian denies using tobacco. - Ebola Screening: : No symptoms or risks identified at this time. Screenin:51 Abuse screen: Denies threats or abuse. Denies injuries from another. Nutritional ph screening: No deficits noted. Tuberculosis screening: No symptoms or risk factors identified. Fall Risk No fall in past 12 months (0 pts). No secondary diagnosis (0 pts). IV access (20 points). Ambulatory Aid- None/Bed Rest/Nurse Assist (0 pts). Gait- Normal/Bed Rest/Wheelchair (0 pts) Mental Status- Oriented to own ability (0 pts). Total Adame Fall Scale indicates Low Risk Score (25-44 pts). Fall prevention measures have been instituted. Side Rails Up X 2 Frequent Obs/Assesments occuring Family Present and informed to notify staff if they need to leave bedside As available Patient and Family Educated on Fall Prevention Program and strategies. Assessment: 14:48 General: Appears in no apparent distress. comfortable, slender, well groomed, Behavior ph is calm, cooperative, appropriate for age, Reports chills for >3 days, fever for > 3 days. Pain: Complains of pain in head. Cardiovascular: Reports fatigue, lightheadedness, nausea, shortness of breath, vomiting, Denies chest pain, palpitations, syncope, Capillary refill < 3 seconds Patient's skin is warm and dry. Respiratory: Reports shortness of breath at rest cough that is productive, w/ yellow phlegm Airway is patent Respiratory effort is even, unlabored, Respiratory pattern is regular, symmetrical, Breath sounds are coarse bilaterally. GI: Reports nausea, vomiting, Patient currently denies abdominal pain, diarrhea. Derm: Skin is intact, Skin is dry, Skin is jaundiced, Skin temperature is warm. Musculoskeletal: Circulation, motion, and sensation intact. Range of motion: intact in all extremities. 15:50 Reassessment: Patient appears in no apparent distress at this time. Patient and/or sg family updated on plan of care and expected duration. Pain level reassessed. Patient is alert, oriented x 3, equal unlabored respirations, skin warm/dry/pink. Patient states symptoms have not improved. 16:50 Reassessment: Patient appears in no apparent distress at this time. Patient and/or sg family updated on plan of care and expected duration. Pain level reassessed. Patient is alert, oriented x 3, equal unlabored respirations, skin warm/dry/pink. Patient states feeling better. 18:02 Reassessment: Patient appears in no apparent distress at this time. Patient and/or sg family updated on plan of care and expected duration. Pain level reassessed. Patient is alert, oriented x 3, equal unlabored respirations, skin warm/dry/pink. pt and pt daughter educated on room assignment at this time, no new orders received, pt to be admitted to the fourth floor, awaiting report to be called at this time. Vital Signs: 13:43 BP 78 / 59; Pulse 98; Resp 20; Pulse Ox 68% on R/A; Weight 58.97 kg; Height 5 ft. 6 in. sv (167.64 cm); 13:48 BP 101 / 70; Pulse 98; Pulse Ox 98% on 3 lpm NC; sg 14:15 BP 120 / 70; Pulse 95; Resp 18 S; Pulse Ox 98% on 3 lpm NC; sg 15:11 BP 92 / 60; Pulse 88; Resp 20; Pulse Ox 99% on 4 lpm NC; ph 16:35 BP 105 / 70; Pulse 86; Resp 16 S; Temp 99.0; Pulse Ox 99% on 3 lpm NC; Pain 0/10; sg 18:00 BP 94 / 70; Pulse 80 MON; Resp 18; Temp 99.0; Pulse Ox 98% on 3 lpm NC; sg 13:43 Body Mass Index 20.98 (58.97 kg, 167.64 cm) sv 13:43 Pt placed on O2 \T\ 4L per NC. O2 sat up to 98%. sv Derry Coma Score: 14:15 Eye Response: spontaneous(4). Verbal Response: oriented(5). Motor Response: obeys sg commands(6). Total: 15. 18:00 Eye Response: spontaneous(4). Verbal Response: oriented(5). Motor Response: obeys sg commands(6). Total: 15. ED Course: 13:40 Patient arrived in ED. mr 13:40 out of town, doctor is Private Physician. mr 13:42 Triage completed. sv 13:43 Arm band placed on right wrist. sv 13:44 Patient placed in an exam room, on a stretcher, on oxygen. sv 14:12 Riaz Novak, ANGELIKA is Primary Nurse. sg 14:14 Kelly William FNP-C is PHCP. snw 14:14 Feliz Aguirre MD is Attending Physician. snw 14:30 EKG done, by process safety engineering technologist. reviewed by Kelly RUSSELL. sm3 14:30 Inserted saline lock: 20 gauge in left antecubital area, using aseptic technique. ph Missed attempt(s): 20 gauge in right antecubital area. 14:40 XRAY Chest (1 view) In Process Unspecified. EDMS 14:40 X-ray completed. Portable x-ray completed in exam room. Patient tolerated procedure kc2 well. 14:53 Patient has correct armband on for positive identification. Placed in gown. Bed in low ph position. Call light in reach. Side rails up X2. personnel monitor on. Pulse ox on. NIBP on. Warm blanket given. 15:35 Peter Pérez MD is Hospitalizing Provider. snw 17:59 No provider procedures requiring assistance completed. Patient admitted, IV remains in sg place. intact, No redness/swelling at site. Administered Medications: 16:00 Drug: Insulin Regular Human 10 units {Co-Signature: ph (Dorinda Tyler RN).} Route: IVP; sg Site: left forearm; 16:20 Drug: Clindamycin 900 mg Route: IVPB; Infused Over: 30 mins; Site: left forearm; sg 16:20 Drug: Rocephin 1 grams Route: IV; Rate: calculated rate; Site: left forearm; sg 17:00 Drug: Magnesium Sulfate 2 grams Route: IVPB; Infused Over: 2 hrs; Site: left forearm; sg Point of Care Testing: Blood Glucose: 15:13 Blood Glucose: 395 mg/dL; ph 18:00 Blood Glucose: 239 mg/dL; sg Ranges: Outcome: 15:37 Decision to Hospitalize by Provider. snw 17:58 Admitted to Med/surg accompanied by tech, family with patient, via stretcher, room 422, sg with chart, Report called to ANGELIKA Faith 17:58 Condition: stable 17:58 Instructed on the need for admit, safety practices, Demonstrated understanding of instructions. 20:07 Patient left the ED. ak1 Signatures: Dispatcher [employer] EDMA Brooklynn Wilkinson RN RN Riaz Novak RN RN Kelly William, HOSPICE CARE SALES CONSULTANT-C HOSPICE CARE SALES CONSULTANT-Csnw Princess Kauffman mr CarlisleverenicefelipeLulu RN RN ak1 Dorinda Tyler RN RN Tiana Barajas [facility] Vania Trejo [facility] Dorinda Tyler RN ph Corrections: (The following items were deleted from the chart) 17:01 16:10 Magnesium Sulfate 2 grams IVPB in left forearm over 2 hrs sg sg
[2017-07-04] MEDS ORDERED: INSULIN -REGULAR HUMAN 50 UNIT/0.5 ML ML ONE (16:14)
[2017-07-04] MEDS ORDERED: CLINDAMYCIN 900MG/D5W 900 MG/50 ML BAG IV ONE (16:15)
[2017-07-04] MEDS ORDERED: CEFTRIAXONE/SWI 1gm 1 GM/10 ML SYR ONE (16:15)
[2017-07-04] MEDS ORDERED: Magnesium Sulfate 2gm IVPB 2 G/50 ML BAG IV ONE (16:15)
[2017-07-04] MEDS ORDERED: ACETAMINOPHEN 500 MG TAB PO PRN (16:41)
[2017-07-04] MEDS ORDERED: IPRATROPIUM BROM 0.5MG/2.5ML NEB PRN (16:41)
[2017-07-04] MEDS ORDERED: ALBUTEROL 2.5 MG/3 ML NEB SOL NEB PRN (16:41)
[2017-07-04] MEDS ORDERED: PROMETHAZINE 25 MG/ML VIAL IV PRN (16:47)
[2017-07-04] MEDS ORDERED: GLUCAGON 1 MG/VIAL IM PRN (16:49)
[2017-07-04] MEDS ORDERED: D50W 25 GM/50 ML SYRINGE IV PRN (16:49)
[2017-07-04] MEDS: FUROSEMIDE 40 MG/4 ML VIAL IV SCH (17:00)
[2017-07-04 19:48] LABS: Blood Morphology Comment NOT SEEN (NOT SEEN); Platelet Estimate ADEQ; Urine White Blood Cell Casts OK
[2017-07-04 21:42] LABS: Urine Appearance CLEAR; Urine Bilirubin NEGATIVE (NEG); Urine Blood NEGATIVE (NEG); Urine Color YELLOW; Urine Glucose 2+ (NEG); Urine Protein TRACE (NEG); Urine Urobilinogen 0.2 mg/dL (0.2-1.0); Urine pH 5.5 (5.0-7.0)
[2017-07-04 21:50] LABS: Urine Bacteria <20 /HPF (<20); Urine Culture Reflex Order REFLEXED; Urine RBC <5 /HPF (NONE SEEN); Urine Yeast PRESENT (NONE SEEN)
[2017-07-04] MEDS: INSULIN -REGULAR HUMAN 50 UNIT/0.5 ML ML SQ SCH (22:13)
[2017-07-05] MEDS: CLINDAMYCIN INJ 600 MG in NA CHLORIDE 0.9% 50 ML IV SCH ×2 (00:31→06:08)
--- NOTE | 2017-07-05 02:25 | HP ---
Date of Admission: 07/04/2017 Primary Care Physician: Out of town. Code Status: DNR. Daughter is the medical power of band top maker. No living will. Chief Complaint: Shortness of breath, nausea, vomiting. History Of Present Illness: The patient is a 76-year-old female with multiple comorbid conditions in cluding osteoarthritis, CHF, diabetes, hypertension, pulmonary fibrosis, hypothyroidism, history of A AA, hyperlipidemia, multiple falls, who was in her usual state of health until 3 days prior to admiss ion when the patient started having sudden onset of nausea and vomiting along with some dizziness, ge neralized weakness. The patient also reports some cough along with sputum production and fever up to 100.2. The patient denies any ill contact. The patient's symptoms are constant, moderate, progress ively worsening. The patient of note is on 3 L of oxygen at home 24x7. The patient came into the ER for further evaluation of her symptoms. She was found to be hypotensive. Her workup revealed multi ple electrolyte abnormalities. Sodium was 127, chloride 83, CO2 of 34, her creatinine was elevated a t 1.5, glucose was 458, magnesium was 1.4. Troponin was elevated at 0.08. BNP was 2167. Procalcito ema was elevated at 2.4. WBC count at 11.4, platelets were low at 84. Chest x-ray was done, which s howed extensive interstitial pulmonary fibrosis pattern, potentially different from comparison. The patient was then referred for admission for CHF. She was given some magnesium, Rocephin, and clindam ycin. She was also given some insulin for her hyperglycemia. When seen in the ER, the patient was a wake, alert, and oriented, in some moderate distress with daughter at the bedside. The patient is ma [facility] Yemeni speaking. Past Medical History: Osteoarthritis, diabetes, CHF, hypertension, pulmonary fibrosis on 3 L of oxyg en 24x7, hypothyroidism, AAA, history of recurrent falls, hyperlipidemia, rheumatoid arthritis. Pas Surgical History: Back surgery, bilateral knee replacement, hysterectomy. Allergies: TO PENICILLIN, UNKNOWN REACTION; MORPHINE, WHICH CAUSES DIZZINESS. Home Medications: List reviewed. Social History: The patient is a former smoker. No current tobacco use, alcohol use, or illicit magdiel g use. Lives at home. Does need some assistance with her activities of daily living. Family History: Father at 36, unknown cause. Mother has hypertension, lung disease, ovarian ca ncer. Sister; hypertension, stroke, and cancer. Review of Systems: Eleven-point system reviewed and negative except as per HPI. Physical Examination: Vital Signs: Blood pressure 78/59, pulse 98, respirations 20, O2 68% on room air, improved to 120/70 blood pressure, O2 98% on 3 L via nasal cannula. General: Awake, alert, oriented x3, in some moderate distress, ill-appearing elderly female. HEENT: Normocephalic, atraumatic. PERRLA. EOMI. Dry mucous membranes. Oropharynx is clear. Conj unctiva is anicteric. Neck: Supple. Trachea midline. CV: S1, S2. Murmur is present. Peripheral pulses are present bilaterally. Respiratory: Diminished breath sounds. Some crackles heard throughout. No wheezing. No use of acc essory muscles. Gastrointestinal: Abdomen is soft, nontender, and nondistended. Positive bowel sounds. No guarding or rigidity. Extremities: No clubbing or cyanosis. Pedal edema is present. No calf tenderness. Neuro: Cranial nerves 2 through 12 intact grossly. No focal neurological deficit. Speech is normal . Skin: No rashes. Normal skin turgor. Laboratory Data: INR 1.54. Sodium 127, potassium 4.8, chloride 83, CO2 of 24, BUN 37, creatinine 1. 5, glucose 158, lactate 14.6, calcium 8.2, magnesium 1.4. Troponin 0.08. BNP 2167, albumin 2.6, pro calcitonin 2.45. WBC 11.4, H and H 11.3 and 36, platelets 84, neutrophils 94%. Chest x-ray shows ex tensive interstitial pulmonary fibrosis pattern, not substantially different from comparison. EKG sh owed normal sinus rhythm, rate of 93, left axis deviation, and nonspecific T-wave abnormality, prolon ged QT. Assessment And Plan: A 76-year-old female with; 1.Acute combined systolic and diastolic heart failure. BNP is elevated at 2167. The patient will g felisha gentle diuresis. Consult Cardiology. Repeat echocardiogram. Echocardiogram from February shows EF of 53%, aortic sclerosis, moderate aortic regurgitation. 2.Sepsis. Procalcitonin is 2.45. White count 11.4. Source of infection is likely pulmonary. The patient is hypotensive, tachypneic, hypoxic. Continue with sepsis bundle. 3.Likely underlying pneumonia bilateral. Continue with IV antibiotics. We will avoid azithromycin and fluoroquinolones due to QT prolongation. We will obtain blood cultures and sputum culture. 4.Hyponatremia. We will monitor sodium, fluid restriction. 5.Acute on chronic kidney disease stage 2. Continue to monitor creatinine. 6.Diabetes mellitus type 2 with hyperglycemia, gut-[id number]. We will give 2 units of insul in. Anion gap is closed. We will place on moderate sliding scale. 7.Moderate protein-calorie malnutrition. Albumin is 2.6. 8.Elevated troponin level, likely secondary to sepsis and congestive heart failure. No chest pain. No acute changes on EKG. 9.Hypomagnesemia. We will replace and monitor. 10.Mild pulmonary hypertension. 11.Extensive pulmonary fibrosis. 12.Chronic respiratory failure. The patient is on 3 L of oxygen 24x7 due to chronic obstructive pul monary disease and pulmonary fibrosis. 13.Osteoarthritis, generalized. 14.Essential hypertension, currently hypotensive. 15.Hypothyroidism. Continue Synthroid. 16.Abdominal aortic aneurysm. 17.Hyperlipidemia. 18.Rheumatoid arthritis. Plan: Admit the patient to Med-Surg, place as inpatient. We will obtain Cardiology and Pulmonology consultation. The patient is DNR. /FERNANDO Voice ID: [id number]
--- NOTE | 2017-07-05 04:40 | CON ---
Date of Consultation: 07/04/[address] Pérez's service on 07/04/2017. I saw the patient on 07/04/2017. Reason For Consultation: Congestive heart failure. History Of Present Illness: Ms. Turner is a 76-year-old woman with an extensive pas t history. She has a history of thoracoabdominal aneurysm greater than 5 cm. The family is aware of it and so the patient has seen Surgery in [place], who recommended conservative treatment because of high-risk surgery. She has a history of diabetes; dyslipidemia; chronic diastolic congestive heart failure; hypertension; pulmonary fibrosis, on home oxygen; and hypothyroidism. She sees Dr. Santiago at [facility] in [place]. She lives in [place], [place]. She came in with shortness of bere th, headache, vomiting. Chest x-ray showed pulmonary fibrosis. EKG showed nonspecific changes. She has an echocardiogram in February of 2017 showing moderate aortic regurgitation, normal ejection frac tion with mild pulmonary hypertension. Allergies: SHE IS ALLERGIC TO PENICILLIN AND MORPHINE. Review of Systems: Negative. Social History: Negative. Family History: Noncontributory. Medications At Home: Include home oxygen, aspirin, Pletal, Lyrica, insulin, and Pravachol. Physical Examination: Vital Signs: Stable. She was afebrile. She was in sinus rhythm. HEENT: Negative. Neck: Supple without any bruit, lymphadenopathy, JVD, or thyromegaly. Chest: Revealed rales at both bases with some expiratory wheezing. Cardiac: Revealed regular rhythm and rate with a 3/6 holosystolic murmur at third intercostal space that did not radiate. She had no murmur. No gallops or rubs. Abdomen: Benign. Extremities: Revealed trace edema. Diagnostic Data: BNP was 2167. Troponin 0.08. Magnesium was 1.4. Her glucose was 458. EKG showed nonspecific changes. She had sodium of 127, chloride 83, creatinine 1.5. Her INR is 1.58. Her [facility] te count was 11,000. Impression And Plan: 1.Acute exacerbation of chronic diastolic congestive heart failure. 2.Pulmonary fibrosis, on home oxygen. 3.Moderate aortic regurgitation with mild pulmonary hypertension by echocardiography in February. 4.Thoracoabdominal aneurysm with medical management. 5.Diabetes. 6.Dyslipidemia. 7.Hypertension. 8.Hypothyroidism. 9.Hypomagnesemia. 10.Renal insufficiency. 11.Hyponatremia. 12.Elevated BNP and troponin secondary to congestive heart failure. Mrs. Turner needs to be diuresed gently watching her creatinine. She has her sugar better controll ed. She has had a repeat echocardiogram because of a history of congestive heart failure and aortic regurgitation. She is really not a candidate for cardiac or coronary intervention unless we have to. She has her magnesium supplemented. We will watch her laboratory evaluation as well as her weight, I's and O's. The patient sees Dr. Santiago in [place] every 3 months. She will follow up with him afte r she leaves the hospital. Her medical regimen at home did not include Lasix and that may be indicat ed along with salt restrictions and fluid restrictions. Her dyslipidemia is well controlled on Prava chol. She will continue to follow along with Dr. Pérez. We will see what her echocardiogram shows before making further decisio ns. EL/FERNANDO Voice ID: [id number] Report ID: [id number]
[2017-07-05 04:51] VITALS: BMI 20.9
[2017-07-05 06:25] LABS: Absolute Lymphocytes (CBC) 1.2 K/uL (0.7-4.9); Absolute Monocytes 0.5 K/uL (0.1-1.3); Absolute Neutrophil 5.7 K/uL (1.8-8.0); Basophils % 0.3 % (0-1.3); Eosinophils % 1.3 % (0-4.4); Hematocrit 32.9 % (36.0-45.0); Lymphocytes % 15.6 % (15.3-44.8); MCV 83.8 fL (80-100); MPV 8.6 fL (7.6-11.3); Monocytes % 6.2 % (3.3-12.3); RBC Red Blood Cell Count 3.93 M/uL (3.86-4.86)
[2017-07-05 06:39] LABS: Albumin 2.3 g/dL (3.2-5.5); Bilirubin Total 0.7 mg/dL (0.3-1.2); Potassium 4.4 mEq/L (3.6-5.0); Protein, Total 5.7 g/dL (6.0-8.3)
[2017-07-05] MEDS: INSULIN -REGULAR HUMAN 50 UNIT/0.5 ML ML SQ SCH ×4 (07:30→20:46)
--- NOTE | 2017-07-05 08:24 | P.CNS ---
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 she has a diagnosis of pulmonary fibrosis the productive cough no fever or chills limited Yi Allergies Penicillins Allergy (Unknown, Verified 07/04/17 22:17) Unknown Home Medications: Leflunomide 20 mg PO BEDTIME 02/12/17 Levothyroxine Sodium 100 mcg PO DAILY 02/12/17 Pregabalin [Lyrica*] 100 mg PO BID 02/12/17 Insulin Aspart [Novolog Flexpen] 2 unit SQ TIDWM 02/13/17 Alprazolam [Xanax] 0.25 mg PO TID PRN 07/05/17 Benzonatate 200 mg PO TID 07/05/17 Docusate/Senna [Senokot-S] 1 tab PO DAILY 07/05/17 Furosemide [Lasix] 40 mg PO DAILY 07/05/17 Hyoscyamine Sulfate [Oscimin Sl] 0.125 mg SL DAILY 07/05/17 Ondansetron [Zofran] 4 mg PO Q4HP PRN 07/05/17 Prednisone [Prednisone*] 10 mg PO DAILY 07/05/17 - Past Medical/Surgical History Diabetic: Yes -: Osteoarthritis -: CHF -: Diabetes mellitus -: HTN -: Pulmonary fibrosis -: Hypothyroidism -: AAA -: History of fall -: Hyperlipidemia -: Home O2 -: RA -: nasal CA (left) -: Back Surgery -: Bilat Knee Replacement -: Hysterectomy Psychosocial/ Personal History: The patient is . She lives at home. - Family History Father Notes: at 36 - unknown cause Mother Medical History: Hypertension, Lung disease, Cancer Notes: Ovarian Cancer Sister Medical History: Heart disease, Hypertension, Stroke, Cancer - Social History Smoking Status: Unknown if ever smoked Alcohol use: No CD- Drugs: No Caffeine use: Yes Place of Residence: Home Review of Systems General: Weakness Respiratory: Cough, Shortness of Breath Physical Examination Temp Pulse Resp BP Pulse Ox 96.3 F L 89 16 94/58 L 98 07/05/17 04:00 07/05/17 04:00 07/05/17 04:00 07/05/17 04:00 07/05/17 04:00 General: Alert, Cooperative Neck: Supple Respiratory: Crackles/rales (Crackles bilaterally) Cardiovascular: No edema, Regular rate/rhythm, Normal S1 S2 Gastrointestinal: Normal bowel sounds, Soft and benign Musculoskeletal: No clubbing, No contractures Laboratory Data (last 24 hrs) 07/04/17 14:35: PT 18.2 H, INR 1.54, APTT 28.0 07/04/17 14:35: WBC 11.4 H, Hgb 11.3 L, Hct 36.0, Plt Count 84 L 07/04/17 14:35: B-Natriuretic Peptide 2167 H 07/04/17 14:35: Sodium 127 L, Potassium 4.8, BUN 37 H, Creatinine 1.50 H, Glucose 458 H*, Magnesium 1.4 L*, Total Bilirubin 1.2, AST 28, ALT 19, Alkaline Phosphatase 114 - Problems (1) Pulmonary fibrosis Current Visit: Yes Status: Acute Plan: Patient is 76 years of age admitted with cough congestion shortness of breath for a month she has significant interstitial lung disease the chronic pulmonary fibrosis most likely end-stage patient is on home oxygen white count was mildly elevated I suggest adding some steroids levofloxacin sputum cultures check an echocardiogram vital signs stable possible discharge tomorrow I have ordered an echo with Doppler she could probably be discharged home tomorrow on prednisone 10 b.i.d. for 2 weeks in addition to levofloxacin for 7 days may have underlying pneumonia most likely exacerbation of her underlying pulmonary fibrosis she otherwise looks satisfactory
[2017-07-05] MEDS ORDERED: CEFTRIAXONE/SWI 1gm 1 GM/10 ML SYR IVP SCH (09:00)
--- NOTE | 2017-07-05 09:47 | RAD REPORT ---
EXAM DESCRIPTION: CT - Thorax Wo Con - 07/05/2017 9:17 am CLINICAL HISTORY: Pulmonary fibrosis, shortness of breath COMPARISON: Chest exam July 04, CT chest August 22 TECHNIQUE: Axial 5 mm thick images of the chest were obtained without IV contrast. All CT scans are performed using dose optimization technique as appropriate and may include automated exposure control or mA/KV adjustment according to patient size. FINDINGS: Extensive interstitial thickening is present throughout the lung aceves worse in each lung base. Innumerable cystic cavities are present in the lung aceves, again more pronounced in each lung base. Flatter and is not clearly different from August 2016. No superimposed infiltrate identified at is distinguishable from the background fibrosis. No pneumothorax or pleural effusion. No pneumothorax . Nonspecific mediastinal lymph nodes are present. These are also stable in size and number. Cardiomega ly is present without pericardial effusion. Prominent aortic calcifications are present without displ acement. Ascending aorta is 3.4 cm. Aortic arch is 4.5 cm with the descending thoracic aorta in the m id 0.4 0.1 cm. At the jil of the diaphragm aorta measures 6.1 x 5.1 cm in long and short axis dimens ion. No acute periaortic process. Pulmonary arteries are not enlarged. Assessment is limited in the a bsence of IV contrast. No chest wall mass or abnormal axillary lymphadenopathy. IMPRESSION: Very extensive pulmonary fibrosis pattern with innumerable cystic cavities in the lung f ields. All findings are worse in each lung base. No mass or infiltrate seen that is distinguishable from the baseline fibrosis. Prominent thoracic aortic aneurysm not substantially different from August 2016.
[2017-07-05] MEDS: predniSONE 20 MG TAB PO SCH ×2 (09:48→20:46)
[2017-07-05] MEDS: FUROSEMIDE 40 MG/4 ML VIAL IV SCH ×2 (09:49→16:36)
[2017-07-05] MEDS: BENZONATATE 100 MG CAP PO SCH ×2 (11:54→20:46)
[2017-07-05] MEDS: INSULIN LISPRO 100 UNIT/1 ML SQ SCH ×2 (11:55→16:37)
--- NOTE | 2017-07-05 12:12 | ECHO ---
HEIGHT: 5 ft 6 in WEIGHT: 129 lb 11.2 oz DATE OF STUDY: 07/05/[address]: Peter Pérez MD 2-DIMENSIONAL: YES M.MODE: YES DOPPLER: YES COLOR FLOW: YES TDS: PORTABLE: DEFINITY: BUBBLE STUDY: DIAGNOSIS: CONGESTIVE HEART FAILURE CARDIAC HISTORY: CATHERIZATION: SURGERY: PROSTHETIC VALVE: PACEMAKER: MEASUREMENTS (cm) DIASTOLIC (NORMALS) SYSTOLIC (NORMALS) IVSd 1.2 (0.6-1.2) LA Diam 4.2 (1.9-4.0) LVEF 37% LVIDd 4.7 (3.5-5.7) LVIDs 3.9 (2.0-3.5) %FS 18% LVPWd 1.4 (0.6-1.2) Ao Diam 3.3 (2.0-3.7) 2 DIMENSIONAL ASSESSMENT: RIGHT ATRIUM: DILATED LEFT ATRIUM: DILATED RIGHT VENTRICLE: NORMAL LEFT VENTRICLE: LEFT VENTRICULAR HYPERTROPHY TRICUSPID VALVE: NORMAL MITRAL VALVE: NORMAL PULMONIC VALVE: NORMAL AORTIC VALVE: SCLEROSIS PERICARDIAL EFFUSION: NONE AORTIC ROOT: NORMAL LEFT VENTRICULAR WALL MOTION: GLOBAL HYPOKINESIS DOPPLER/COLOR FLOW: NO SIGNIFICANT AORTIC STENOSIS. MILD TO MODERATE AORTIC, MITRAL AND TRICUSPID REGURGTATION. MODERATE PULMONARY HYPERTENSION. ESTIMATED RIGHT VENTRICULAR SYSTOLIC PRESSURE 50 mmHg. COMMENTS: DEPRESSED LEFT VENTRICULAR EJECTION FRACTION. DILATED LEFT AND RIGHT ATRIUM. AORTIC SCLEROSIS WITH NO SIGNIFICANT STENOSIS. MILD TO MODERATE AORTIC, MITRAL AND TRICUSPID REGURGITATION. MODERATE PULMONARY HYPERTENSION. TECHNOLOGIST: ALDO MARQUEZ
[2017-07-05] MEDS: IPRATROPIUM BROM 0.5MG/2.5ML NEB SCH ×2 (13:42→20:22)
[2017-07-05] MEDS ORDERED: HYDROMORPHONE ORAL 4 MG TAB PO PRN (13:45)
[2017-07-05] MEDS ORDERED: HYDROMORPHONE ORAL 2 MG TAB PO PRN (13:52)
[2017-07-05] MEDS ORDERED: HYDROMORPHONE ORAL 2 MG TAB PO SCH (14:00)
[2017-07-05] MEDS: levoFLOXacin 500 MG TAB PO SCH (16:37)
--- NOTE | 2017-07-05 17:16 | PN ---
Date of Progress Note: 07/05/2017 Subjective: The patient is seen and examined, chart reviewed, and case discussed with RN, the zulay ayala, and Dr. Salomon. The patient seems to be doing better. Her breathing is improved. Review of Systems: Negative except as above. Medications: Reviewed. Objective: Vital Signs: Temperature 97, heart rate 86, blood pressure 93/60, respirations 18, and O 2 100% on 3 L via nasal cannula. General: Awake, alert, oriented x3. Some mild distress due to her breathing. Elderly female, ill-a ppearing, frail. BMI 20. CV: S1, S2. No murmurs. Regular rate and rhythm. Peripheral pulses present. Respiratory: Diminished breath sounds, however, improving significantly. No wheezing. Gastrointestinal: Abdomen is soft, nontender, nondistended. Positive bowel sounds. Extremities: No clubbing, cyanosis, edema. Neurologic: Nonfocal. Laboratory Data: Sodium 133, potassium 4.4, chloride 88, CO2 39, BUN 36, creatinine 1.39, glucose 96 , calcium 8, and albumin 2.3. WBC 7.5, H and H 10.6, 32.9, platelets 81 and neutrophils 76.6%. Bloo d cultures and urine cultures pending. Echocardiogram shows EF of 37%, dilated left and right atrium , aortic sclerosis, no significant stenosis, [id number] aortic, mitral, and tricuspid regurg, m oderate pulmonary hypertension. CT scan of the chest was reviewed, shows very extensive pulmonary fi brosis pattern with innumerable cystic cavities in the lung aceves. All findings worse in each lung base. No mass or infiltrate seen that is distinguishable from the baseline fibrosis. Prominent thor acic aortic aneurysm, not substantially different from 2017. Assessment: A 76-year-old female with; 1.Sepsis secondary to pneumonia. 2.Acute combined systolic and diastolic heart failure. Ejection fraction is 37%. 3.Moderate aortic regurgitation. 4.Moderate pulmonary hypertension. 5.Pneumonia, bilateral. We will continue with IV antibiotics. Appreciate Dr. Salomon's input. We will follow up with blood cultures and sputum cultures. 6.Hyponatremia, improved. Continue with fluid restriction. 7.Acute on chronic kidney disease stage 2. Monitor. Creatinine improving. 8.Diabetes mellitus type 2 with hyperglycemia, non-insulin requiring. Continue sliding scale. Cont inue Accu-Cheks. 9.Moderate protein-calorie malnutrition. 10.Elevated troponin level secondary to sepsis and congestive heart failure. No chest pain. Apprec iate Dr. Hernandez's input. 11.Hypomagnesemia, replace and monitor. 12.Extensive pulmonary fibrosis with acute exacerbation. We will continue with steroids. 13.Chronic respiratory failure on 3 L of oxygen at home due to pulmonary fibrosis and chronic obstru ctive pulmonary disease. 14.Osteoarthritis, generalized, stable. 15.Essential hypertension. Blood pressure currently on the low side. 16.Hypothyroidism. Continue Synthroid. 17.Abdominal aortic aneurysm with medical management. 18.Mixed hyperlipidemia. Resume home medications. 19.Rheumatoid arthritis. SA/MODL Voice ID: [id number] Report ID: [id number]
[2017-07-05] MEDS: PREGABALIN 50 MG CAP PO SCH (20:46)
[2017-07-05] MEDS ORDERED: LEFLUNOMIDE 20 MG PO SCH (21:00)
[2017-07-05] MEDS ORDERED: GUAIFENESIN/CODEINE 5ML UCUP PO SCH (21:00)
--- NOTE | 2017-07-06 00:37 | PN ---
Date of Progress Note: 07/05/2017 Subjective: The patient was seen by me on 07/04/2017 because of congestive heart failure symptoms, s hortness of breath, headaches, and vomiting. She is on home oxygen because of pulmonary fibrosis. E chocardiography showed ejection fraction of 37% with [id number] aortic regurgitation and mild m itral and tricuspid regurgitation, moderate pulmonary hypertension. EF was 37%. Right ventricular s ystolic pressure was 50 mmHg. I believe the patient obviously had acute on chronic systolic congesti ve heart failure in addition to pulmonary fibrosis. I would continue respiratory treatment as being done. Continue diuresis. The patient is not on any appropriate congestive heart failure medication. Her creatinine is 1.5. She is probably not a great candidate for OSCAR inhibitors, but I would defin itely suggest Lasix on a regular basis. She probably would not tolerate beta-lenin with her pulmon valdez issues. She is not a candidate for Entresto. I think Lasix should be the mainstay of therapy in addition to her other regimen. EL/FERNANDO Voice ID: [id number] Report ID: [id number]
[2017-07-06] MEDS: IPRATROPIUM BROM 0.5MG/2.5ML NEB SCH ×3 (01:41→13:21)
[2017-07-06 04:55] LABS: Absolute Lymphocytes (CBC) 0.6 K/uL (0.7-4.9); Absolute Monocytes 0.2 K/uL (0.1-1.3); Absolute Neutrophil 6.5 K/uL (1.8-8.0); Basophils % 0.1 % (0-1.3); Hematocrit 35.1 % (36.0-45.0); Lymphocytes % 7.9 % (15.3-44.8); MCH 26.9 pg (27.0-35.0); MCV 84.4 fL (80-100); MPV 8.7 fL (7.6-11.3); Monocytes % 2.8 % (3.3-12.3); RBC Red Blood Cell Count 4.16 M/uL (3.86-4.86)
[2017-07-06 05:02] LABS: Albumin 2.6 g/dL (3.2-5.5); Bilirubin Total 0.9 mg/dL (0.3-1.2); Magnesium 1.8 mg/dL (1.8-2.5); Protein, Total 6.2 g/dL (6.0-8.3)
[2017-07-06 05:10] LABS: Potassium 5.9 mEq/L (3.6-5.0)
[2017-07-06 06:00] LABS: Blood Morphology Comment NOT SEEN (NOT SEEN); Platelet Estimate DECR; Urine White Blood Cell Casts OK
[2017-07-06] MEDS ORDERED: MAGNESIUM SULFATE 1 gm IVPB 1 GM/100 ML BAG IV ONE (06:00)
[2017-07-06] MEDS ORDERED: LEVOTHYROXINE SOD 0.1 MG TAB PO SCH (06:30)
[2017-07-06] MEDS: INSULIN -REGULAR HUMAN 50 UNIT/0.5 ML ML SQ SCH ×2 (07:30→11:56)
[2017-07-06 07:32] VITALS: O2SAT 98
[2017-07-06] MEDS: INSULIN LISPRO 100 UNIT/1 ML SQ SCH ×2 (08:00→11:55)
[2017-07-06] MEDS ORDERED: DOCUSATE NA/SENNA CONC 1 TAB PO SCH (09:00)
[2017-07-06] MEDS ORDERED: HYOSCYAMINE SULF 0.125 MG TAB SL SCH (09:00)
[2017-07-06] MEDS: BENZONATATE 100 MG CAP PO SCH (09:35)
[2017-07-06] MEDS: PREGABALIN 50 MG CAP PO SCH (09:35)
[2017-07-06] MEDS: FUROSEMIDE 40 MG/4 ML VIAL IV SCH (09:35)
[2017-07-06] MEDS: predniSONE 20 MG TAB PO SCH (09:36)
[2017-07-06] MEDS: levoFLOXacin 500 MG TAB PO SCH (09:36)
[2017-07-06] MEDS ORDERED: MAGIC MOUTHWASH 180 ML BTL PO PRN (10:51)
[2017-07-06 12:46] VITALS: BP 102/63; TEMP 96.8
[2017-07-06] MEDS ORDERED: FLUCONAZOLE 100 MG TAB PO ONE (13:01)
--- NOTE | 2017-07-06 19:04 | DS ---
Date of Discharge: 07/06/2017 Consultants: Dr. Hernandez with Cardiology, Dr. Salomon with Pulmonology. Admitting Diagnoses: 1. Acute combined systolic and diastolic heart failure. 2. Sepsis. 3. Underlying pneumonia, bilateral. 4. Hyponatremia. 5. Acute on chronic kidney disease, stage 2. 6. Diabetes mellitus type 2 with hyperglycemia, non-insulin requiring. 7. Moderate protein-calorie malnutrition. 8. Elevated troponin level. 9. Hypomagnesemia. 10. Mild pulmonary hypertension. 11. Extensive pulmonary fibrosis. 12. Chronic respiratory failure, on 3 L of oxygen at home. 13. Osteoarthritis, generalized. 14. Essential hypertension, currently hypotensive. 15. Hypothyroidism. 16. Abdominal aortic aneurysm. 17. Hyperlipidemia. 18. Rheumatoid arthritis. Discharge Diagnoses: 1. Sepsis secondary to pneumonia. 2. Acute combined systolic and diastolic heart failure, EF 37%. 3. Moderate aortic regurgitation. 4. Moderate pulmonary hypertension. 5. Bilateral pneumonia. 6. Hyponatremia, improving. 7. Acute on chronic kidney disease, improved creatinine. 8. Diabetes mellitus type 2 with hypoglycemia, non-insulin requiring. 9. Moderate protein-calorie malnutrition. 10. Elevated troponin level secondary to sepsis and congestive heart failure. 11. Hypomagnesemia, replaced. 12. Extensive pulmonary fibrosis with acute exacerbation. 13. Osteoarthritis, generalized. 14. Essential hypertension. 15. Hypothyroidism. 16. Abdominal aortic aneurysm. 17. Hyperlipidemia. 18. Rheumatoid arthritis. Hospital Course: The patient is an elderly female, 76-year-old, who is on hospice due to her worsening pulmonary fibrosis requiring oxygen 3 L via nasal cannula all the time. The patient has had worsening shortness of breath and is dyspneic upon exertion. The patient also came in with severe nausea and vomiting. She has multiple other comorbidities including CHF, diabetes, hypertension, hypothyroidism, AAA, hyperlipidemia. The patient was found have fever and cough. Upon arrival, her labs showed elevated troponin. Her electrolytes were deranged including her magnesium and sodium. Her BNP was relatively high at 2167. Her procalcitonin was elevated as well as her white count. She was thought to have sepsis. She was found to have bilateral pneumonia and CHF exacerbation. The patient was started on diuresis. Cardiology and Pulmonology were consulted. The patient responded well to diuresis. She was also placed on prophylactic antibiotics. Her culture results today showed no growth. Urine culture also showed no growth. The patient's electrolytes were corrected. Her creatinine improved. Her procalcitonin trended down. White count normalized. The patient had echocardiogram done, which showed an ejection fraction of 37%. She also has moderate pulmonary hypertension, has moderate aortic, mitral and tricuspid regurgitation as well as left ventricular hypertrophy. The patient otherwise was doing better. No shortness of breath. Was back to baseline. CT scan of her chest had shown progressive pulmonary fibrosis and she was end-stage. She was given some steroids that improved her symptoms. Her aortic aneurysm was stable from previous. The patient has been cleared for discharge and was sent back to home with hospice. She will finish up a course of Levaquin and prednisone and then resume her home dose of prednisone. Medications: As per medication reconciliation list. Followup: Follow up as needed with primary care physician. Otherwise, care and comfort measures will be initiated with home hospice. Diet: Low-sodium fluid-restricted diet. Activity: Fall precautions. Total time spent discharging the patient was 41 minutes. Physical Examination: General: Awake, alert, oriented, mild distress, ill-appearing elderly female. CV: S1, S2. Respiratory: Diminished breath sounds. No wheezing. Abdomen: Soft, nontender, nondistended. Positive bowel sounds. Extremities: No clubbing, cyanosis, edema. Neurologic: Nonfocal. SA/MODL Voice ID: [id number] Report ID: [id number]
== END 2017-07-06 13:25 | disposition hospice, home (50) | DRG 871 ==
LOC: ER 13:37 → ERHOLD 15:37 → 4TH 18:06
PROVIDERS: ADMIT Family Medicine; ATTEND Family Medicine
DX: A41.9 Sepsis, unspecified organism (principal); J18.9 Pneumonia, unspecified organism; I50.43 Acute on chronic combined systolic (congestive) and diastolic (congestive) heart failure; N17.9 Acute kidney failure, unspecified; I13.0 Hypertensive heart and chronic kidney disease with heart failure and stage 1 through stage 4 chronic kidney disease, or unspecified chronic kidney disease; J96.10 Chronic respiratory failure, unspecified whether with hypoxia or hypercapnia; E87.1 Hypo-osmolality and hyponatremia; E44.0 Moderate protein-calorie malnutrition; E11.22 Type 2 diabetes mellitus with diabetic chronic kidney disease; E11.65 Type 2 diabetes mellitus with hyperglycemia; N18.2 Chronic kidney disease, stage 2 (mild); I35.1 Nonrheumatic aortic (valve) insufficiency; I27.20 Pulmonary hypertension, unspecified; Z68.21 Body mass index [BMI] 21.0-21.9, adult; E83.42 Hypomagnesemia; J84.10 Pulmonary fibrosis, unspecified; M15.9 Polyosteoarthritis, unspecified; E03.9 Hypothyroidism, unspecified; I71.4 Abdominal aortic aneurysm, without rupture; E78.5 Hyperlipidemia, unspecified; M06.9 Rheumatoid arthritis, unspecified
CPT/HCPCS: 36415; 71045; 71250; 80048; 80053; 80076; 81001; 82550; 82553; 82962; 83605; 83735; 83880; 84132; 84145; 84484; 85025; 85610; 85730; 86850; 86900; 86901; 87040; 87070; 87077; 87086; 87088; 87186; 87205; 93005; 93306; 94640; 94760; 96374; 96375; 97163; 99285; J0696; J3475; J7512